=== PATIENT | female | born 1935 | race Caucasian/White ===

== ENCOUNTER 2017-06-25 15:31 | Inpatient (IN) | payer BC, MEDICARE ==
[~2017-06-25] VITALS: Ht 159.8 cm; Wt 72.6 kg
--- NOTE | 2017-06-25 15:43 | Emergency Room Report ---
History of Present Illness Present Illness HPI Patient is an 82-year-old female sent in from assisted living for increased difficulty breathing for the past for days. Patient reportedly had prior history of bronchitis. She recently been hospitalized at [facility]. Patient did have increased shortness of breath as well as chest discomfort. She reported having a productive cough. She denied prior history of cardiac disease. 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 Differential included but was not limited to anemia, pneumonia, pneumothorax, myocardial infarction, pericardial effusion, congestive heart failure, acidosis. Because of complexity of patient' s case laboratory testing and imaging studies were ordered.The patient given breathing treatments as well as steroids. Patient was started on Bipap. ABG showed adequate oxygenation without evidence of acidosis. Patient appears to have a COPD exacerbation Dr. Thierry Moreno was contacted for inpatient managment due to covering physician for custodial. Labs Test 06/25/17 15:39 06/25/17 16:20 Arterial Blood pH 7.450 (7.350-7.450) Arterial Blood Partial Pressure CO2 30.7 mmHg (35.0-45.0) Arterial Blood Partial Pressure O2 520.5 mmHg (75.0-100.0) Arterial Blood HCO3 20.9 mmol/L (22.0-26.0) Arterial Blood Oxygen Saturation 99.4 % (92.0-98.0) Arterial Blood Base Excess -2.1 Polo Test Positive Lactic Acid Level 0.90 mmol/L (0.66-2.22) White Blood Count 6.1 K/UL (4.8-10.8) Red Blood Count 4.09 M/UL (4.20-5.40) Hemoglobin 13.3 G/DL (12.0-16.0) Hematocrit 39.4 % (37.0-47.0) Mean Corpuscular Volume 96 FL (80-99) Mean Corpuscular Hemoglobin 32.5 PG (27.0-31.0) Mean Corpuscular Hemoglobin Concent 33.7 G/DL (32.0-36.0) Red Cell Distribution Width 13.2 % (11.6-14.8) Platelet Count 184 K/UL (150-450) Mean Platelet Volume 8.1 FL (6.5-10.1) Neutrophils (%) (Auto) 63.6 % (45.0-75.0) Lymphocytes (%) (Auto) 18.7 % (20.0-45.0) Monocytes (%) (Auto) 14.7 % (1.0-10.0) Eosinophils (%) (Auto) 1.5 % (0.0-3.0) Basophils (%) (Auto) 1.5 % (0.0-2.0) Sodium Level 138 MMOL/L (136-145) Potassium Level 4.1 MMOL/L (3.5-5.1) Chloride Level 102 MMOL/L (98-107) Carbon Dioxide Level 24 MMOL/L (21-32) Anion Gap 12 mmol/L (5-15) Blood Urea Nitrogen 17 mg/dL (7-18) Creatinine 1.3 MG/DL (0.55-1.30) Estimat Glomerular Filtration Rate mL/min (>60) Glucose Level 122 MG/DL (74-106) Calcium Level 8.8 MG/DL (8.5-10.1) Total Bilirubin 0.3 MG/DL (0.2-1.0) Aspartate Amino Transf (AST/SGOT) 22 U/L (15-37) Alanine Aminotransferase (ALT/SGPT) 14 U/L (12-78) Alkaline Phosphatase 80 U/L (46-116) Total Creatine Kinase 120 U/L (26-308) Creatine Kinase MB 1.1 NG/ML (0.0-3.6) Creatine Kinase MB Relative Index 0.9 Troponin I 0.000 ng/mL (0.000-0.056) Pro-B-Type Natriuretic Peptide 655 pg/mL (0-125) Total Protein 7.6 G/DL (6.4-8.2) Albumin 3.2 G/DL (3.4-5.0) Globulin 4.4 g/dL Albumin/Globulin Ratio 0.7 (1.0-2.7) EKG Diagnostic Results Rate: normal - 74 ST Segments: no acute changes Rhythm Strip Diag. Results EP Interpretation: yes Rhythm: NSR, no PVC's, no ectopy Status: improved Disposition: ADMITTED INPATIENT Condition: Serious Nick Chris Jun 25, 2017 15:43
[2017-06-25] MEDS ORDERED: ALBUTEROL2.5 MG/3 M INH (15:47)
[2017-06-25] MEDS ORDERED: ZOFRAN4 M3 ORAL (15:48)
[2017-06-25] MEDS ORDERED: LISINOPRIL5 MG ORAL (15:50)
[2017-06-25] MEDS ORDERED: DOCUSATE SODIU100 M2 ORAL (15:50)
[2017-06-25] MEDS ORDERED: ZOLPIDEM TARTRAT5 MG ORAL (15:50)
--- NOTE | 2017-06-25 16:32 | Diagnostic Imaging Report ---
Indication: Dyspnea Comparison: None A single view chest radiograph was obtained. Findings: Cardiomediastinal appearance is within normal limits for age. Mild basilar atelectasis demonstrated. Pulmonary vascularity is appropriate. The diaphragmatic contour is smooth and costophrenic angles are sharp. No pleural effusions are identified. The bones are osteopenic. Impression: No acute findings
[2017-06-25 17:08] LABS: BASOPHILS % (AUTO) 1.5 % (0.0-2.0); EOSINOPHILS % (AUTO) 1.5 % (0.0-3.0); HEMATOCRIT 39.4 % (37.0-47.0); HEMOGLOBIN 13.3 G/DL (12.0-16.0); LYMPHOCYTES % (AUTO) 18.7 % (20.0-45.0); MEAN CORPUSCULAR VOLUME 96 FL (80-99); MONOCYTES % (AUTO) 14.7 % (1.0-10.0); NEUTROPHILS % (AUTO) 63.6 % (45.0-75.0); PLATELET COUNT 184 K/UL (150-450); RED BLOOD COUNT 4.09 M/UL (4.20-5.40); RED CELL DISTRIBUTION WIDTH 13.2 % (11.6-14.8); WHITE BLOOD COUNT 6.1 K/UL (4.8-10.8)
[2017-06-25 18:15] LABS: ANION GAP 12 mmol/L (5-15); BLOOD UREA NITROGEN 17 mg/dL (7-18); CALCIUM 8.8 MG/DL (8.5-10.1); CARBON DIOXIDE 24 MMOL/L (21-32); CHLORIDE 102 MMOL/L (98-107); CREATININE 1.3 MG/DL (0.55-1.30); POTASSIUM 4.1 MMOL/L (3.5-5.1); SODIUM 138 MMOL/L (136-145)
[2017-06-25] MEDS ORDERED: Morphine Sulfate 2mg/ml Inj IVP PRN (18:30)
[2017-06-25] MEDS ORDERED: LORazepam Inj 2mg/ml 1ml IV PRN (18:30)
[2017-06-25] MEDS ORDERED: Nitroglycerin Subl 0.4mg tab SL PRN (18:30)
[2017-06-25] MEDS ORDERED: Albuterol/Ipratropium 3ml neb HHN PRN (18:30)
--- NOTE | 2017-06-25 18:33 | Consultation ---
History of Present Illness General Date patient seen: Jun 25, 2017 Chief Complaint: Dyspnea/Respdistress Present Illness HPI 82-year-old female sent in from assisted living for increased difficulty breathing for the past 5 days. She recently been hospitalized at [facility] [place]. Patient did have increased shortness of breath as well as chest discomfort. She reported having a productive cough. Allergies: Coded Allergies: ASPIRIN (Verified Allergy, Intermediate, 06/25/17) Medication History Scheduled Albuterol Sulfate* (Albuterol Sulfate Hhn*), 3 ML INH THREE TIMES A DAY, ( Reported) Docusate Sodium (Docusate Sodium), 100 MG ORAL DAILY, (Reported) Lisinopril (Lisinopril*), 10 MG ORAL DAILY, (Reported) Scheduled PRN Ondansetron* (Zofran*), 4 MG ORAL Q6H PRN for Nausea & Vomiting, (Reported) Zolpidem Tartrate* (Zolpidem Tartrate*), 5 MG ORAL BEDTIME PRN for Insomnia, ( Reported) Patient History Healthcare decision maker Resuscitation status Advanced Directive on File Past Medical/Surgical History Past Medical/Surgical History: (1) COPD (chronic obstructive pulmonary disease) Review of Systems Constitutional: Reports: no symptoms, weakness Eye: Reports: nose congestion ENT: Reports: no symptoms Respiratory: Reports: shortness of breath, wheezing, sputum Physical Exam General Appearance: WD/WN Lines, tubes and drains: peripheral HEENT: normocephalic, atraumatic Neck: non-tender, supple Respiratory/Chest: rhonchi - bilaterally, rhonchi - left, rhonchi - right, expiratory wheezing Cardiovascular/Chest: normal peripheral pulses, normal rate Abdomen: normal bowel sounds, non tender Genitourinary/Rectal: normal genital exam, heme negative stool Extremities: normal range of motion Skin Exam: normal pigmentation 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: 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 Last 24 Hour Vital Signs Date Time Temp Pulse Resp B/P (MAP) Pulse Ox O2 Delivery O2 Flow Rate FiO2 06/25/17 17:04 30 06/25/17 16:47 68 23 100 Facial 100 06/25/17 16:16 67 20 100 Facial 100 06/25/17 16:16 67 20 Bi-pap 100 06/25/17 15:37 97.9 78 22 144/67 96 Non-Rebreather 97.9 Laboratory Tests Test 06/25/17 15:39 06/25/17 16:20 Arterial Blood pH 7.450 (7.350-7.450) Arterial Blood Partial Pressure CO2 30.7 mmHg (35.0-45.0) L Arterial Blood Partial Pressure O2 520.5 mmHg (75.0-100.0) H Arterial Blood HCO3 20.9 mmol/L (22.0-26.0) L Arterial Blood Oxygen Saturation 99.4 % (92.0-98.0) H Arterial Blood Base Excess -2.1 Polo Test Positive White Blood Count 6.1 K/UL (4.8-10.8) Red Blood Count 4.09 M/UL (4.20-5.40) L Hemoglobin 13.3 G/DL (12.0-16.0) Hematocrit 39.4 % (37.0-47.0) Mean Corpuscular Volume 96 FL (80-99) Mean Corpuscular Hemoglobin 32.5 PG (27.0-31.0) H Mean Corpuscular Hemoglobin Concent 33.7 G/DL (32.0-36.0) Red Cell Distribution Width 13.2 % (11.6-14.8) Platelet Count 184 K/UL (150-450) Mean Platelet Volume 8.1 FL (6.5-10.1) Neutrophils (%) (Auto) 63.6 % (45.0-75.0) Lymphocytes (%) (Auto) 18.7 % (20.0-45.0) L Monocytes (%) (Auto) 14.7 % (1.0-10.0) H Eosinophils (%) (Auto) 1.5 % (0.0-3.0) Basophils (%) (Auto) 1.5 % (0.0-2.0) Sodium Level 138 MMOL/L (136-145) Potassium Level 4.1 MMOL/L (3.5-5.1) Chloride Level 102 MMOL/L (98-107) Carbon Dioxide Level 24 MMOL/L (21-32) Anion Gap 12 mmol/L (5-15) Blood Urea Nitrogen 17 mg/dL (7-18) Creatinine 1.3 MG/DL (0.55-1.30) Estimat Glomerular Filtration Rate mL/min (>60) Glucose Level 122 MG/DL (74-106) H Calcium Level 8.8 MG/DL (8.5-10.1) Total Bilirubin Pending Aspartate Amino Transf (AST/SGOT) Pending Alanine Aminotransferase (ALT/SGPT) Pending Alkaline Phosphatase Pending Total Creatine Kinase Pending Creatine Kinase MB Pending Troponin I 0.000 ng/mL (0.000-0.056) Pro-B-Type Natriuretic Peptide Pending Total Protein Pending Albumin Pending Globulin Pending Height (Feet): 5 Height (Inches): 3.00 Weight (Pounds): 160 Medications Current Medications Medications (Trade) Dose Ordered Sig/Beto Route PRN Reason Start Time Stop Time Status Last Admin Dose Admin Albuterol/ Ipratropium (Albuterol/ Ipratropium) 3 ml Q4H PRN HHN dyspnea 06/25/17 18:30 06/30/17 18:29 Dextrose (Dextrose 50%) STAT PRN IV Hypoglycemia 06/25/17 18:30 07/25/17 18:29 UNV Heparin Sodium (Porcine) (Heparin 5000 units/ml) 5,000 units EVERY 12 HOURS SUBQ 06/25/17 21:00 07/25/17 20:59 Lorazepam (Ativan 2mg/ml 1ml) 0.5 mg Q4H PRN IV For Anxiety 06/25/17 18:30 07/02/17 18:29 Methylprednisolone Sodium Succinate (Solu-MEDROL) 60 mg EVERY 6 HOURS IV 06/26/17 00:00 07/26/17 00:00 Morphine Sulfate (Morphine Sulfate) 2 mg Q4H PRN IVP severe pain 7-10 06/25/17 18:30 07/02/17 18:29 Nitroglycerin (Ntg) 0.4 mg Q5M X 3 DOSES PRN SL Prn Chest Pain 06/25/17 18:30 07/25/17 18:29 Ondansetron HCl (Zofran) 4 mg Q6H PRN IVP Nausea & Vomiting 06/25/17 18:30 07/25/17 18:29 Piperacillin Sod/ Tazobactam Sod 2.25 gm/Dextrose 55 ml @ 110 mls/hr EVERY 8 HOURS IV 06/25/17 22:00 06/30/17 21:59 UNV Promethazine HCl/ Codeine (Phenergan with Codeine) 5 ml EVERY 6 HOURS PRN ORAL cough 06/25/17 18:30 07/25/17 18:29 UNV Temazepam (Restoril) 15 mg HSPRN PRN ORAL Insomnia 06/25/17 18:30 07/02/17 18:29 UNV Theophylline (Claude-Dur) 100 mg EVERY 12 HOURS ORAL 06/25/17 21:00 07/25/17 20:59 UNV Assessment/Plan Problem List: (1) Acute respiratory failure ICD Codes: J96.00 - Acute respiratory failure, unspecified whether with hypoxia or hypercapnia SNOMED: 16145011 (2) COPD with exacerbation ICD Codes: J44.1 - Chronic obstructive pulmonary disease with (acute) exacerbation SNOMED: 572791105 (3) Purulent bronchitis ICD Codes: J41.1 - Mucopurulent chronic bronchitis SNOMED: 66933451 (4) COPD (chronic obstructive pulmonary disease) ICD Codes: J44.9 - Chronic obstructive pulmonary disease, unspecified SNOMED: 43258578 Assessment/Plan respiratory treatment IV asteroids Iv abx echo echocardiogram titrate fio2 to sat of 92% chest PT JIM SAHNI Jun 25, 2017 18:33
[2017-06-25 18:37] LABS: ALANINE AMINOTRANSFERASE 14 U/L (12-78); ALBUMIN 3.2 G/DL (3.4-5.0); ALBUMIN/GLOBULIN RATIO 0.7 (1.0-2.7); ALKALINE PHOSPHATASE 80 U/L (46-116); ASPARTATE AMINO TRANSFERASE 22 U/L (15-37); BILIRUBIN,TOTAL 0.3 MG/DL (0.2-1.0); CKMB 1.1 NG/ML (0.0-3.6); CREATINE KINASE 120 U/L (26-308)
[2017-06-25 19:26] VITALS: BP 122/50
[2017-06-25 20:30] VITALS: BP 123/56
[2017-06-25] MEDS ORDERED: Piperacillin/Tazobactam 2.25 GM in D5W 55 ML IV SCH (22:00)
[2017-06-25] MEDS: Theophylline ER 100mg ORAL SCH (22:15)
[2017-06-25] MEDS: Zosyn 3.375gm q8h **Extended infusion IVPB SCH ×2 (22:16)
[2017-06-25] MEDS: Heparin 5000 units/ml inj SUBQ SCH (22:18)
--- NOTE | 2017-06-25 23:39 | History & Physical ---
History and Physical History & Physicial patient seen and examined placed on BIPAP. wheezing on exam. H&P to be dictated Ordered placed Labs/imaging reviewed HERIBERTO MEDINA M.D. Jun 25, 2017 23:39
[2017-06-26] VITALS: BP 154/71
[2017-06-26] MEDS: Solu-MEDROL 125mg Inj IV SCH ×5 (00:13→23:28)
[2017-06-26] MEDS ORDERED: Milk of Magnesia 30ml Ud ORAL PRN (03:00)
[2017-06-26 04:00] VITALS: BP 120/59
[2017-06-26] MEDS: Zosyn 3.375gm q8h **Extended infusion IVPB SCH ×6 (05:39→21:03)
[2017-06-26 08:00] VITALS: BP 128/60
[2017-06-26] MEDS: Theophylline ER 100mg ORAL SCH ×2 (08:20→21:01)
[2017-06-26] MEDS: Heparin 5000 units/ml inj SUBQ SCH ×2 (08:21→21:01)
--- NOTE | 2017-06-26 10:04 | Pulmonology Progress Note ---
Assessment/Plan Problems: (1) Acute respiratory failure (2) COPD with exacerbation (3) Purulent bronchitis (4) COPD (chronic obstructive pulmonary disease) Assessment/Plan slightly better add Tamiflu check sputum titrate fio2 check echo dvt prophylaxis d/w dr Paul Subjective ROS Limited/Unobtainable: No Constitutional: Reports: no symptoms HEENT: Repors: no symptoms Respiratory: Reports: no symptoms Allergies: Coded Allergies: ASPIRIN (Verified Allergy, Intermediate, 06/25/17) Objective Last 24 Hour Vital Signs Date Time Temp Pulse Resp B/P (MAP) Pulse Ox O2 Delivery O2 Flow Rate FiO2 06/26/17 08:00 99.0 94 21 128/60 97 Nasal Cannula 3.0 06/26/17 07:48 32 06/26/17 07:37 102 06/26/17 06:07 82 20 98 Nasal Cannula 3.0 32 06/26/17 06:00 76 22 94 Nasal Cannula 3.0 32 06/26/17 06:00 36 06/26/17 05:07 83 22 99 Facial 30 06/26/17 04:02 67 06/26/17 04:00 30 06/26/17 04:00 99.4 67 20 120/59 94 Bi-pap 30 06/26/17 03:02 73 18 97 Facial 30 06/26/17 01:08 81 28 100 Facial 30 06/26/17 00:00 30 06/26/17 00:00 98.1 80 20 154/71 90 Bi-pap 06/25/17 23:53 69 06/25/17 23:27 69 26 100 Facial 30 06/25/17 21:27 74 28 99 Facial 30 06/25/17 20:30 74 20 Bi-pap 30 06/25/17 20:30 73 16 123/56 97 Bi-pap 06/25/17 19:45 98.6 74 20 122/50 98 Bi-pap 06/25/17 19:26 98.0 74 20 122/50 98 Bi-pap 98.0 06/25/17 19:04 71 24 100 Facial 30 06/25/17 17:04 30 06/25/17 16:47 68 23 100 Facial 100 06/25/17 16:16 67 20 100 Facial 100 06/25/17 16:16 67 20 Bi-pap 100 06/25/17 15:37 97.9 78 22 144/67 96 Non-Rebreather 97.9 Intake and Output 06/25/17 06/26/17 19:00 07:00 Intake Total 387.1 ml Output Total 350 ml Balance 37.1 ml Intake Oral 240 ml IV Total 147.1 ml Output Urine Total 350 ml # Voids 3 Objective General Appearance: WD/WN Lines, tubes and drains: peripheral HEENT: normocephalic, atraumatic Neck: non-tender, supple Respiratory/Chest: rhonchi - bilaterally, rhonchi - left, rhonchi - right, expiratory wheezing Cardiovascular/Chest: normal peripheral pulses, normal rate Abdomen: normal bowel sounds, non tender Genitourinary/Rectal: normal genital exam, heme negative stool Extremities: normal range of motion Skin Exam: normal pigmentation Microbiology Date/Time Source Procedure Growth Status 06/25/17 20:00 Nasal Nares Influenza Types A,B Antigen (DOROTHY) - Final Complete Laboratory Tests 06/25/17 15:39: Arterial Blood pH 7.450, Arterial Blood Partial Pressure CO2 30.7L, Arterial Blood Partial Pressure O2 520.5H, Arterial Blood HCO3 20.9L, Arterial Blood Oxygen Saturation 99.4H, Arterial Blood Base Excess -2.1, Polo Test Positive, Lactic Acid Level 0.90 06/25/17 16:20: White Blood Count 6.1, Red Blood Count 4.09L, Hemoglobin 13.3, Hematocrit 39.4, Mean Corpuscular Volume 96, Mean Corpuscular Hemoglobin 32.5H, Mean Corpuscular Hemoglobin Concent 33.7, Red Cell Distribution Width 13.2, Platelet Count 184, Mean Platelet Volume 8.1, Neutrophils (%) (Auto) 63.6, Lymphocytes (%) (Auto) 18.7L, Monocytes (%) (Auto) 14.7H, Eosinophils (%) (Auto) 1.5, Basophils (%) ( Auto) 1.5, Sodium Level 138, Potassium Level 4.1, Chloride Level 102, Carbon Dioxide Level 24, Anion Gap 12, Blood Urea Nitrogen 17, Creatinine 1.3, Estimat Glomerular Filtration Rate , Glucose Level 122H, Calcium Level 8.8, Total Bilirubin 0.3, Aspartate Amino Transf (AST/SGOT) 22, Alanine Aminotransferase ( ALT/SGPT) 14, Alkaline Phosphatase 80, Total Creatine Kinase 120, Creatine Kinase MB 1.1, Creatine Kinase MB Relative Index 0.9, Troponin I 0.000, Pro-B- Type Natriuretic Peptide 655H, Total Protein 7.6, Albumin 3.2L, Globulin 4.4, Albumin/Globulin Ratio 0.7L Current Medications Medications (Trade) Dose Ordered Sig/Beto Route PRN Reason Start Time Stop Time Status Last Admin Dose Admin Acetaminophen (Tylenol) 650 mg Q4H PRN ORAL For Pain 06/26/17 03:00 07/26/17 02:59 Albuterol/ Ipratropium (Albuterol/ Ipratropium) 3 ml Q4H PRN HHN dyspnea 06/25/17 18:30 06/30/17 18:29 06/26/17 06:06 Dextrose (Dextrose 50%) STAT PRN IV Hypoglycemia 06/25/17 18:30 07/25/17 18:29 Diphenhydramine HCl (Benadryl) 25 mg Q8H PRN ORAL Itching 06/26/17 03:00 07/26/17 02:59 Heparin Sodium (Porcine) (Heparin 5000 units/ml) 5,000 units EVERY 12 HOURS SUBQ 06/25/17 21:00 07/25/17 20:59 06/26/17 08:21 Lorazepam (Ativan 2mg/ml 1ml) 0.5 mg Q4H PRN IV For Anxiety 06/25/17 18:30 07/02/17 18:29 Magnesium Hydroxide (Mom) 30 ml Q24HRS PRN ORAL Constipation 06/26/17 03:00 07/26/17 02:59 Methylprednisolone Sodium Succinate (Solu-MEDROL) 60 mg EVERY 6 HOURS IV 06/26/17 00:00 07/26/17 00:00 06/26/17 05:36 Morphine Sulfate (Morphine Sulfate) 2 mg Q4H PRN IVP severe pain 7-10 06/25/17 18:30 07/02/17 18:29 Nitroglycerin (Ntg) 0.4 mg Q5M X 3 DOSES PRN SL Prn Chest Pain 06/25/17 18:30 07/25/17 18:29 Ondansetron HCl (Zofran) 4 mg Q6H PRN IVP Nausea & Vomiting 06/25/17 18:30 07/25/17 18:29 Oseltamivir Phosphate (Tamiflu) 75 mg Q12HR ORAL 06/26/17 11:00 07/01/17 23:59 Piperacillin Sod/ Tazobactam Sod 3.375 gm/Sodium Chloride 110 ml @ 27.5 mls/hr EVERY 8 HOURS IVPB 06/25/17 20:00 06/30/17 19:59 06/26/17 05:39 Promethazine HCl/ Codeine (Phenergan with Codeine) 5 ml Q6H PRN ORAL cough 06/25/17 18:30 07/25/17 18:29 Temazepam (Restoril) 15 mg HSPRN PRN ORAL Insomnia 06/25/17 21:00 07/02/17 20:59 Theophylline (Claude-Dur) 100 mg EVERY 12 HOURS ORAL 06/25/17 21:00 07/25/17 20:59 06/26/17 08:20 JIM SAHNI Jun 26, 2017 10:04
[2017-06-26] MEDS ORDERED: Oseltamivir 75mg cap ORAL SCH (11:00)
[2017-06-26] MEDS ORDERED: Tubing IV Secondary IV ONE (11:15)
[2017-06-26] MEDS ORDERED: NS 500ML ONE (11:15)
[2017-06-26 12:00] VITALS: BP 120/60
--- NOTE | 2017-06-26 13:12 | Internal Med Progress Note ---
Subjective Physician Name Heriberto Medina Attending Physician Heriberto Medina M.D. Current Medications Medications (Trade) Dose Ordered Sig/Beto Route PRN Reason Start Time Stop Time Status Last Admin Dose Admin Acetaminophen (Tylenol) 650 mg Q4H PRN ORAL For Pain 06/26/17 03:00 07/26/17 02:59 Albuterol/ Ipratropium (Albuterol/ Ipratropium) 3 ml Q4H PRN HHN dyspnea 06/25/17 18:30 06/30/17 18:29 06/26/17 06:06 Dextrose (Dextrose 50%) STAT PRN IV Hypoglycemia 06/25/17 18:30 07/25/17 18:29 Diphenhydramine HCl (Benadryl) 25 mg Q8H PRN ORAL Itching 06/26/17 03:00 07/26/17 02:59 Heparin Sodium (Porcine) (Heparin 5000 units/ml) 5,000 units EVERY 12 HOURS SUBQ 06/25/17 21:00 07/25/17 20:59 06/26/17 08:21 Lorazepam (Ativan 2mg/ml 1ml) 0.5 mg Q4H PRN IV For Anxiety 06/25/17 18:30 07/02/17 18:29 Magnesium Hydroxide (Mom) 30 ml Q24HRS PRN ORAL Constipation 06/26/17 03:00 07/26/17 02:59 Methylprednisolone Sodium Succinate (Solu-MEDROL) 60 mg EVERY 6 HOURS IV 06/26/17 00:00 07/26/17 00:00 06/26/17 12:54 Morphine Sulfate (Morphine Sulfate) 2 mg Q4H PRN IVP severe pain 7-10 06/25/17 18:30 07/02/17 18:29 Nitroglycerin (Ntg) 0.4 mg Q5M X 3 DOSES PRN SL Prn Chest Pain 06/25/17 18:30 07/25/17 18:29 Ondansetron HCl (Zofran) 4 mg Q6H PRN IVP Nausea & Vomiting 06/25/17 18:30 07/25/17 18:29 Oseltamivir Phosphate (Tamiflu) 75 mg Q12HR ORAL 06/26/17 11:00 07/01/17 23:59 06/26/17 12:53 Piperacillin Sod/ Tazobactam Sod 3.375 gm/Sodium Chloride 110 ml @ 27.5 mls/hr EVERY 8 HOURS IVPB 06/25/17 20:00 06/30/17 19:59 06/26/17 05:39 Promethazine HCl/ Codeine (Phenergan with Codeine) 5 ml Q6H PRN ORAL cough 06/25/17 18:30 07/25/17 18:29 Temazepam (Restoril) 15 mg HSPRN PRN ORAL Insomnia 06/25/17 21:00 07/02/17 20:59 Theophylline (Claude-Dur) 100 mg EVERY 12 HOURS ORAL 06/25/17 21:00 07/25/17 20:59 06/26/17 08:20 Allergies: Coded Allergies: ASPIRIN (Verified Allergy, Intermediate, 06/25/17) All Systems: reviewed and negative except above - cough, less SOB Objective Last Vital Signs Date Time Temp Pulse Resp B/P (MAP) Pulse Ox O2 Delivery O2 Flow Rate FiO2 06/26/17 11:28 68 06/26/17 08:00 99.0 21 128/60 97 Nasal Cannula 3.0 06/26/17 07:48 32 General Appearance: no apparent distress, alert EENT: normal ENT inspection, TMs normal Neck: normal alignment, supple Cardiovascular: normal rate, regular rhythm Respiratory/Chest: no respiratory distress, decreased breath sounds Abdomen: soft, no organomegaly, no mass Edema: trace edema Neurologic: alert, responsive Skin: normal pigmentation, warm/dry, cyanotic Laboratory Tests Test 06/25/17 15:39 06/25/17 16:20 Arterial Blood pH 7.450 (7.350-7.450) Arterial Blood Partial Pressure CO2 30.7 mmHg (35.0-45.0) L Arterial Blood Partial Pressure O2 520.5 mmHg (75.0-100.0) H Arterial Blood HCO3 20.9 mmol/L (22.0-26.0) L Arterial Blood Oxygen Saturation 99.4 % (92.0-98.0) H Arterial Blood Base Excess -2.1 Polo Test Positive Lactic Acid Level 0.90 mmol/L (0.66-2.22) White Blood Count 6.1 K/UL (4.8-10.8) Red Blood Count 4.09 M/UL (4.20-5.40) L Hemoglobin 13.3 G/DL (12.0-16.0) Hematocrit 39.4 % (37.0-47.0) Mean Corpuscular Volume 96 FL (80-99) Mean Corpuscular Hemoglobin 32.5 PG (27.0-31.0) H Mean Corpuscular Hemoglobin Concent 33.7 G/DL (32.0-36.0) Red Cell Distribution Width 13.2 % (11.6-14.8) Platelet Count 184 K/UL (150-450) Mean Platelet Volume 8.1 FL (6.5-10.1) Neutrophils (%) (Auto) 63.6 % (45.0-75.0) Lymphocytes (%) (Auto) 18.7 % (20.0-45.0) L Monocytes (%) (Auto) 14.7 % (1.0-10.0) H Eosinophils (%) (Auto) 1.5 % (0.0-3.0) Basophils (%) (Auto) 1.5 % (0.0-2.0) Sodium Level 138 MMOL/L (136-145) Potassium Level 4.1 MMOL/L (3.5-5.1) Chloride Level 102 MMOL/L (98-107) Carbon Dioxide Level 24 MMOL/L (21-32) Anion Gap 12 mmol/L (5-15) Blood Urea Nitrogen 17 mg/dL (7-18) Creatinine 1.3 MG/DL (0.55-1.30) Estimat Glomerular Filtration Rate mL/min (>60) Glucose Level 122 MG/DL (74-106) H Calcium Level 8.8 MG/DL (8.5-10.1) Total Bilirubin 0.3 MG/DL (0.2-1.0) Aspartate Amino Transf (AST/SGOT) 22 U/L (15-37) Alanine Aminotransferase (ALT/SGPT) 14 U/L (12-78) Alkaline Phosphatase 80 U/L (46-116) Total Creatine Kinase 120 U/L (26-308) Creatine Kinase MB 1.1 NG/ML (0.0-3.6) Creatine Kinase MB Relative Index 0.9 Troponin I 0.000 ng/mL (0.000-0.056) Pro-B-Type Natriuretic Peptide 655 pg/mL (0-125) H Total Protein 7.6 G/DL (6.4-8.2) Albumin 3.2 G/DL (3.4-5.0) L Globulin 4.4 g/dL Albumin/Globulin Ratio 0.7 (1.0-2.7) L Microbiology Date/Time Source Procedure Growth Status 06/25/17 20:00 Nasal Nares Influenza Types A,B Antigen (DOROTHY) - Final Complete Intake and Output 06/25/17 06/26/17 19:00 07:00 Intake Total 387.1 ml Output Total 350 ml Balance 37.1 ml Intake Oral 240 ml IV Total 147.1 ml Output Urine Total 350 ml # Voids 3 Assessment/Plan Assessment/Plan Problem List: 1. COPD Exacerbation - improving - TERESA - BIPAP prn - Pulmonary consult - Solumedrol 60mg IV Q 6hrs - Duoneb Q 6 ATC and prn - Tamiflu empirically despite negative flu screen 2. htn -- controlled 3. h/o osteomyelitis HERIBERTO MEDINA M.D. Jun 26, 2017 13:12
[2017-06-26] MEDS: Promethazine/Codeine 5ml UD ORAL PRN (13:20)
[2017-06-26] MEDS: Albuterol/Ipratropium 3ml neb HHN SCH ×2 (14:16→18:53)
[2017-06-26 16:00] VITALS: BP 122/60
--- NOTE | 2017-06-26 16:38 | Cardiology Report ---
APPROVED REPORT EXAM: Two-dimensional and M-mode echocardiogram with Doppler and color Doppler. INDICATION Left ventricular function M-Mode DIMENSIONS IVSd0.7 (0.7-1.1cm)Left Atrium (MM)4.2 (1.6-4.0cm) LVDd4.1 (3.5-5.6cm)Aortic Root2.7 (2.0-3.7cm) PWd0.9 (0.7-1.1cm)Aortic Cusp Exc.1.6 (1.5-2.0cm) LVDs2.1 (2.5-4.0cm) PWs1.0 cm Technically difficult study due to poor acoustical windows. Normal left ventricular chamber size, systolic function and wall motion. Left ventricular ejection fraction estimated to be 60-65%. No evidence of left ventricular hypertrophy. Small posterior pericardial effusion. All other cardiac chamber sizes are within normal limits. Focal aortic valve sclerosis with adequate cusp excursion. Thickened mitral valve leaflets with normal excursion. Mild mitral annulus and aortic root calcification. Pulmonic valve not well visualized. Normal tricuspid valve structure. IVC is normal in size and collapsible with respiration. A color flow and spectral Doppler study was performed and revealed: No aortic regurgitation. No mitral regurgitation. Mitral diastolic velocities suggest reduced left ventricular relaxation c/w diastolic dysfunction grade 1. No tricuspid regurgitation.
--- NOTE | 2017-06-26 17:01 | Cardiology Report ---
APPROVED REPORT EKG Measurement Heart [id number] Normal sinus rhythm Moderate voltage criteria for LVH, may be normal variant delay in r wave progression Borderline ECG
[2017-06-26 20:00] VITALS: BP 120/57
[2017-06-27] VITALS (7 sets, daily range): BP systolic 125–149; BP diastolic 59–98
[2017-06-27] MEDS: Albuterol/Ipratropium 3ml neb HHN SCH ×4 (00:42→20:18)
[2017-06-27] MEDS: Solu-MEDROL 125mg Inj IV SCH ×2 (05:16→21:39)
[2017-06-27] MEDS: Zosyn 3.375gm q8h **Extended infusion IVPB SCH ×4 (05:16→14:35)
[2017-06-27 06:12] LABS: CARBON DIOXIDE 28 MMOL/L (21-32); CHLORIDE 102 MMOL/L (98-107); POTASSIUM 3.1 MMOL/L (3.5-5.1); SODIUM 137 MMOL/L (136-145)
[2017-06-27 06:13] LABS: ANION GAP 9 mmol/L (5-15); BLOOD UREA NITROGEN 18 mg/dL (7-18); CALCIUM 8.4 MG/DL (8.5-10.1); CREATININE 1.4 MG/DL (0.55-1.30)
[2017-06-27 06:14] LABS: ALANINE AMINOTRANSFERASE 13 U/L (12-78); ALBUMIN 2.7 G/DL (3.4-5.0); ALBUMIN/GLOBULIN RATIO 0.7 (1.0-2.7); ALKALINE PHOSPHATASE 62 U/L (46-116); ASPARTATE AMINO TRANSFERASE 12 U/L (15-37); BILIRUBIN,TOTAL 0.3 MG/DL (0.2-1.0)
[2017-06-27 06:24] LABS: WHITE BLOOD COUNT 8.2 K/UL (4.8-10.8)
[2017-06-27 06:25] LABS: HEMATOCRIT 32.1 % (37.0-47.0); LYMPHOCYTES % (AUTO) 15.2 % (20.0-45.0); MEAN CORPUSCULAR VOLUME 94 FL (80-99); MONOCYTES % (AUTO) 7.4 % (1.0-10.0); PLATELET COUNT 190 K/UL (150-450); RED CELL DISTRIBUTION WIDTH 13.2 % (11.6-14.8)
[2017-06-27 06:26] LABS: BASOPHILS % (AUTO) 0.4 % (0.0-2.0)
[2017-06-27] MEDS: Promethazine/Codeine 5ml UD ORAL PRN ×2 (08:16→14:46)
[2017-06-27] MEDS: Heparin 5000 units/ml inj SUBQ SCH ×2 (08:17→21:39)
[2017-06-27] MEDS: Theophylline ER 100mg ORAL SCH ×2 (08:17→21:37)
--- NOTE | 2017-06-27 10:44 | Pulmonology Progress Note ---
Assessment/Plan Problems: (1) Acute respiratory failure (2) COPD with exacerbation (3) Purulent bronchitis (4) COPD (chronic obstructive pulmonary disease) Assessment/Plan slightly better add Tamiflu check sputum titrate fio2 check echo d[facility] and repeat BC Subjective ROS Limited/Unobtainable: No Interval Events: less cough Allergies: Coded Allergies: ASPIRIN (Verified Allergy, Intermediate, 06/25/17) Objective Last 24 Hour Vital Signs Date Time Temp Pulse Resp B/P (MAP) Pulse Ox O2 Delivery O2 Flow Rate FiO2 06/27/17 08:00 96.3 99 21 136/72 98 Nasal Cannula 3.5 06/27/17 07:46 103 06/27/17 07:30 84 18 100 Nasal Cannula 3.0 32 06/27/17 07:24 32 06/27/17 07:24 80 18 96 Nasal Cannula 3.0 32 06/27/17 04:00 96.6 77 20 127/60 95 Nasal Cannula 3.0 06/27/17 04:00 84 06/27/17 00:57 77 20 98 Nasal Cannula 3.0 32 06/27/17 00:41 32 06/27/17 00:41 77 20 98 Nasal Cannula 3.0 32 06/27/17 00:00 97.0 77 20 130/59 98 Nasal Cannula 3.0 06/26/17 23:25 75 06/26/17 20:00 97.6 92 24 120/57 97 Nasal Cannula 3.0 06/26/17 19:12 78 20 97 Nasal Cannula 3.0 32 06/26/17 19:07 87 06/26/17 18:57 78 20 Nasal Cannula 3.0 32 06/26/17 18:53 32 06/26/17 18:51 78 20 97 Nasal Cannula 3.0 32 06/26/17 16:00 98.0 72 20 122/60 96 Nasal Cannula 3.0 06/26/17 14:28 80 20 99 Nasal Cannula 3.0 32 06/26/17 14:17 70 18 96 Nasal Cannula 3.0 32 06/26/17 14:17 32 06/26/17 13:30 79 06/26/17 12:00 98.7 71 22 120/60 97 Nasal Cannula 3.0 06/26/17 11:28 68 Intake and Output 06/26/17 06/27/17 19:00 07:00 Intake Total 487.9 ml 270.0 ml Balance 487.9 ml 270.0 ml Intake Oral 360 ml 50 ml IV Total 127.9 ml 220.0 ml # Voids 3 2 # Bowel Movements 8 2 Objective General Appearance: WD/WN Lines, tubes and drains: peripheral HEENT: normocephalic, atraumatic Neck: non-tender, supple Respiratory/Chest: rhonchi - bilaterally, rhonchi - left, rhonchi - right, expiratory wheezing Cardiovascular/Chest: normal peripheral pulses, normal rate Abdomen: normal bowel sounds, non tender Genitourinary/Rectal: normal genital exam, heme negative stool Extremities: normal range of motion Skin Exam: normal pigmentation Microbiology Date/Time Source Procedure Growth Status 06/25/17 16:20 Blood Blood Culture - Preliminary Resulted 06/25/17 16:20 Blood Blood Culture - Preliminary NO GROWTH AFTER 24 HOURS Resulted 06/26/17 06:00 Sputum Gram Stain Pending Resulted 06/26/17 06:00 Sputum Sputum Culture - Preliminary NORMAL UPPER RESPIRATORY PEACE AT 24 ... Resulted 06/25/17 20:00 Nasal Nares Influenza Types A,B Antigen (DOROTHY) - Final Complete Laboratory Tests 06/27/17 03:50: White Blood Count 8.2, Red Blood Count 3.40L, Hemoglobin 11.0L, Hematocrit 32.1L , Mean Corpuscular Volume 94, Mean Corpuscular Hemoglobin 32.3H, Mean Corpuscular Hemoglobin Concent 34.2, Red Cell Distribution Width 13.2, Platelet Count 190, Mean Platelet Volume 7.9, Neutrophils (%) (Auto) 77.0H, Lymphocytes ( %) (Auto) 15.2L, Monocytes (%) (Auto) 7.4, Eosinophils (%) (Auto) 0.0, Basophils (%) (Auto) 0.4, Sodium Level 137, Potassium Level 3.1L, Chloride Level 102, Carbon Dioxide Level 28, Anion Gap 9, Blood Urea Nitrogen 18, Creatinine 1.4H, Estimat Glomerular Filtration Rate , Glucose Level 262#H, Calcium Level 8.4L, Total Bilirubin 0.3, Aspartate Amino Transf (AST/SGOT) 12L, Alanine Aminotransferase (ALT/SGPT) 13, Alkaline Phosphatase 62, Pro-B-Type Natriuretic Peptide 695H, Total Protein 6.7, Albumin 2.7L, Globulin 4.0, Albumin /Globulin Ratio 0.7L Current Medications Medications (Trade) Dose Ordered Sig/Beto Route PRN Reason Start Time Stop Time Status Last Admin Dose Admin Acetaminophen (Tylenol) 650 mg Q4H PRN ORAL For Pain 06/26/17 03:00 07/26/17 02:59 Albuterol/ Ipratropium (Albuterol/ Ipratropium) 3 ml Q4H PRN HHN dyspnea 06/25/17 18:30 06/30/17 18:29 06/26/17 06:06 Albuterol/ Ipratropium (Albuterol/ Ipratropium) 3 ml Q6HRT HHN 06/26/17 13:30 07/01/17 13:29 06/27/17 07:24 Dextrose (Dextrose 50%) STAT PRN IV Hypoglycemia 06/25/17 18:30 07/25/17 18:29 Diphenhydramine HCl (Benadryl) 25 mg Q8H PRN ORAL Itching 06/26/17 03:00 07/26/17 02:59 Heparin Sodium (Porcine) (Heparin 5000 units/ml) 5,000 units EVERY 12 HOURS SUBQ 06/25/17 21:00 07/25/17 20:59 06/27/17 08:17 Lorazepam (Ativan 2mg/ml 1ml) 0.5 mg Q4H PRN IV For Anxiety 06/25/17 18:30 07/02/17 18:29 Magnesium Hydroxide (Mom) 30 ml Q24HRS PRN ORAL Constipation 06/26/17 03:00 07/26/17 02:59 Methylprednisolone Sodium Succinate (Solu-MEDROL) 60 mg EVERY 6 HOURS IV 06/26/17 00:00 07/26/17 00:00 06/27/17 05:16 Morphine Sulfate (Morphine Sulfate) 2 mg Q4H PRN IVP severe pain 7-10 06/25/17 18:30 07/02/17 18:29 Nitroglycerin (Ntg) 0.4 mg Q5M X 3 DOSES PRN SL Prn Chest Pain 06/25/17 18:30 07/25/17 18:29 Ondansetron HCl (Zofran) 4 mg Q6H PRN IVP Nausea & Vomiting 06/25/17 18:30 07/25/17 18:29 Oseltamivir Phosphate (Tamiflu) 30 mg Q12HR ORAL 06/26/17 21:00 07/01/17 23:59 06/27/17 08:16 Piperacillin Sod/ Tazobactam Sod 3.375 gm/Sodium Chloride 110 ml @ 27.5 mls/hr EVERY 8 HOURS IVPB 06/25/17 20:00 06/30/17 19:59 06/27/17 05:16 Promethazine HCl/ Codeine (Phenergan with Codeine) 5 ml Q6H PRN ORAL cough 06/25/17 18:30 07/25/17 18:29 06/27/17 08:16 Temazepam (Restoril) 15 mg HSPRN PRN ORAL Insomnia 06/25/17 21:00 07/02/17 20:59 Theophylline (Claude-Dur) 100 mg EVERY 12 HOURS ORAL 06/25/17 21:00 07/25/17 20:59 06/27/17 08:17 JIM SAHNI Jun 27, 2017 10:44
--- NOTE | 2017-06-27 11:42 | Diagnostic Imaging Report ---
Indication: Dyspnea Comparison: 06/25/2017 A single view chest radiograph was obtained. Findings: Cardiomediastinal appearance is within normal limits for age. Pulmonary vascularity is appropriate. The diaphragmatic contour is smooth and costophrenic angles are sharp. No pleural effusions are identified. The bones are osteopenic. Impression: No acute findings
[2017-06-27 13:36] LABS: APPEARANCE,URINE CLEAR; BILIRUBIN, URINE NEGATIVE (NEGATIVE); COLOR,URINE PALE YELLOW; GLUCOSE, URINE (UA) 2+ (NEGATIVE); KETONES,URINE NEGATIVE (NEGATIVE); LEUKOCYTE ESTERASE ,URINE 1+ (NEGATIVE); NITRITE,URINE NEGATIVE (NEGATIVE); PH,URINE 5 (4.5-8.0); PROTEIN,URINE NEGATIVE (NEGATIVE); UROBILINOGEN,URINE NORMAL MG/DL (0.0-1.0)
--- NOTE | 2017-06-27 15:48 | Internal Med Progress Note ---
Subjective Physician Name Heriberto Medina Attending Physician Heriberto Medina M.D. Current Medications Medications (Trade) Dose Ordered Sig/Beto Route PRN Reason Start Time Stop Time Status Last Admin Dose Admin Acetaminophen (Tylenol) 650 mg Q4H PRN ORAL For Pain 06/26/17 03:00 07/26/17 02:59 Albuterol/ Ipratropium (Albuterol/ Ipratropium) 3 ml Q4H PRN HHN dyspnea 06/25/17 18:30 06/30/17 18:29 06/26/17 06:06 Albuterol/ Ipratropium (Albuterol/ Ipratropium) 3 ml Q6HRT HHN 06/26/17 13:30 07/01/17 13:29 06/27/17 13:15 Dextrose (Dextrose 50%) STAT PRN IV Hypoglycemia 06/25/17 18:30 07/25/17 18:29 Diphenhydramine HCl (Benadryl) 25 mg Q8H PRN ORAL Itching 06/26/17 03:00 07/26/17 02:59 Heparin Sodium (Porcine) (Heparin 5000 units/ml) 5,000 units EVERY 12 HOURS SUBQ 06/25/17 21:00 07/25/17 20:59 06/27/17 08:17 Lorazepam (Ativan 2mg/ml 1ml) 0.5 mg Q4H PRN IV For Anxiety 06/25/17 18:30 07/02/17 18:29 Magnesium Hydroxide (Mom) 30 ml Q24HRS PRN ORAL Constipation 06/26/17 03:00 07/26/17 02:59 Methylprednisolone Sodium Succinate (Solu-MEDROL) 60 mg EVERY 12 HOURS IV 06/27/17 21:00 07/26/17 00:00 Morphine Sulfate (Morphine Sulfate) 2 mg Q4H PRN IVP severe pain 7-10 06/25/17 18:30 07/02/17 18:29 Nitroglycerin (Ntg) 0.4 mg Q5M X 3 DOSES PRN SL Prn Chest Pain 06/25/17 18:30 07/25/17 18:29 Ondansetron HCl (Zofran) 4 mg Q6H PRN IVP Nausea & Vomiting 06/25/17 18:30 07/25/17 18:29 Oseltamivir Phosphate (Tamiflu) 30 mg Q12HR ORAL 06/26/17 21:00 07/01/17 23:59 06/27/17 08:16 Piperacillin Sod/ Tazobactam Sod 3.375 gm/Sodium Chloride 110 ml @ 27.5 mls/hr EVERY 8 HOURS IVPB 06/25/17 20:00 06/30/17 19:59 06/27/17 14:35 Promethazine HCl/ Codeine (Phenergan with Codeine) 5 ml Q6H PRN ORAL cough 06/25/17 18:30 07/25/17 18:29 06/27/17 14:46 Temazepam (Restoril) 15 mg HSPRN PRN ORAL Insomnia 06/25/17 21:00 07/02/17 20:59 Theophylline (Claude-Dur) 100 mg EVERY 12 HOURS ORAL 06/25/17 21:00 07/25/17 20:59 06/27/17 08:17 Allergies: Coded Allergies: ASPIRIN (Verified Allergy, Intermediate, 06/25/17) All Systems: reviewed and negative except above - on 3L O2; some SOB today ; coughing Objective Last Vital Signs Date Time Temp Pulse Resp B/P (MAP) Pulse Ox O2 Delivery O2 Flow Rate FiO2 06/27/17 13:17 82 18 100 Nasal Cannula 3.0 32 06/27/17 12:00 96.1 133/61 General Appearance: no apparent distress, alert Neck: normal alignment, supple Cardiovascular: normal rate, regular rhythm Respiratory/Chest: chest wall non-tender, expiratory wheezing Abdomen: soft, no organomegaly, no mass Extremities: normal range of motion, non-tender Edema: trace edema Skin: normal pigmentation, warm/dry Laboratory Tests Test 06/27/17 03:50 06/27/17 13:15 White Blood Count 8.2 K/UL (4.8-10.8) Red Blood Count 3.40 M/UL (4.20-5.40) L Hemoglobin 11.0 G/DL (12.0-16.0) L Hematocrit 32.1 % (37.0-47.0) L Mean Corpuscular Volume 94 FL (80-99) Mean Corpuscular Hemoglobin 32.3 PG (27.0-31.0) H Mean Corpuscular Hemoglobin Concent 34.2 G/DL (32.0-36.0) Red Cell Distribution Width 13.2 % (11.6-14.8) Platelet Count 190 K/UL (150-450) Mean Platelet Volume 7.9 FL (6.5-10.1) Neutrophils (%) (Auto) 77.0 % (45.0-75.0) H Lymphocytes (%) (Auto) 15.2 % (20.0-45.0) L Monocytes (%) (Auto) 7.4 % (1.0-10.0) Eosinophils (%) (Auto) 0.0 % (0.0-3.0) Basophils (%) (Auto) 0.4 % (0.0-2.0) Sodium Level 137 MMOL/L (136-145) Potassium Level 3.1 MMOL/L (3.5-5.1) L Chloride Level 102 MMOL/L (98-107) Carbon Dioxide Level 28 MMOL/L (21-32) Anion Gap 9 mmol/L (5-15) Blood Urea Nitrogen 18 mg/dL (7-18) Creatinine 1.4 MG/DL (0.55-1.30) H Estimat Glomerular Filtration Rate mL/min (>60) Glucose Level 262 MG/DL (74-106) #H Calcium Level 8.4 MG/DL (8.5-10.1) L Total Bilirubin 0.3 MG/DL (0.2-1.0) Aspartate Amino Transf (AST/SGOT) 12 U/L (15-37) L Alanine Aminotransferase (ALT/SGPT) 13 U/L (12-78) Alkaline Phosphatase 62 U/L (46-116) Pro-B-Type Natriuretic Peptide 695 pg/mL (0-125) H Total Protein 6.7 G/DL (6.4-8.2) Albumin 2.7 G/DL (3.4-5.0) L Globulin 4.0 g/dL Albumin/Globulin Ratio 0.7 (1.0-2.7) L Urine Color Pale yellow Urine Appearance Clear Urine pH 5 (4.5-8.0) Urine Specific [place] 1.015 (1.005-1.035) Urine Protein Negative (NEGATIVE) Urine Glucose (UA) 2+ (NEGATIVE) H Urine Ketones Negative (NEGATIVE) Urine Occult Blood 2+ (NEGATIVE) H Urine Nitrite Negative (NEGATIVE) Urine Bilirubin Negative (NEGATIVE) Urine Urobilinogen Normal MG/DL (0.0-1.0) Urine Leukocyte Esterase 1+ (NEGATIVE) H Urine RBC 2-4 /HPF (0 - 2) H Urine WBC 2-4 /HPF (0 - 2) Urine Squamous Epithelial Cells Few /LPF (NONE/OCC) Urine Bacteria Occasional /HPF (NONE) Urine Yeast Few /HPF (NONE) H Microbiology Date/Time Source Procedure Growth Status 06/25/17 16:20 Blood Blood Culture - Preliminary Resulted 06/25/17 16:20 Blood Blood Culture - Preliminary NO GROWTH AFTER 24 HOURS Resulted 06/26/17 06:00 Sputum Gram Stain - Final Resulted 06/26/17 06:00 Sputum Sputum Culture - Preliminary NORMAL UPPER RESPIRATORY PEACE AT 24 ... Resulted 06/25/17 20:00 Nasal Nares Influenza Types A,B Antigen (DOROTHY) - Final Complete Intake and Output 06/26/17 06/27/17 19:00 07:00 Intake Total 487.9 ml 270.0 ml Balance 487.9 ml 270.0 ml Intake Oral 360 ml 50 ml IV Total 127.9 ml 220.0 ml # Voids 3 2 # Bowel Movements 8 2 Assessment/Plan Assessment/Plan Problem List: 1. COPD Exacerbation - TERESA - BIPAP prn - Pulmonary consult - Solumedrol 60mg IV BID - Duoneb Q 6 ATC and prn - Tamiflu empirically despite negative flu screen - titrate off O2 ; - d/c planning for sunday; may need O2 2. htn -- controlled 3. h/o osteomyelitis HERIBERTO MEDINA M.D. Jun 27, 2017 15:48
[2017-06-27] MEDS ORDERED: Albuterol/Ipratropium 3ml neb HHN PRN (20:58)
[2017-06-27] MEDS ORDERED: Morphine Sulfate 2mg/ml Inj IVP PRN (20:59)
[2017-06-27] MEDS ORDERED: Milk of Magnesia 30ml Ud ORAL PRN (20:59)
[2017-06-27] MEDS ORDERED: LORazepam Inj 2mg/ml 1ml IV PRN (20:59)
[2017-06-27] MEDS ORDERED: Solu-MEDROL 125mg Inj IV SCH (21:00)
[2017-06-28] VITALS: BP 129/70
[2017-06-28] MEDS: Albuterol/Ipratropium 3ml neb HHN SCH ×5 (01:13→23:32)
[2017-06-28 04:00] VITALS: BP 135/79
[2017-06-28 08:00] VITALS: BP 142/64
--- NOTE | 2017-06-28 08:13 | Pulmonology Progress Note ---
Assessment/Plan Assessment/Plan ASSESSMENT Acute hypoxemic RF requiring BiPAP-resolved acute COPD exacerbation acute purulent bronchitis HTN PLAN OF CARE [facility] floor weaned from BiPAP O2 titrate to keep pulse ox above 93% Pulse ox on RA this am HHN ATN and prn , add CPT tid with HHN IV steroids and taper Continue with trial of theophylline Empiric abx a/tussive prn CXR in am DVT prophylaxis pain management empiric Tamiflu -despite negative influenza screen, (sensitivity of rapid test only about 60%) Sputum+ stewart, influenza screen negative bl cx + Diphtheroids - contaminant, repeat blood cx and UA ECHO with pEF 60-65% BP controlled still congested, wheezing, not ready for discharge yet need to check pulse ox on RA to determine need for home O2 case discussed and evaluated by supervising physician Subjective Allergies: Coded Allergies: ASPIRIN (Verified Allergy, Intermediate, 06/25/17) Subjective afebrile, wheezing, coughing, on O2 via NC, sat stable no chest pain, Objective Last 24 Hour Vital Signs Date Time Temp Pulse Resp B/P (MAP) Pulse Ox O2 Delivery O2 Flow Rate FiO2 06/28/17 08:06 32 06/28/17 08:06 95 20 99 Nasal Cannula 3.0 32 06/28/17 07:58 93 20 99 Nasal Cannula 3.0 32 06/28/17 04:00 Nasal Cannula 3.0 06/28/17 04:00 97.2 100 22 135/79 95 06/28/17 01:24 87 18 99 Nasal Cannula 3.0 32 06/28/17 01:24 32 06/28/17 01:13 84 20 98 Nasal Cannula 3.0 32 06/28/17 00:00 97.3 90 20 129/70 96 06/27/17 20:30 97.2 93 21 149/98 97 06/27/17 20:30 Nasal Cannula 3.0 06/27/17 20:29 99 18 99 Nasal Cannula 3.0 32 06/27/17 20:18 89 22 98 Nasal Cannula 3.0 32 06/27/17 20:18 32 06/27/17 19:45 97.3 94 22 125/88 98 Nasal Cannula 3.5 06/27/17 15:58 97.3 94 22 125/88 98 Nasal Cannula 3.5 06/27/17 15:28 100 06/27/17 13:17 82 18 100 Nasal Cannula 3.0 32 06/27/17 13:06 78 18 95 Nasal Cannula 3.0 32 06/27/17 13:06 32 06/27/17 12:00 96.1 86 22 133/61 96 Nasal Cannula 3.5 06/27/17 11:38 90 Intake and Output 06/27/17 06/28/17 19:00 07:00 Intake Total 442.5 ml Balance 442.5 ml Intake Oral 360 ml IV Total 82.5 ml # Voids 4 1 # Bowel Movements 1 General Appearance: other - A/A/O x 3 female in mild resp distress HEENT: normocephalic, atraumatic, anicteric, mucous membranes moist Respiratory/Chest: chest wall non-tender, no accessory muscle use, expiratory wheezing - bilateraly , diffused Abdomen: normal bowel sounds, soft, non tender, non distended Extremities: no edema Neurologic/Psychiatric: alert, oriented x 3, responsive Musculoskeletal: atrophy - BLE Microbiology Date/Time Source Procedure Growth Status 06/25/17 16:20 Blood Blood Culture - Preliminary Resulted 06/25/17 16:20 Blood Blood Culture - Preliminary NO GROWTH AFTER 48 HOURS Resulted 06/26/17 06:00 Sputum Gram Stain - Final Complete 06/26/17 06:00 Sputum Culture - Final [place] Albicans Usual Upper Respiratory [place] Complete 06/25/17 20:00 Nasal Nares Influenza Types A,B Antigen (DOROTHY) - Final Complete Laboratory Tests 06/27/17 13:15: Urine Color Pale yellow, Urine Appearance Clear, Urine pH 5, Urine Specific [place] 1.015, Urine Protein Negative, Urine Glucose (UA) 2+H, Urine Ketones Negative, Urine Occult Blood 2+H, Urine Nitrite Negative, Urine Bilirubin Negative, Urine Urobilinogen Normal, Urine Leukocyte Esterase 1+H, Urine RBC 2- 4H, Urine WBC 2-4, Urine Squamous Epithelial Cells Few, Urine Bacteria Occasional, Urine Yeast FewH Current Medications Medications (Trade) Dose Ordered Sig/Beto Route PRN Reason Start Time Stop Time Status Last Admin Dose Admin Acetaminophen (Tylenol) 650 mg Q4H PRN ORAL For Pain 06/27/17 20:57 07/26/17 20:56 Albuterol/ Ipratropium (Albuterol/ Ipratropium) 3 ml Q4H PRN HHN dyspnea 06/27/17 20:58 06/30/17 20:57 Albuterol/ Ipratropium (Albuterol/ Ipratropium) 3 ml Q6HRT HHN 06/28/17 01:00 07/01/17 13:29 06/28/17 07:58 Dextrose (Dextrose 50%) STAT PRN IV Hypoglycemia 06/27/17 20:57 07/27/17 20:56 Diphenhydramine HCl (Benadryl) 25 mg Q8H PRN ORAL Itching 06/27/17 20:58 07/27/17 20:57 Heparin Sodium (Porcine) (Heparin 5000 units/ml) 5,000 units EVERY 12 HOURS SUBQ 06/27/17 21:00 07/25/17 20:59 06/27/17 21:39 Lorazepam (Ativan 2mg/ml 1ml) 0.5 mg Q4H PRN IV For Anxiety 06/27/17 20:59 07/02/17 20:58 Magnesium Hydroxide (Mom) 30 ml Q24HRS PRN ORAL Constipation 06/27/17 20:59 07/27/17 20:58 Methylprednisolone Sodium Succinate (Solu-MEDROL) 60 mg EVERY 12 HOURS IV 06/27/17 21:00 07/26/17 00:00 06/27/17 21:39 Morphine Sulfate (Morphine Sulfate) 2 mg Q4H PRN IVP severe pain 7-10 06/27/17 20:59 07/02/17 20:58 Nitroglycerin (Ntg) 0.4 mg Q5M X 3 DOSES PRN SL Prn Chest Pain 06/27/17 20:59 07/25/17 20:58 Ondansetron HCl (Zofran) 4 mg Q6H PRN IVP Nausea & Vomiting 06/27/17 20:59 07/27/17 20:58 Oseltamivir Phosphate (Tamiflu) 30 mg Q12HR ORAL 06/27/17 21:00 07/01/17 23:59 06/27/17 21:38 Promethazine HCl/ Codeine (Phenergan with Codeine) 5 ml Q6H PRN ORAL cough 06/27/17 21:00 07/27/17 20:59 Temazepam (Restoril) 15 mg HSPRN PRN ORAL Insomnia 06/27/17 21:00 07/02/17 20:59 Theophylline (Claude-Dur) 100 mg EVERY 12 HOURS ORAL 06/27/17 21:00 07/25/17 20:59 06/27/17 21:37 Maurice ([facility])Gaby NP Jun 28, 2017 08:12
[2017-06-28] MEDS: Theophylline ER 100mg ORAL SCH ×2 (09:01→21:52)
[2017-06-28] MEDS: Solu-MEDROL 125mg Inj IV SCH ×2 (09:01→21:52)
[2017-06-28] MEDS: Heparin 5000 units/ml inj SUBQ SCH ×2 (09:03→21:56)
[2017-06-28 12:00] VITALS: BP 138/72
[2017-06-28] MEDS ORDERED: Albuterol/Ipratropium 3ml neb HHN PRN (12:05)
[2017-06-28 13:47] LABS: ANION GAP 11 mmol/L (5-15); BLOOD UREA NITROGEN 20 mg/dL (7-18); CALCIUM 8.8 MG/DL (8.5-10.1); CARBON DIOXIDE 23 MMOL/L (21-32); CHLORIDE 104 MMOL/L (98-107); CREATININE 1.3 MG/DL (0.55-1.30); POTASSIUM 3.7 MMOL/L (3.5-5.1); SODIUM 138 MMOL/L (136-145)
[2017-06-28 16:00] VITALS: BP 149/75
[2017-06-28 20:00] VITALS: BP 149/68
--- NOTE | 2017-06-28 23:45 | Internal Med Progress Note ---
Subjective Physician Name Heriberto Medina Attending Physician Heriberto Medina M.D. Current Medications Medications (Trade) Dose Ordered Sig/Beto Route PRN Reason Start Time Stop Time Status Last Admin Dose Admin Acetaminophen (Tylenol) 650 mg Q4H PRN ORAL For Pain 06/27/17 20:57 07/26/17 20:56 06/28/17 10:41 Albuterol/ Ipratropium (Albuterol/ Ipratropium) 3 ml Q4H PRN HHN dyspnea 06/28/17 12:05 07/01/17 12:04 Albuterol/ Ipratropium (Albuterol/ Ipratropium) 3 ml Q6HRT HHN 06/28/17 01:00 07/01/17 13:29 06/28/17 23:32 Dextrose (Dextrose 50%) STAT PRN IV Hypoglycemia 06/27/17 20:57 07/27/17 20:56 Diphenhydramine HCl (Benadryl) 25 mg Q8H PRN ORAL Itching 06/27/17 20:58 07/27/17 20:57 Heparin Sodium (Porcine) (Heparin 5000 units/ml) 5,000 units EVERY 12 HOURS SUBQ 06/27/17 21:00 07/25/17 20:59 06/28/17 21:56 Lorazepam (Ativan 2mg/ml 1ml) 0.5 mg Q4H PRN IV For Anxiety 06/27/17 20:59 07/02/17 20:58 Magnesium Hydroxide (Mom) 30 ml Q24HRS PRN ORAL Constipation 06/27/17 20:59 07/27/17 20:58 Methylprednisolone Sodium Succinate (Solu-MEDROL) 60 mg DAILY IV 06/29/17 09:00 07/26/17 00:00 Methylprednisolone Sodium Succinate (Solu-MEDROL) 60 mg EVERY 12 HOURS IV 06/27/17 21:00 06/29/17 08:59 06/28/17 21:52 Morphine Sulfate (Morphine Sulfate) 2 mg Q4H PRN IVP severe pain 7-10 06/27/17 20:59 07/02/17 20:58 Nitroglycerin (Ntg) 0.4 mg Q5M X 3 DOSES PRN SL Prn Chest Pain 06/27/17 20:59 07/25/17 20:58 Ondansetron HCl (Zofran) 4 mg Q6H PRN IVP Nausea & Vomiting 06/27/17 20:59 07/27/17 20:58 Oseltamivir Phosphate (Tamiflu) 30 mg Q12HR ORAL 06/27/17 21:00 07/01/17 23:59 06/28/17 21:53 Promethazine HCl/ Codeine (Phenergan with Codeine) 5 ml Q6H PRN ORAL cough 06/27/17 21:00 07/27/17 20:59 Temazepam (Restoril) 15 mg HSPRN PRN ORAL Insomnia 06/27/17 21:00 07/02/17 20:59 Theophylline (Claude-Dur) 100 mg EVERY 12 HOURS ORAL 06/27/17 21:00 07/25/17 20:59 06/28/17 21:52 Allergies: Coded Allergies: ASPIRIN (Verified Allergy, Intermediate, 06/25/17) Subjective on 3L O2 wheezing reports severe SOB 12 pt ROS neg except above positives Objective Last Vital Signs Date Time Temp Pulse Resp B/P (MAP) Pulse Ox O2 Delivery O2 Flow Rate FiO2 06/28/17 20:00 98.1 103 20 149/68 95 06/28/17 19:29 Nasal Cannula 2.0 28 Laboratory Tests Test 06/28/17 13:05 Sodium Level 138 MMOL/L (136-145) Potassium Level 3.7 MMOL/L (3.5-5.1) Chloride Level 104 MMOL/L (98-107) Carbon Dioxide Level 23 MMOL/L (21-32) Anion Gap 11 mmol/L (5-15) Blood Urea Nitrogen 20 mg/dL (7-18) H Creatinine 1.3 MG/DL (0.55-1.30) Estimat Glomerular Filtration Rate mL/min (>60) Glucose Level 167 MG/DL (74-106) H Hemoglobin A1c 7.0 % (4.3-6.0) H Calcium Level 8.8 MG/DL (8.5-10.1) Microbiology Date/Time Source Procedure Growth Status 06/26/17 06:00 Sputum Gram Stain - Final Complete 06/26/17 06:00 Sputum Culture - Final [place] Albicans Usual Upper Respiratory [place] Complete Intake and Output 06/27/17 06/28/17 19:00 07:00 Intake Total 442.5 ml Balance 442.5 ml Intake Oral 360 ml IV Total 82.5 ml # Voids 4 1 # Bowel Movements 1 Objective gen - NAD heent - NC/AT CVS - RRR/ Lungs - b/l epiratory wheezing Abd - NT/ ND Ext - No c/c/e Assessment/Plan Assessment/Plan Problem List: 1. COPD Exacerbation - TERESA - BIPAP prn - Pulmonary consult - Solumedrol 60mg IV BID - Duoneb Q 12 ATC and prn - Tamiflu empirically despite negative flu screen - titrate off O2 ; - patient has COPD exacerbation and requires hospitalization for steroids because of hypoxic respiratory distress. not stable for discharge 2. htn -- controlled 3. h/o osteomyelitis HERIBERTO MEDINA M.D. Jun 28, 2017 23:45
[2017-06-29] VITALS: BP 136/59
[2017-06-29 04:00] VITALS: BP 134/65
[2017-06-29 07:08] LABS: BASOPHILS % (AUTO) 0.9 % (0.0-2.0); EOSINOPHILS % (AUTO) 0.1 % (0.0-3.0); HEMATOCRIT 31.3 % (37.0-47.0); HEMOGLOBIN 10.7 G/DL (12.0-16.0); LYMPHOCYTES % (AUTO) 20.4 % (20.0-45.0); MEAN CORPUSCULAR VOLUME 95 FL (80-99); MONOCYTES % (AUTO) 10.2 % (1.0-10.0); NEUTROPHILS % (AUTO) 68.4 % (45.0-75.0); PLATELET COUNT 206 K/UL (150-450); RED BLOOD COUNT 3.29 M/UL (4.20-5.40); RED CELL DISTRIBUTION WIDTH 13.6 % (11.6-14.8); WHITE BLOOD COUNT 9.3 K/UL (4.8-10.8)
[2017-06-29] MEDS: Albuterol/Ipratropium 3ml neb HHN SCH ×3 (07:21→18:56)
[2017-06-29 07:29] LABS: ANION GAP 6 mmol/L (5-15); BLOOD UREA NITROGEN 20 mg/dL (7-18); CALCIUM 8.4 MG/DL (8.5-10.1); CARBON DIOXIDE 28 MMOL/L (21-32); CHLORIDE 106 MMOL/L (98-107); CREATININE 1.1 MG/DL (0.55-1.30); POTASSIUM 3.4 MMOL/L (3.5-5.1); SODIUM 140 MMOL/L (136-145)
[2017-06-29 08:00] VITALS: BP 147/75
--- NOTE | 2017-06-29 08:28 | Pulmonology Progress Note ---
Assessment/Plan Assessment/Plan ASSESSMENT Acute hypoxemic RF requiring BiPAP-resolved acute COPD exacerbation acute purulent bronchitis HTN PLAN OF CARE [place] floor weaned from BiPAP O2 titrate to keep pulse ox above 93% Pulse ox on RA this am HHN ATN and prn , add CPT tid with HHN IV steroids and taper Continue with trial of theophylline Empiric abx a/tussive prn CXR in am DVT prophylaxis pain management empiric Tamiflu -despite negative influenza screen, (sensitivity of rapid test only about 60%) Sputum+ stewart, influenza screen negative bl cx + Diphtheroids - contaminant, repeat blood cx and UA ECHO with pEF 60-65% BP controlled K-3.4, replaced pulse ox stable on RA no need for home O2 dc plan per PMD script provided for oral medrol dose pack and inhalers, case discussed and evaluated by supervising physician Subjective Allergies: Coded Allergies: ASPIRIN (Verified Allergy, Intermediate, 06/25/17) Subjective afebrile, feeling better, still some wheezing, coughing, no chest pain, pulse ox stable on RA Objective Last 24 Hour Vital Signs Date Time Temp Pulse Resp B/P (MAP) Pulse Ox O2 Delivery O2 Flow Rate FiO2 06/29/17 07:31 87 20 97 Nasal Cannula 2.0 28 06/29/17 07:23 84 20 96 Nasal Cannula 2.0 28 06/29/17 04:00 98.1 80 20 134/65 94 Nasal Cannula 06/29/17 00:03 90 20 94 Nasal Cannula 2.0 28 06/29/17 00:03 94 20 97 Nasal Cannula 2.0 28 06/29/17 00:00 97.9 96 20 136/59 95 06/28/17 20:00 98.1 103 20 149/68 95 06/28/17 19:29 95 20 96 Nasal Cannula 2.0 28 06/28/17 19:29 92 20 93 Nasal Cannula 2.0 28 06/28/17 18:00 95 Room Air 06/28/17 16:00 98.1 102 20 149/75 97 06/28/17 16:00 Nasal Cannula 2.0 06/28/17 13:05 32 06/28/17 13:05 96 20 99 Nasal Cannula 2.0 28 06/28/17 12:57 96 20 99 Nasal Cannula 3.0 32 06/28/17 12:00 97.5 84 20 138/72 98 2/15/18 12:00 Nasal Cannula 2.0 Intake and Output 06/28/17 06/29/17 19:00 07:00 Intake Total 480 ml 240 ml Balance 480 ml 240 ml Intake Oral 480 ml 240 ml # Voids 4 4 # Bowel Movements 4 Objective General Appearance: A/A/O x 3 female in mild resp distress HEENT: normocephalic, atraumatic, anicteric, mucous membranes moist Respiratory/Chest: chest wall non-tender, no accessory muscle use, isolated wheezes Abdomen: normal bowel sounds, soft, non tender, non distended Extremities: no edema Neurologic/Psychiatric: alert, oriented x 3, responsive Musculoskeletal: atrophy - BLE Microbiology Date/Time Source Procedure Growth Status 06/27/17 12:35 Blood Blood Culture - Preliminary NO GROWTH AFTER 24 HOURS Resulted 06/27/17 12:25 Blood Blood Culture - Preliminary NO GROWTH AFTER 24 HOURS Resulted 06/27/17 13:15 Urine,Clean Catch Urine Culture - Preliminary NO GROWTH Resulted Laboratory Tests 06/28/17 13:05: Sodium Level 138, Potassium Level 3.7, Chloride Level 104, Carbon Dioxide Level 23, Anion Gap 11, Blood Urea Nitrogen 20H, Creatinine 1.3, Estimat Glomerular Filtration Rate , Glucose Level 167H, Hemoglobin A1c 7.0H, Calcium Level 8.8 06/29/17 05:10: Sodium Level 140, Potassium Level 3.4L, Chloride Level 106, Carbon Dioxide Level 28, Anion Gap 6, Blood Urea Nitrogen 20H, Creatinine 1.1, Estimat Glomerular Filtration Rate , Glucose Level 128H, Calcium Level 8.4L, White Blood Count 9.3, Red Blood Count 3.29L, Hemoglobin 10.7L, Hematocrit 31.3L, Mean Corpuscular Volume 95, Mean Corpuscular Hemoglobin 32.3H, Mean Corpuscular Hemoglobin Concent 34.0, Red Cell Distribution Width 13.6, Platelet Count 206, Mean Platelet Volume 7.9, Neutrophils (%) (Auto) 68.4, Lymphocytes (%) (Auto) 20.4, Monocytes (%) (Auto) 10.2H, Eosinophils (%) (Auto) 0.1, Basophils (%) ( Auto) 0.9, Magnesium Level 2.2 Current Medications Medications (Trade) Dose Ordered Sig/Beto Route PRN Reason Start Time Stop Time Status Last Admin Dose Admin Acetaminophen (Tylenol) 650 mg Q4H PRN ORAL For Pain 06/27/17 20:57 07/26/17 20:56 06/28/17 10:41 Albuterol/ Ipratropium (Albuterol/ Ipratropium) 3 ml Q4H PRN HHN dyspnea 06/28/17 12:05 07/01/17 12:04 Albuterol/ Ipratropium (Albuterol/ Ipratropium) 3 ml Q6HRT HHN 06/28/17 01:00 07/01/17 13:29 06/29/17 07:21 Dextrose (Dextrose 50%) STAT PRN IV Hypoglycemia 06/27/17 20:57 07/27/17 20:56 Diphenhydramine HCl (Benadryl) 25 mg Q8H PRN ORAL Itching 06/27/17 20:58 07/27/17 20:57 Heparin Sodium (Porcine) (Heparin 5000 units/ml) 5,000 units EVERY 12 HOURS SUBQ 06/27/17 21:00 07/25/17 20:59 06/28/17 21:56 Lorazepam (Ativan 2mg/ml 1ml) 0.5 mg Q4H PRN IV For Anxiety 06/27/17 20:59 07/02/17 20:58 Magnesium Hydroxide (Mom) 30 ml Q24HRS PRN ORAL Constipation 06/27/17 20:59 07/27/17 20:58 Methylprednisolone Sodium Succinate (Solu-MEDROL) 60 mg DAILY IV 06/29/17 09:00 07/26/17 00:00 Methylprednisolone Sodium Succinate (Solu-MEDROL) 60 mg EVERY 12 HOURS IV 06/27/17 21:00 06/29/17 08:59 06/28/17 21:52 Morphine Sulfate (Morphine Sulfate) 2 mg Q4H PRN IVP severe pain 7-10 06/27/17 20:59 07/02/17 20:58 Nitroglycerin (Ntg) 0.4 mg Q5M X 3 DOSES PRN SL Prn Chest Pain 06/27/17 20:59 07/25/17 20:58 Ondansetron HCl (Zofran) 4 mg Q6H PRN IVP Nausea & Vomiting 06/27/17 20:59 07/27/17 20:58 Oseltamivir Phosphate (Tamiflu) 30 mg Q12HR ORAL 06/27/17 21:00 07/01/17 23:59 06/28/17 21:53 Promethazine HCl/ Codeine (Phenergan with Codeine) 5 ml Q6H PRN ORAL cough 06/27/17 21:00 07/27/17 20:59 Temazepam (Restoril) 15 mg HSPRN PRN ORAL Insomnia 06/27/17 21:00 07/02/17 20:59 Theophylline (Claude-Dur) 100 mg EVERY 12 HOURS ORAL 06/27/17 21:00 07/25/17 20:59 06/28/17 21:52 Maurice ([facility])Gaby NP Jun 29, 2017 08:28
[2017-06-29] MEDS: Theophylline ER 100mg ORAL SCH ×2 (08:54→20:14)
[2017-06-29] MEDS: Solu-MEDROL 125mg Inj IV SCH (08:55)
[2017-06-29] MEDS: Heparin 5000 units/ml inj SUBQ SCH ×2 (08:56→20:15)
[2017-06-29] MEDS: Promethazine/Codeine 5ml UD ORAL PRN ×3 (09:03→22:25)
--- NOTE | 2017-06-29 09:28 | Diagnostic Imaging Report ---
Indication: Shortness of breath Technique: One view of the chest Comparison: 06/27/2017 Findings: Bilateral basilar atelectatic changes versus scarring persists, stable. Lungs and pleural spaces are otherwise clear. The heart remains borderline enlarged. Impression: Unchanged, over 2 days, as described. No acute process
[2017-06-29] MEDS ORDERED: Morphine Sulfate 4mg/ml Inj IVP PRN (11:15)
[2017-06-29 12:00] VITALS: BP 132/72
[2017-06-29 16:00] VITALS: BP 151/77
[2017-06-29 20:00] VITALS: BP 134/68
[2017-06-30] VITALS: BP 130/72
[2017-06-30] MEDS: Albuterol/Ipratropium 3ml neb HHN SCH ×4 (01:19→19:00)
[2017-06-30 04:00] VITALS: BP 134/78
[2017-06-30 08:15] VITALS: BP 133/69
[2017-06-30] MEDS: Solu-MEDROL 125mg Inj IV SCH ×3 (08:15→20:55)
[2017-06-30] MEDS: Theophylline ER 100mg ORAL SCH ×2 (08:15→20:53)
[2017-06-30] MEDS: Heparin 5000 units/ml inj SUBQ SCH ×2 (08:16→20:53)
[2017-06-30] MEDS: Promethazine/Codeine 5ml UD ORAL PRN (09:34)
[2017-06-30 12:00] VITALS: BP 130/81
--- NOTE | 2017-06-30 12:39 | Pulmonology Progress Note ---
Assessment/Plan Assessment/Plan ASSESSMENT Acute hypoxemic RF requiring BiPAP-resolved acute COPD exacerbation bronchospasm acute purulent bronchitis HTN PLAN OF CARE MS floor weaned from BiPAP O2 titrate to keep pulse ox above 93% Pulse ox on O2 via NC HHN ATN and prn , add CPT tid with HHN IV steroids increase frequency Continue with trial of theophylline Empiric abx a/tussive prn +Tessalon CXR in am DVT prophylaxis pain management empiric Tamiflu -despite negative influenza screen, (sensitivity of rapid test only about 60%) Sputum+ stewart, influenza screen negative bl cx + Diphtheroids - contaminant, repeat blood cx and UA ECHO with pEF 60-65% BP controlled not ready for dc today dc plan per PMD case discussed and evaluated by supervising physician Subjective Allergies: Coded Allergies: ASPIRIN (Verified Allergy, Intermediate, 06/25/17) Subjective afebrile, wheezing, + SOB, congestion, coughing, worse on O2 via NC, with intermittent SOB no chest pain Objective Last 24 Hour Vital Signs Date Time Temp Pulse Resp B/P (MAP) Pulse Ox O2 Delivery O2 Flow Rate FiO2 06/30/17 08:15 97.9 88 21 133/69 95 Nasal Cannula 2.0 06/30/17 07:20 71 20 93 Room Air 06/30/17 07:13 71 18 Room Air 21 06/30/17 07:12 71 18 91 Room Air 21 06/30/17 04:00 97.8 88 18 134/78 98 Nasal Cannula 2.0 06/30/17 01:38 88 18 95 Room Air 21 06/30/17 01:19 21 06/30/17 01:18 88 18 95 Room Air 21 06/30/17 00:00 97.0 90 18 130/72 96 Room Air 06/29/17 20:00 97.9 91 18 134/68 95 Room Air 06/29/17 19:01 95 20 95 Room Air 21 06/29/17 19:00 95 20 Room Air 21 06/29/17 18:55 21 06/29/17 18:54 95 20 95 Room Air 21 06/29/17 16:00 97.9 95 20 151/77 95 Room Air 06/29/17 12:51 77 20 96 Room Air 21 06/29/17 12:47 76 20 93 Room Air 21 Intake and Output 06/29/17 06/30/17 19:00 07:00 Intake Total 1160 ml 200 ml Balance 1160 ml 200 ml Intake Oral 1160 ml 200 ml # Voids 2 1 # Bowel Movements 2 Objective General Appearance: A/A/O x 3 female in mild resp distress HEENT: normocephalic, atraumatic, anicteric, mucous membranes moist Respiratory/Chest: chest wall non-tender, use of intercostal/ accessory muscle for breathing ; diffused wheezes Abdomen: normal bowel sounds, soft, non tender, non distended Extremities: no edema Neurologic/Psychiatric: alert, oriented x 3, responsive Musculoskeletal: atrophy - BLE Microbiology Date/Time Source Procedure Growth Status 06/27/17 13:15 Urine,Clean Catch Urine Culture - Final NO GROWTH AFTER 48 HOURS Complete Current Medications Medications (Trade) Dose Ordered Sig/Beto Route PRN Reason Start Time Stop Time Status Last Admin Dose Admin Acetaminophen (Tylenol) 650 mg Q4H PRN ORAL For Pain 06/27/17 20:57 07/26/17 20:56 06/28/17 10:41 Albuterol/ Ipratropium (Albuterol/ Ipratropium) 3 ml Q4H PRN HHN dyspnea 06/28/17 12:05 07/01/17 12:04 Albuterol/ Ipratropium (Albuterol/ Ipratropium) 3 ml Q6HRT HHN 06/28/17 01:00 07/01/17 13:29 06/30/17 07:12 Dextrose (Dextrose 50%) STAT PRN IV Hypoglycemia 06/27/17 20:57 07/27/17 20:56 Diphenhydramine HCl (Benadryl) 25 mg Q8H PRN ORAL Itching 06/27/17 20:58 07/27/17 20:57 Heparin Sodium (Porcine) (Heparin 5000 units/ml) 5,000 units EVERY 12 HOURS SUBQ 06/27/17 21:00 07/25/17 20:59 06/29/17 20:15 Lorazepam (Ativan 2mg/ml 1ml) 0.5 mg Q4H PRN IV For Anxiety 06/27/17 20:59 07/02/17 20:58 Magnesium Hydroxide (Mom) 30 ml Q24HRS PRN ORAL Constipation 06/27/17 20:59 07/27/17 20:58 Methylprednisolone Sodium Succinate (Solu-MEDROL) 60 mg DAILY IV 06/29/17 09:00 07/26/17 00:00 06/30/17 08:15 Morphine Sulfate (Morphine Sulfate) 2 mg Q4H PRN IVP severe pain 7-10 06/29/17 11:15 07/02/17 20:58 Nitroglycerin (Ntg) 0.4 mg Q5M X 3 DOSES PRN SL Prn Chest Pain 06/27/17 20:59 07/25/17 20:58 Ondansetron HCl (Zofran) 4 mg Q6H PRN IVP Nausea & Vomiting 06/27/17 20:59 07/27/17 20:58 06/30/17 01:48 Oseltamivir Phosphate (Tamiflu) 30 mg Q12HR ORAL 06/27/17 21:00 06/30/17 23:59 06/30/17 08:15 Promethazine HCl/ Codeine (Phenergan with Codeine) 5 ml Q6H PRN ORAL cough 06/27/17 21:00 07/27/17 20:59 06/30/17 09:34 Temazepam (Restoril) 15 mg HSPRN PRN ORAL Insomnia 06/27/17 21:00 07/02/17 20:59 Theophylline (Claude-Dur) 100 mg EVERY 12 HOURS ORAL 06/27/17 21:00 07/25/17 20:59 06/30/17 08:15 [facility] Jun 30, 2017 12:39
[2017-06-30] MEDS ORDERED: LORazepam Inj 2mg/ml 1ml IV PRN (12:59)
--- NOTE | 2017-06-30 14:17 | General Progress Note ---
Assessment/Plan Problem List: (1) Acute respiratory failure ICD Codes: J96.00 - Acute respiratory failure, unspecified whether with hypoxia or hypercapnia SNOMED: 69192386 (2) COPD with exacerbation ICD Codes: J44.1 - Chronic obstructive pulmonary disease with (acute) exacerbation SNOMED: 579603546 Assessment/Plan Bronchodilators IV steroids pulm following Subjective Allergies: Coded Allergies: ASPIRIN (Verified Allergy, Intermediate, 06/25/17) Subjective feels sick Objective Last 24 Hour Vital Signs Date Time Temp Pulse Resp B/P (MAP) Pulse Ox O2 Delivery O2 Flow Rate FiO2 06/30/17 12:58 89 18 93 Room Air 06/30/17 12:46 89 18 92 Room Air 21 06/30/17 12:00 97.9 81 20 130/81 95 Nasal Cannula 2.0 06/30/17 08:15 97.9 88 21 133/69 95 Nasal Cannula 2.0 06/30/17 07:20 71 20 93 Room Air 06/30/17 07:13 71 18 Room Air 21 06/30/17 07:12 71 18 91 Room Air 21 06/30/17 04:00 97.8 88 18 134/78 98 Nasal Cannula 2.0 06/30/17 01:38 88 18 95 Room Air 21 06/30/17 01:19 21 06/30/17 01:18 88 18 95 Room Air 21 06/30/17 00:00 97.0 90 18 130/72 96 Room Air 06/29/17 20:00 97.9 91 18 134/68 95 Room Air 06/29/17 19:01 95 20 95 Room Air 21 06/29/17 19:00 95 20 Room Air 21 06/29/17 18:55 21 06/29/17 18:54 95 20 95 Room Air 21 06/29/17 16:00 97.9 95 20 151/77 95 Room Air Intake and Output 06/29/17 06/30/17 19:00 07:00 Intake Total 1160 ml 200 ml Balance 1160 ml 200 ml Intake Oral 1160 ml 200 ml # Voids 2 1 # Bowel Movements 2 Height (Feet): 5 Height (Inches): 2.90 Weight (Pounds): 160 Cardiovascular: normal rate Respiratory/Chest: expiratory wheezing Edema: no edema noted VIVIAN Chambers Jun 30, 2017 14:17
[2017-06-30] MEDS ORDERED: Morphine Sulfate 4mg/ml Inj IVP PRN (15:15)
[2017-06-30] MEDS ORDERED: Albuterol/Ipratropium 3ml neb HHN PRN (16:05)
[2017-06-30 16:15] VITALS: BP 148/80
[2017-06-30 20:00] VITALS: BP 151/77
[2017-06-30] MEDS: Nitroglycerin Subl 0.4mg tab SL PRN ×2 (20:52→20:58)
[2017-07-01] VITALS: BP 147/75
[2017-07-01] MEDS: Albuterol/Ipratropium 3ml neb HHN SCH ×5 (00:47→23:46)
[2017-07-01 04:00] VITALS: BP 147/71
[2017-07-01 05:52] LABS: BASOPHILS % (AUTO) 0.7 % (0.0-2.0); HEMATOCRIT 32.9 % (37.0-47.0); HEMOGLOBIN 11.2 G/DL (12.0-16.0); LYMPHOCYTES % (AUTO) 12.9 % (20.0-45.0); MEAN CORPUSCULAR VOLUME 95 FL (80-99); MONOCYTES % (AUTO) 4.3 % (1.0-10.0); NEUTROPHILS % (AUTO) 82.2 % (45.0-75.0); PLATELET COUNT 210 K/UL (150-450); RED BLOOD COUNT 3.47 M/UL (4.20-5.40); RED CELL DISTRIBUTION WIDTH 12.9 % (11.6-14.8); WHITE BLOOD COUNT 8.4 K/UL (4.8-10.8)
[2017-07-01] MEDS: Solu-MEDROL 125mg Inj IV SCH ×2 (06:13→21:13)
[2017-07-01 06:18] LABS: ANION GAP 7 mmol/L (5-15); BLOOD UREA NITROGEN 18 mg/dL (7-18); CALCIUM 8.2 MG/DL (8.5-10.1); CARBON DIOXIDE 27 MMOL/L (21-32); CHLORIDE 103 MMOL/L (98-107); POTASSIUM 4.2 MMOL/L (3.5-5.1); SODIUM 137 MMOL/L (136-145)
[2017-07-01 08:00] VITALS: BP 119/74
[2017-07-01] MEDS: Theophylline ER 100mg ORAL SCH ×2 (08:15→21:13)
[2017-07-01] MEDS: Heparin 5000 units/ml inj SUBQ SCH ×2 (08:16→21:15)
--- NOTE | 2017-07-01 11:11 | General Progress Note ---
Assessment/Plan Problem List: (1) Acute respiratory failure ICD Codes: J96.00 - Acute respiratory failure, unspecified whether with hypoxia or hypercapnia SNOMED: 96873423 (2) COPD with exacerbation ICD Codes: J44.1 - Chronic obstructive pulmonary disease with (acute) exacerbation SNOMED: 990780736 Assessment/Plan Bronchodilators IV steroids monitor in telemetry Subjective Allergies: Coded Allergies: ASPIRIN (Verified Allergy, Intermediate, 06/25/17) Subjective pt was transferred to telemetry for CP feels better now Objective Last 24 Hour Vital Signs Date Time Temp Pulse Resp B/P (MAP) Pulse Ox O2 Delivery O2 Flow Rate FiO2 07/01/17 08:00 97.3 86 18 119/74 97 07/01/17 07:59 68 18 98 Nasal Cannula 2.0 28 07/01/17 07:55 97 Nasal Cannula 2.0 28 07/01/17 07:55 65 18 97 Nasal Cannula 2.0 28 07/01/17 07:55 Nasal Cannula 2.0 28 07/01/17 04:00 97.2 75 20 147/71 94 07/01/17 00:59 84 18 97 Room Air 07/01/17 00:51 79 18 95 Room Air 21 07/01/17 00:00 98.5 71 20 147/75 94 06/30/17 20:58 149/76 06/30/17 20:52 151/77 06/30/17 20:00 97.2 89 19 151/77 96 06/30/17 18:45 Room Air 21 06/30/17 18:45 Room Air 21 06/30/17 18:03 85 18 98 Nasal Cannula 2.0 28 06/30/17 17:57 95 Nasal Cannula 2.0 28 06/30/17 17:57 Nasal Cannula 2.0 28 06/30/17 17:52 82 20 95 Nasal Cannula 2.0 28 06/30/17 16:15 98.0 86 23 148/80 95 Room Air 06/30/17 12:58 89 18 93 Room Air 06/30/17 12:46 89 18 92 Room Air 21 06/30/17 12:00 97.9 81 20 130/81 95 Nasal Cannula 2.0 Intake and Output 06/30/17 07/01/17 18:59 06:59 Intake Total 300 ml Balance 300 ml Intake Oral 300 ml # Voids 3 2 # Bowel Movements 3 Laboratory Tests 07/01/17 05:05: White Blood Count 8.4, Red Blood Count 3.47L, Hemoglobin 11.2L, Hematocrit 32.9L , Mean Corpuscular Volume 95, Mean Corpuscular Hemoglobin 32.3H, Mean Corpuscular Hemoglobin Concent 34.1, Red Cell Distribution Width 12.9, Platelet Count 210, Mean Platelet Volume 7.0, Neutrophils (%) (Auto) 82.2H, Lymphocytes ( %) (Auto) 12.9L, Monocytes (%) (Auto) 4.3, Eosinophils (%) (Auto) 0.0, Basophils (%) (Auto) 0.7, Sodium Level 137, Potassium Level 4.2, Chloride Level 103, Carbon Dioxide Level 27, Anion Gap 7, Blood Urea Nitrogen 18, Creatinine 1.0, Estimat Glomerular Filtration Rate , Glucose Level 178H, Calcium Level 8.2L , Troponin I 0.019 Height (Feet): 5 Height (Inches): 2.90 Weight (Pounds): 160 Cardiovascular: normal rate Respiratory/Chest: expiratory wheezing - bilat Edema: no edema noted VIVIAN Chambers Jul 01, 2017 11:11
[2017-07-01 12:00] VITALS: BP 131/63
--- NOTE | 2017-07-01 12:11 | Pulmonology Progress Note ---
Assessment/Plan Assessment/Plan ASSESSMENT Acute hypoxemic RF requiring BiPAP-resolved acute COPD exacerbation bronchospasm acute purulent bronchitis HTN chest pain /epigastric pain PLAN OF CARE transferred to tele weaned from BiPAP O2 titrate to keep pulse ox above 93% Pulse ox on O2 via NC HHN ATN and prn , and CPT tid with HHN IV steroids i, taper down , clincially improved resp status from yesterday Continue with trial of theophylline Empiric abx a/tussive prn +Tessalon fup with CXR cardio eval first troponin negative ECG no acute ischemic changes no cardiac complaints now ? epigastric pain ? due to acute COPD exacerbation vs? anxiety further management as per cardio ECHO done initially with pEF no significant cardiac history DVT prophylaxis pain management empiric Tamiflu -despite negative influenza screen, (sensitivity of rapid test only about 60%) Sputum+ stewart, influenza screen negative bl cx + Diphtheroids - contaminant, repeated blood cx prel negative, and UA negative ECHO with pEF 60-65% BP controlled case discussed and evaluated by supervising physician Subjective Allergies: Coded Allergies: ASPIRIN (Verified Allergy, Intermediate, 06/25/17) Subjective transferred to tele due t c/o chest pain c/o chest pain, while asking to point where the pain is, more like epigastric abd pain afebrile, on O2 via NC, with intermittent SOB resp status with improvement Objective Last 24 Hour Vital Signs Date Time Temp Pulse Resp B/P (MAP) Pulse Ox O2 Delivery O2 Flow Rate FiO2 07/01/17 08:00 97.3 86 18 119/74 97 07/01/17 07:59 68 18 98 Nasal Cannula 2.0 28 07/01/17 07:55 97 Nasal Cannula 2.0 28 07/01/17 07:55 65 18 97 Nasal Cannula 2.0 28 07/01/17 07:55 Nasal Cannula 2.0 28 07/01/17 04:00 97.2 75 20 147/71 94 07/01/17 00:59 84 18 97 Room Air 07/01/17 00:51 79 18 95 Room Air 21 07/01/17 00:00 98.5 71 20 147/75 94 06/30/17 20:58 149/76 06/30/17 20:52 151/77 06/30/17 20:00 97.2 89 19 151/77 96 06/30/17 18:45 Room Air 21 06/30/17 18:45 Room Air 21 06/30/17 18:03 85 18 98 Nasal Cannula 2.0 28 06/30/17 17:57 95 Nasal Cannula 2.0 28 06/30/17 17:57 Nasal Cannula 2.0 28 06/30/17 17:52 82 20 95 Nasal Cannula 2.0 28 06/30/17 16:15 98.0 86 23 148/80 95 Room Air 06/30/17 12:58 89 18 93 Room Air 06/30/17 12:46 89 18 92 Room Air 21 Intake and Output 06/30/17 07/01/17 19:00 07:00 Intake Total 300 ml Balance 300 ml Intake Oral 300 ml # Voids 3 2 # Bowel Movements 3 Objective General Appearance: A/A/O x 3 female in NAD HEENT: normocephalic, atraumatic, anicteric, mucous membranes moist Respiratory/Chest: chest wall non-tender, no use of intercostal/ accessory muscle for breathing ; few isolated exp wheezes posteriorly Heart:SR on tele, Abdomen: normal bowel sounds, soft, non tender, non distended Extremities: no edema Neurologic/Psychiatric: alert, oriented x 3, responsive Musculoskeletal: atrophy - BLE Laboratory Tests 07/01/17 05:05: White Blood Count 8.4, Red Blood Count 3.47L, Hemoglobin 11.2L, Hematocrit 32.9L , Mean Corpuscular Volume 95, Mean Corpuscular Hemoglobin 32.3H, Mean Corpuscular Hemoglobin Concent 34.1, Red Cell Distribution Width 12.9, Platelet Count 210, Mean Platelet Volume 7.0, Neutrophils (%) (Auto) 82.2H, Lymphocytes ( %) (Auto) 12.9L, Monocytes (%) (Auto) 4.3, Eosinophils (%) (Auto) 0.0, Basophils (%) (Auto) 0.7, Sodium Level 137, Potassium Level 4.2, Chloride Level 103, Carbon Dioxide Level 27, Anion Gap 7, Blood Urea Nitrogen 18, Creatinine 1.0, Estimat Glomerular Filtration Rate , Glucose Level 178H, Calcium Level 8.2L , Troponin I 0.019 Current Medications Medications (Trade) Dose Ordered Sig/Beto Route PRN Reason Start Time Stop Time Status Last Admin Dose Admin Acetaminophen (Tylenol) 650 mg Q4H PRN ORAL For Pain 06/27/17 20:57 07/26/17 20:56 06/30/17 15:39 Albuterol/ Ipratropium (Albuterol/ Ipratropium) 3 ml Q4H PRN HHN dyspnea 06/30/17 16:05 07/03/17 23:59 06/30/17 17:51 Albuterol/ Ipratropium (Albuterol/ Ipratropium) 3 ml Q6HRT HHN 06/30/17 13:00 07/03/17 23:59 07/01/17 08:03 Dextrose (Dextrose 50%) STAT PRN IV Hypoglycemia 06/27/17 20:57 07/27/17 20:56 Diphenhydramine HCl (Benadryl) 25 mg Q8H PRN ORAL Itching 06/27/17 20:58 07/27/17 20:57 Heparin Sodium (Porcine) (Heparin 5000 units/ml) 5,000 units EVERY 12 HOURS SUBQ 06/27/17 21:00 07/25/17 20:59 07/01/17 08:16 Lorazepam (Ativan 2mg/ml 1ml) 0.5 mg Q4H PRN IV For Anxiety 06/30/17 12:59 07/05/17 23:59 Magnesium Hydroxide (Mom) 30 ml Q24HRS PRN ORAL Constipation 06/27/17 20:59 07/27/17 20:58 Methylprednisolone Sodium Succinate (Solu-MEDROL) 60 mg Q8HR IV 06/30/17 14:00 07/26/17 00:00 07/01/17 06:13 Morphine Sulfate (Morphine Sulfate) 2 mg Q4H PRN IVP severe pain 7-10 06/30/17 15:15 07/03/17 23:59 Nitroglycerin (Ntg) 0.4 mg Q5M X 3 DOSES PRN SL Prn Chest Pain 06/27/17 20:59 07/25/17 20:58 06/30/17 20:58 Ondansetron HCl (Zofran) 4 mg Q6H PRN IVP Nausea & Vomiting 06/27/17 20:59 07/27/17 20:58 06/30/17 01:48 Promethazine HCl/ Codeine (Phenergan with Codeine) 5 ml Q6H PRN ORAL cough 06/27/17 21:00 07/27/17 20:59 06/30/17 09:34 Temazepam (Restoril) 15 mg HSPRN PRN ORAL Insomnia 06/30/17 12:45 07/05/17 23:59 Theophylline (Claude-Dur) 100 mg EVERY 12 HOURS ORAL 06/27/17 21:00 07/25/17 20:59 07/01/17 08:15 Maurice ([facility])Gaby NP Jul 01, 2017 12:11
[2017-07-01] MEDS ORDERED: Nitroglycerin Subl 0.4mg tab SL PRN (12:30)
[2017-07-01] MEDS ORDERED: LORazepam Inj 2mg/ml 1ml IV PRN (12:32)
[2017-07-01] MEDS ORDERED: Albuterol/Ipratropium 3ml neb HHN PRN (12:32)
[2017-07-01] MEDS ORDERED: Milk of Magnesia 30ml Ud ORAL PRN (12:33)
[2017-07-01] MEDS ORDERED: Morphine Sulfate 4mg/ml Inj IVP PRN (12:33)
--- NOTE | 2017-07-01 13:11 | Cardiology Progress Note ---
Assessment/Plan Assessment/Plan [id number] bronchospasm, repat trop and ekg ecotrin limited dose for nwo ntp Objective Last 24 Hour Vital Signs Date Time Temp Pulse Resp B/P (MAP) Pulse Ox O2 Delivery O2 Flow Rate FiO2 07/01/17 12:16 76 18 99 Nasal Cannula 2.0 28 07/01/17 12:13 75 18 98 Nasal Cannula 2.0 28 07/01/17 12:00 96.4 76 20 131/63 97 07/01/17 08:00 97.3 86 18 119/74 97 07/01/17 07:59 68 18 98 Nasal Cannula 2.0 28 07/01/17 07:55 97 Nasal Cannula 2.0 28 07/01/17 07:55 65 18 97 Nasal Cannula 2.0 28 07/01/17 07:55 Nasal Cannula 2.0 28 07/01/17 04:00 97.2 75 20 147/71 94 07/01/17 00:59 84 18 97 Room Air 07/01/17 00:51 79 18 95 Room Air 21 07/01/17 00:00 98.5 71 20 147/75 94 06/30/17 20:58 149/76 06/30/17 20:52 151/77 06/30/17 20:00 97.2 89 19 151/77 96 06/30/17 18:45 Room Air 21 06/30/17 18:45 Room Air 21 06/30/17 18:03 85 18 98 Nasal Cannula 2.0 28 06/30/17 17:57 95 Nasal Cannula 2.0 28 06/30/17 17:57 Nasal Cannula 2.0 28 06/30/17 17:52 82 20 95 Nasal Cannula 2.0 28 06/30/17 16:15 98.0 86 23 148/80 95 Room Air Intake and Output 06/30/17 07/01/17 19:00 07:00 Intake Total 300 ml Balance 300 ml Intake Oral 300 ml # Voids 3 2 # Bowel Movements 3 Laboratory Tests Test 07/01/17 05:05 White Blood Count 8.4 K/UL (4.8-10.8) Red Blood Count 3.47 M/UL (4.20-5.40) L Hemoglobin 11.2 G/DL (12.0-16.0) L Hematocrit 32.9 % (37.0-47.0) L Mean Corpuscular Volume 95 FL (80-99) Mean Corpuscular Hemoglobin 32.3 PG (27.0-31.0) H Mean Corpuscular Hemoglobin Concent 34.1 G/DL (32.0-36.0) Red Cell Distribution Width 12.9 % (11.6-14.8) Platelet Count 210 K/UL (150-450) Mean Platelet Volume 7.0 FL (6.5-10.1) Neutrophils (%) (Auto) 82.2 % (45.0-75.0) H Lymphocytes (%) (Auto) 12.9 % (20.0-45.0) L Monocytes (%) (Auto) 4.3 % (1.0-10.0) Eosinophils (%) (Auto) 0.0 % (0.0-3.0) Basophils (%) (Auto) 0.7 % (0.0-2.0) Sodium Level 137 MMOL/L (136-145) Potassium Level 4.2 MMOL/L (3.5-5.1) Chloride Level 103 MMOL/L (98-107) Carbon Dioxide Level 27 MMOL/L (21-32) Anion Gap 7 mmol/L (5-15) Blood Urea Nitrogen 18 mg/dL (7-18) Creatinine 1.0 MG/DL (0.55-1.30) Estimat Glomerular Filtration Rate mL/min (>60) Glucose Level 178 MG/DL (74-106) H Calcium Level 8.2 MG/DL (8.5-10.1) L Troponin I 0.019 ng/mL (0.000-0.056) FIDEL CARDENAS Jul 01, 2017 13:11
[2017-07-01] MEDS: Promethazine/Codeine 5ml UD ORAL PRN ×2 (13:51→21:23)
[2017-07-01 16:00] VITALS: BP 141/71
[2017-07-01 20:00] VITALS: BP 155/75
--- NOTE | 2017-07-01 20:32 | Consultation ---
DATE OF CONSULTATION: 07/01/2015 CARDIOLOGY CONSULTATION CONSULTING PHYSICIAN: Derick Espinosa M.D. REFERRING PHYSICIAN: Tj Cortes M.D. REASON FOR EVALUATION: Chest pain. HISTORY OF PRESENT ILLNESS: This is an 82-year-old female who has been admitted to the hospital here at [facility] assisted living situation because of difficulty breathing. In either case, she has been here for the past few days. This morning around 1 o'clock, she started having some pain in the chest. She has indicated that she was vomiting last night. Anyway, she had some pain in the center of her chest and this lasted approximately 30 minutes. This was described as a severe pain and pressure pain as what she described. Eventually, she was given some nitroglycerin and the pain eventually resolved, has not had this pain previously. She has had minor amounts of the pain, but not severe enough to last very long, she says, since this morning. There is no PND. She does have some desire to have the head of bed elevation for some reason. She has occasional dizziness on standing. In fact, she has had problem with balance. No heart pounding or palpitations. She does have shortness of breath. She has coughing and wheezing most recently as well. PAST MEDICAL HISTORY: Negative for diabetes. Negative for high blood pressure. Negative for high cholesterol. No history of heart attack. No cancer. No stroke. No hepatitis. No tuberculosis. No history of asthma. Does have history of peptic ulcer disease with bleeding many years ago. No kidney problems, liver problems, or thyroid problems. She has history of arthritis. No blood clots or HIV anyway. SOCIAL HISTORY: She used to smoke, she quit that approximately 20 years ago. Does not drink. Does not use drugs. She resides in a [facility] and care facility. REVIEW OF SYSTEMS: GASTROINTESTINAL: As mentioned, she has had some vomiting. She has had some constipation. GENITOURINARY: Negative. PULMONARY: Positive cough and wheezing. CONSTITUTIONAL: No fevers or chills. NEUROLOGIC: Negative. She does have problems with balance when she stands up as she has to hold on things. PHYSICAL EXAMINATION: GENERAL: Shows a morbidly obese female, in no respiratory distress. NECK: Supple. No jugular venous distention. No abdominojugular reflux noted. LUNGS: Showing some evidence of wheezes bilaterally, inspiratory and expiratory. CHEST: Chest wall is tender to palpation. The patient seems to think that this is the similar pain that she had experienced last night. CARDIAC: Regular rate and rhythm. ABDOMEN: Soft, obese. Positive bowel sounds. EXTREMITIES: There is no edema. LABORATORY AND DIAGNOSTIC DATA: Duplex study of lower extremities is negative. Echocardiogram that was performed a few days ago was reported as showing ejection fraction of 60% to 65%. No significant valvular leakage and mild diastolic relaxation abnormality was noted. A chest x-ray that was performed on 06/29/2017 last shows bilateral basal atelectasis changes versus scarring, stable lung and pleural spaces. Her blood tests, white count of 8.4 with a hemoglobin of 11.2 and platelet count of 210. Sodium is 137, potassium 4.2, chloride 102, bicarbonate 27, BUN of 18, creatinine 1.0, glucose of 178, and calcium is 8.3. Troponin first set at 5 o'clock in the morning was 0.019. Her urinalysis, 2 to 4 WBCs and RBCs. Her urine during this hospitalization was negative. Blood culture so far negative. The patient's electrocardiogram performed on 06/25/2017 showed basically no significant abnormalities . ASSESSMENT AND PLAN: 1. Atypical chest pain. 2. Respiratory insufficiency. 3. Chronic obstructive pulmonary disease with exacerbation. 4. Bronchospasm. 5. Purulent bronchitis. 6. . The patient is being monitored on the telemetry unit. Repeat EKGs and cardiac enzymes will be ordered. Depending on the results of the findings, we will consider further workup as indicated. However, with the patient's bronchospasms, the workup at this time may be limited. Derick Espinosa M.D. DR: Jewel JOB#: [id number] CC:
[2017-07-01] MEDS ORDERED: Solu-MEDROL 125mg Inj IV SCH (21:00)
[2017-07-02] VITALS (7 sets, daily range): BP systolic 119–147; BP diastolic 60–76
[2017-07-02] MEDS: Albuterol/Ipratropium 3ml neb HHN SCH ×3 (07:58→19:44)
[2017-07-02] MEDS: Theophylline ER 100mg ORAL SCH ×2 (08:43→20:50)
[2017-07-02] MEDS: Heparin 5000 units/ml inj SUBQ SCH ×2 (08:55→20:54)
[2017-07-02] MEDS: Solu-MEDROL 125mg Inj IV SCH (08:55)
--- NOTE | 2017-07-02 10:55 | Pulmonology Progress Note ---
Assessment/Plan Assessment/Plan ASSESSMENT Acute hypoxemic RF requiring BiPAP-resolved acute COPD exacerbation bronchospasm acute purulent bronchitis HTN chest pain , ? atypical PLAN OF CARE tele weaned from BiPAP O2 titrate to keep pulse ox above 93% HHN ATN and prn , and CPT tid with HHN IV steroids , wont taper today down , clincially improved resp status from yesterday Continue with trial of theophylline Empiric abx a/tussive prn +Tessalon fup with CXR cardio eval appreciated serial troponin negative ECG no acute ischemic changes no cardiac complaints now ? epigastric pain ? due to acute COPD exacerbation vs? anxiety further management as per cardio ECHO done initially with pEF no significant cardiac history per cardio likely atypical CP and further workup is limited for now due to bronchospasm DVT prophylaxis pain management empiric Tamiflu -despite negative influenza screen, (sensitivity of rapid test only about 60%) Sputum+ stewart, influenza screen negative bl cx + Diphtheroids - contaminant, repeated blood cx prel negative, and UA negative ECHO with pEF 60-65% BP controlled case discussed and evaluated by supervising physician Subjective Allergies: Coded Allergies: ASPIRIN (Verified Allergy, Intermediate, 06/25/17) Subjective c/o intermittent chest pain, points to epigastric area cardio seen and evaluated afebrile, on O2 via NC, with intermittent SOB still wheezing ( was better yesterday but with tapering down of steroids , worse) Objective Last 24 Hour Vital Signs Date Time Temp Pulse Resp B/P (MAP) Pulse Ox O2 Delivery O2 Flow Rate FiO2 07/02/17 08:14 96.3 80 18 137/65 97 Nasal Cannula 2.0 07/02/17 08:09 84 20 97 Nasal Cannula 2.0 07/02/17 07:59 Nasal Cannula 2.0 07/02/17 07:59 84 20 97 Nasal Cannula 2.0 28 07/02/17 07:57 97 Nasal Cannula 2.0 28 07/02/17 04:00 79 07/02/17 04:00 98.0 81 20 119/60 96 07/02/17 00:00 97.1 78 22 141/75 97 07/02/17 00:00 86 07/01/17 23:53 72 18 98 Nasal Cannula 2.0 28 07/01/17 23:46 78 18 97 Nasal Cannula 2.0 28 07/01/17 20:00 82 07/01/17 20:00 98.1 80 22 155/75 97 07/01/17 19:40 69 18 99 Nasal Cannula 2.0 28 07/01/17 19:36 98 Nasal Cannula 2.0 28 07/01/17 19:36 Nasal Cannula 2.0 28 07/01/17 19:33 65 18 99 Nasal Cannula 2.0 28 07/01/17 17:47 145/80 07/01/17 16:00 97.5 71 20 141/71 96 07/01/17 16:00 88 07/01/17 12:16 76 18 99 Nasal Cannula 2.0 28 07/01/17 12:13 75 18 98 Nasal Cannula 2.0 28 07/01/17 12:00 96.4 76 20 131/63 97 07/01/17 12:00 77 07/01/17 12:00 77 Intake and Output 07/01/17 07/02/17 19:00 07:00 Intake Total 116 ml 236 ml Output Total 500 ml Balance 116 ml -264 ml Intake Oral 116 ml 236 ml Output Urine Total 500 ml # Voids 3 Objective General Appearance: A/A/O x 3 female in NAD HEENT: normocephalic, atraumatic, anicteric, mucous membranes moist Respiratory/Chest: chest wall non-tender, no use of intercostal/ accessory muscle for breathing ; some scttered exp wheezes Heart:SR on tele, Abdomen: normal bowel sounds, soft, non tender, non distended Extremities: no edema Neurologic/Psychiatric: alert, oriented x 3, responsive Musculoskeletal: atrophy - BLE Laboratory Tests 07/01/17 13:15: Troponin I 0.000 07/02/17 06:40: Troponin I 0.002, Pro-B-Type Natriuretic Peptide 743H Current Medications Medications (Trade) Dose Ordered Sig/Beto Route PRN Reason Start Time Stop Time Status Last Admin Dose Admin Acetaminophen (Tylenol) 650 mg Q4H PRN ORAL Mild Pain (Pain Scale 1-3) 07/01/17 12:45 07/26/17 12:31 Albuterol/ Ipratropium (Albuterol/ Ipratropium) 3 ml Q4H PRN HHN dyspnea 07/01/17 12:32 07/03/17 12:31 Albuterol/ Ipratropium (Albuterol/ Ipratropium) 3 ml Q6HRT HHN 07/01/17 13:00 07/03/17 23:59 07/02/17 07:58 Dextrose (Dextrose 50%) STAT PRN IV Hypoglycemia 07/01/17 12:32 07/27/17 12:31 Diphenhydramine HCl (Benadryl) 25 mg Q8H PRN ORAL Itching 07/01/17 12:32 07/27/17 12:31 Heparin Sodium (Porcine) (Heparin 5000 units/ml) 5,000 units EVERY 12 HOURS SUBQ 07/01/17 21:00 07/25/17 20:59 07/02/17 08:55 Lorazepam (Ativan 2mg/ml 1ml) 0.5 mg Q4H PRN IV For Anxiety 07/01/17 12:32 07/05/17 12:31 Magnesium Hydroxide (Mom) 30 ml Q24HRS PRN ORAL Constipation 07/01/17 12:33 07/27/17 12:32 Methylprednisolone Sodium Succinate (Solu-MEDROL) 60 mg EVERY 12 HOURS IV 07/01/17 21:00 07/26/17 00:00 07/02/17 08:55 Morphine Sulfate (Morphine Sulfate) 2 mg Q4H PRN IVP severe pain 7-10 07/01/17 12:33 07/03/17 12:32 Nitroglycerin (Ntg) 0.4 mg Q5M X 3 DOSES PRN SL Prn Chest Pain 07/01/17 12:30 07/25/17 20:58 07/01/17 17:47 Ondansetron HCl (Zofran) 4 mg Q6H PRN IVP Nausea & Vomiting 07/01/17 12:33 07/27/17 12:32 Promethazine HCl/ Codeine (Phenergan with Codeine) 5 ml Q6H PRN ORAL cough 07/01/17 12:33 07/27/17 12:32 07/01/17 21:23 Temazepam (Restoril) 15 mg HSPRN PRN ORAL Insomnia 07/01/17 12:45 07/05/17 23:59 Theophylline (Claude-Dur) 100 mg EVERY 12 HOURS ORAL 07/01/17 21:00 07/25/17 20:59 07/02/17 08:43 Gaby Richards (Vanchtein) [employer]ATOR Jul 02, 2017 10:55
[2017-07-02] MEDS ORDERED: Levofloxacin 500mg tab ORAL SCH (11:00)
--- NOTE | 2017-07-02 13:04 | Diagnostic Imaging Report ---
Indication: Cough Technique: One view of the chest Comparison: 06/29/2017 Findings: Suboptimal inspiration. There are some atelectasis in the left midlung periphery, not evident previously. No significant change otherwise. The lungs and pleural spaces are otherwise clear. The heart is borderline enlarged. Impression: Left lateral atelectasis. No acute process otherwise
[2017-07-02] MEDS ORDERED: Solu-MEDROL 125mg Inj IV SCH ×2 (14:00→22:00)
[2017-07-02] MEDS ORDERED: LORazepam Inj 2mg/ml 1ml IV PRN (14:30)
[2017-07-02] MEDS ORDERED: Albuterol/Ipratropium 3ml neb HHN PRN (14:30)
[2017-07-02] MEDS ORDERED: Nitroglycerin Subl 0.4mg tab SL PRN (14:30)
[2017-07-02] MEDS ORDERED: Morphine Sulfate 4mg/ml Inj IVP PRN (14:30)
--- NOTE | 2017-07-02 21:27 | Internal Med Progress Note ---
Subjective Physician Name Thierry Medina Attending Physician Thierry Medina M.D. Current Medications Medications (Trade) Dose Ordered Sig/Beto Route PRN Reason Start Time Stop Time Status Last Admin Dose Admin Acetaminophen (Tylenol) 650 mg Q4H PRN ORAL Mild Pain (Pain Scale 1-3) 07/02/17 15:30 07/26/17 15:29 Albuterol/ Ipratropium (Albuterol/ Ipratropium) 3 ml Q4H PRN HHN dyspnea 07/02/17 14:30 07/03/17 14:29 Albuterol/ Ipratropium (Albuterol/ Ipratropium) 3 ml Q6HRT HHN 07/02/17 19:00 07/03/17 23:59 07/02/17 19:44 Dextrose (Dextrose 50%) STAT PRN IV Hypoglycemia 07/02/17 14:30 08/01/17 14:29 Diphenhydramine HCl (Benadryl) 25 mg Q8H PRN ORAL Itching 07/02/17 14:30 07/27/17 14:29 Heparin Sodium (Porcine) (Heparin 5000 units/ml) 5,000 units EVERY 12 HOURS SUBQ 07/02/17 21:00 07/25/17 20:59 07/02/17 20:54 Levofloxacin (Levaquin) 500 mg DAILY ORAL 07/03/17 09:00 07/09/17 10:59 Lorazepam (Ativan 2mg/ml 1ml) 0.5 mg Q4H PRN IV For Anxiety 07/02/17 14:30 07/05/17 14:29 Magnesium Hydroxide (Mom) 30 ml Q24HRS PRN ORAL Constipation 07/03/17 14:30 07/27/17 14:29 Methylprednisolone Sodium Succinate (Solu-MEDROL) 60 mg Q8HR IV 07/02/17 22:00 07/26/17 00:00 07/02/17 20:50 Morphine Sulfate (Morphine Sulfate) 2 mg Q4H PRN IVP severe pain 7-10 07/02/17 14:30 07/03/17 14:29 Nitroglycerin (Ntg) 0.4 mg Q5M X 3 DOSES PRN SL Prn Chest Pain 07/02/17 14:30 07/25/17 20:58 Ondansetron HCl (Zofran) 4 mg Q6H PRN IVP Nausea & Vomiting 07/02/17 14:30 07/27/17 14:29 Promethazine HCl/ Codeine (Phenergan with Codeine) 5 ml Q6H PRN ORAL cough 07/02/17 14:30 07/27/17 14:29 Temazepam (Restoril) 15 mg HSPRN PRN ORAL Insomnia 07/02/17 21:00 07/09/17 20:59 Theophylline (Claude-Dur) 100 mg EVERY 12 HOURS ORAL 07/02/17 21:00 07/25/17 20:59 07/02/17 20:50 Allergies: Coded Allergies: ASPIRIN (Verified Allergy, Intermediate, 06/25/17) Subjective on 2L O2 less wheezing c/o dysphagia reports severe SOB 12 pt ROS neg except above positives Objective Last Vital Signs Date Time Temp Pulse Resp B/P (MAP) Pulse Ox O2 Delivery O2 Flow Rate FiO2 07/02/17 20:00 95 Nasal Cannula 2.0 07/02/17 19:54 81 20 28 07/02/17 19:18 97.5 147/76 Laboratory Tests Test 07/02/17 06:40 Troponin I 0.002 ng/mL (0.000-0.056) Pro-B-Type Natriuretic Peptide 743 pg/mL (0-125) H Intake and Output 07/01/17 07/02/17 19:00 07:00 Intake Total 116 ml 236 ml Output Total 500 ml Balance 116 ml -264 ml Intake Oral 116 ml 236 ml Output Urine Total 500 ml # Voids 3 Objective gen - NAD heent - NC/AT CVS - RRR/ Lungs - b/l epiratory wheezing Abd - NT/ ND Ext - No c/c/e Assessment/Plan Assessment/Plan Problem List: 1. COPD Exacerbation - medsurg - BIPAP prn - Pulmonary consult - Solumedrol 60mg IV BID - Duoneb Q 12 ATC and prn - Tamiflu empirically despite negative flu screen - titrate off O2 ; 2. htn -- controlled 3. h/o osteomyelitis 4. dysphagia - GI consulted THIERRY MEDINA M.D. Jul 02, 2017 21:27
[2017-07-03] MEDS: Albuterol/Ipratropium 3ml neb HHN SCH ×3 (02:13→20:57)
[2017-07-03] MEDS: Promethazine/Codeine 5ml UD ORAL PRN (03:24)
[2017-07-03 03:56] VITALS: BP 138/65
[2017-07-03 08:00] VITALS: BP 154/67
[2017-07-03] MEDS: Theophylline ER 100mg ORAL SCH ×2 (08:33→20:07)
--- NOTE | 2017-07-03 08:33 | Cardiology Report ---
APPROVED REPORT EKG Measurement Heart [id number] Normal sinus rhythm with sinus arrhythmia Left ventricular hypertrophy with QRS widening Abnormal ECG
[2017-07-03] MEDS: Heparin 5000 units/ml inj SUBQ SCH ×2 (08:36→20:13)
[2017-07-03 08:58] LABS: BASOPHILS % (AUTO) 0.8 % (0.0-2.0); LYMPHOCYTES % (AUTO) 13.1 % (20.0-45.0); MEAN CORPUSCULAR VOLUME 97 FL (80-99); MONOCYTES % (AUTO) 7.2 % (1.0-10.0); NEUTROPHILS % (AUTO) 78.9 % (45.0-75.0); PLATELET COUNT 264 K/UL (150-450); RED BLOOD COUNT 3.94 M/UL (4.20-5.40); RED CELL DISTRIBUTION WIDTH 13.6 % (11.6-14.8); WHITE BLOOD COUNT 13.8 K/UL (4.8-10.8)
[2017-07-03] MEDS ORDERED: Solu-MEDROL 125mg Inj IV SCH (09:00)
[2017-07-03] MEDS ORDERED: Levofloxacin 500mg tab ORAL SCH (09:00)
[2017-07-03 09:28] LABS: ANION GAP 9 mmol/L (5-15); BLOOD UREA NITROGEN 22 mg/dL (7-18); CALCIUM 8.6 MG/DL (8.5-10.1); CARBON DIOXIDE 27 MMOL/L (21-32); CHLORIDE 101 MMOL/L (98-107); CREATININE 1.5 MG/DL (0.55-1.30); POTASSIUM 4.3 MMOL/L (3.5-5.1); SODIUM 137 MMOL/L (136-145)
[2017-07-03 12:00] VITALS: BP 145/84
--- NOTE | 2017-07-03 13:36 | Pulmonology Progress Note ---
Assessment/Plan Assessment/Plan ASSESSMENT Acute hypoxemic RF requiring BiPAP-resolved acute COPD exacerbation bronchospasm acute purulent bronchitis ATN HTN chest pain , atypical dysphagia chest pain with swallowing PLAN OF CARE MS floor weaned from BiPAP O2 titrate to keep pulse ox above 93% HHN ATN and prn , and CPT tid with HHN IV steroids ,taper Continue with trial of theophylline Empiric abx a/tussive prn +Tessalon pulse ox stable on RA after 30 min -97 but developed SOB cardio eval appreciated serial troponin negative ECG no acute ischemic changes no cardiac complaints now ? epigastric pain ? due to acute COPD exacerbation vs? anxiety further management as per cardio ECHO done initially with pEF no significant cardiac history per cardio likely atypical CP and further workup is limited for now due to bronchospasm swallow eval stat and per conversation with ST stat VSSE GI eval now DVT prophylaxis pain management empiric Tamiflu -despite negative influenza screen, (sensitivity of rapid test only about 60%) Sputum+ stewart, influenza screen negative bl cx + Diphtheroids - contaminant, repeated blood cx prel negative, and UA negative ECHO with pEF 60-65% BP controlled ATN likely due to steroids, will taper down and dc in am case discussed and evaluated by supervising physician Subjective Allergies: Coded Allergies: ASPIRIN (Verified Allergy, Intermediate, 06/25/17) Subjective c/o intermittent chest pain, points to epigastric area with swallowing , only able to eat soups w/out pain cardio cleared patient for transfer to [facility] up to .5 Objective Last 24 Hour Vital Signs Date Time Temp Pulse Resp B/P (MAP) Pulse Ox O2 Delivery O2 Flow Rate FiO2 07/03/17 13:17 24 97 Room Air 07/03/17 12:00 97.9 88 20 145/84 95 07/03/17 08:00 97.0 71 21 154/67 98 07/03/17 07:54 Nasal Cannula 2.0 28 07/03/17 07:50 95 20 100 Nasal Cannula 2.0 28 07/03/17 07:40 98 Room Air 2.0 28 07/03/17 07:40 28 07/03/17 07:40 89 20 98 Nasal Cannula 2.0 28 07/03/17 03:56 96.4 74 20 138/65 97 Nasal Cannula 07/03/17 02:19 72 20 94 Nasal Cannula 2.0 28 07/03/17 02:12 72 20 94 Nasal Cannula 2.0 28 07/03/17 02:12 28 07/02/17 23:28 97.5 72 20 137/65 94 Room Air 07/02/17 20:00 95 Nasal Cannula 2.0 07/02/17 19:54 81 20 95 Nasal Cannula 2.0 28 07/02/17 19:42 28 07/02/17 19:42 81 20 95 Room Air 2.0 28 07/02/17 19:41 Room Air 2.0 28 07/02/17 19:41 95 Room Air 2.0 28 07/02/17 19:18 97.5 81 20 147/76 95 Room Air 07/02/17 15:45 97.0 82 18 141/72 96 Nasal Cannula 2.0 07/02/17 14:16 76 16 98 Nasal Cannula 2.0 07/02/17 14:05 79 18 96 Nasal Cannula 2.0 28 Intake and Output 07/02/17 07/03/17 19:00 07:00 Intake Total 800 ml Output Total 350 ml Balance 450 ml Intake Oral 800 ml Output Urine Total 350 ml # Voids 2 2 # Bowel Movements 2 Objective General Appearance: A/A/O x 3 female in NAD HEENT: normocephalic, atraumatic, anicteric, mucous membranes moist Respiratory/Chest: chest wall non-tender, no use of intercostal/ accessory muscle for breathing ; some scattered exp wheezes Heart:SR on tele, Abdomen: normal bowel sounds, soft, non tender, non distended Extremities: no edema Neurologic/Psychiatric: alert, oriented x 3, responsive Musculoskeletal: atrophy - BLE Laboratory Tests 07/03/17 08:40: White Blood Count 13.8H, Red Blood Count 3.94L, Hemoglobin 13.0, Hematocrit 38.0 , Mean Corpuscular Volume 97, Mean Corpuscular Hemoglobin 33.0H, Mean Corpuscular Hemoglobin Concent 34.2, Red Cell Distribution Width 13.6, Platelet Count 264, Mean Platelet Volume 7.5, Neutrophils (%) (Auto) 78.9H, Lymphocytes ( %) (Auto) 13.1L, Monocytes (%) (Auto) 7.2, Eosinophils (%) (Auto) 0.0, Basophils (%) (Auto) 0.8, Sodium Level 137, Potassium Level 4.3, Chloride Level 101, Carbon Dioxide Level 27, Anion Gap 9, Blood Urea Nitrogen 22H, Creatinine 1.5H, Estimat Glomerular Filtration Rate , Glucose Level 195H, Calcium Level 8.6 Current Medications Medications (Trade) Dose Ordered Sig/Beto Route PRN Reason Start Time Stop Time Status Last Admin Dose Admin Acetaminophen (Tylenol) 650 mg Q4H PRN ORAL Mild Pain (Pain Scale 1-3) 07/02/17 15:30 07/26/17 15:29 Albuterol/ Ipratropium (Albuterol/ Ipratropium) 3 ml Q4H PRN HHN dyspnea 07/02/17 14:30 07/03/17 14:29 Albuterol/ Ipratropium (Albuterol/ Ipratropium) 3 ml Q6HRT HHN 07/02/17 19:00 07/03/17 23:59 07/03/17 07:46 Dextrose (Dextrose 50%) STAT PRN IV Hypoglycemia 07/02/17 14:30 08/01/17 14:29 Diphenhydramine HCl (Benadryl) 25 mg Q8H PRN ORAL Itching 07/02/17 14:30 07/27/17 14:29 Heparin Sodium (Porcine) (Heparin 5000 units/ml) 5,000 units EVERY 12 HOURS SUBQ 07/02/17 21:00 07/25/17 20:59 07/03/17 08:36 Levofloxacin (Levaquin) 250 mg Q48H ORAL 07/05/17 09:00 07/12/17 08:59 Lorazepam (Ativan 2mg/ml 1ml) 0.5 mg Q4H PRN IV For Anxiety 07/02/17 14:30 07/05/17 14:29 Magnesium Hydroxide (Mom) 30 ml Q24HRS PRN ORAL Constipation 07/03/17 14:30 07/27/17 14:29 Methylprednisolone Sodium Succinate (Solu-MEDROL) 60 mg Q12HR IV 07/03/17 09:00 08/02/17 08:59 07/03/17 08:33 Morphine Sulfate (Morphine Sulfate) 2 mg Q4H PRN IVP severe pain 7-10 07/02/17 14:30 07/03/17 14:29 Nitroglycerin (Ntg) 0.4 mg Q5M X 3 DOSES PRN SL Prn Chest Pain 07/02/17 14:30 07/25/17 20:58 Ondansetron HCl (Zofran) 4 mg Q6H PRN IVP Nausea & Vomiting 07/02/17 14:30 07/27/17 14:29 Promethazine HCl/ Codeine (Phenergan with Codeine) 5 ml Q6H PRN ORAL cough 07/02/17 14:30 07/27/17 14:29 07/03/17 03:24 Temazepam (Restoril) 15 mg HSPRN PRN ORAL Insomnia 07/02/17 21:00 07/09/17 20:59 Theophylline (Claude-Dur) 100 mg EVERY 12 HOURS ORAL 07/02/17 21:00 07/25/17 20:59 07/03/17 08:33 Maurice ([facility])Gaby NP Jul 03, 2017 13:36
[2017-07-03] MEDS ORDERED: Albuterol/Ipratropium 3ml neb HHN PRN (14:30)
[2017-07-03] MEDS ORDERED: Milk of Magnesia 30ml Ud ORAL PRN (14:30)
--- NOTE | 2017-07-03 14:42 | GI Initial Consult Note ---
OlivoOpal Rolando N.P. 07/03/17 1442: History of Present Illness General Date patient seen: Jul 03, 2017 Time patient seen: 14:30 Reason for Hospitalization: Dyspnea/Respdistress Referring physician: HERIBERTO MEDINA Reason for Consultation: ODYNOPHAGIA Present Illness HPI Patient is an 82-year-old female sent in from assisted living for increased difficulty breathing for the past for days. Patient reportedly had prior history of bronchitis. She recently been hospitalized at [facility]. Patient did have increased shortness of breath as well as chest discomfort. She reported having a productive cough. She denied prior history of cardiac disease. She states that she had prior history of bronchitis GI consulted for odynophagia. Patient seen on med surg, awake A&Ox4 NAD with no active s/sx of N/V/D. Per patient, she has severe sharp epigastric pain 8/10 , more exacerbated when she has PO intake. ST video swallow done and reviewed showed really no aspiration nor penetration, some dysmotility, and no mid esophageal residue, see full report. She presents today with mild leukocytosis and renal insufficiency. Unknown history of endoscopies or colonoscopies, patient cannot accurately recall. Home Meds Active Scripts Albuterol Sulfate* (ALBUTEROL SULFATE MDI*) 8.5 Gm Hfa.aer.ad, 2 PUFF INH Q3H for 30 Days, #1 INH 0 Refills Prov:JIM SAHNI 07/04/17 Reported Medications Lisinopril (LISINOPRIL*) 5 Mg Tablet, 10 MG ORAL DAILY, TAB 06/25/17 Docusate Sodium (DOCUSATE SODIUM) 100 Mg Tablet, 100 MG ORAL DAILY, #30 TAB 0 Refills 06/25/17 Zolpidem Tartrate* (ZOLPIDEM TARTRATE*) 5 Mg Tablet, 5 MG ORAL BEDTIME Y for Insomnia, TAB 0 Refills 06/25/17 Ondansetron* (ZOFRAN*) 4 Mg Tablet, 4 MG ORAL Q6H Y for Nausea & Vomiting, TAB 06/25/17 Albuterol Sulfate* (ALBUTEROL SULFATE HHN*) 2.5 Mg/3 Ml Vial.neb, 3 ML INH THREE TIMES A DAY, #30 EA 0 Refills 06/25/17 Med list reviewed/reconciled: Yes Allergies: Coded Allergies: ASPIRIN (Verified Allergy, Intermediate, 06/25/17) Patient History Limited by: medical condition History Provided By: Patient, Medical Record PMH Narrative Past Medical History: see triage record, COPD Reviewed Nursing Documentation: PMH: Agreed, PSxH: Agreed Social History: Denies: smoking, alcohol use, drug use, other Review of Systems All Other Systems: negative except mentioned in HPI Physical Exam Vital Signs Date Time Temp Pulse Resp B/P (MAP) Pulse Ox O2 Delivery O2 Flow Rate FiO2 06/29/17 07:23 84 20 96 Nasal Cannula 2.0 28 06/29/17 08:00 97.2 147/75 Sp02 EP Interpretation: reviewed, normal Labs Laboratory Tests Test 07/03/17 08:40 White Blood Count 13.8 K/UL (4.8-10.8) H Red Blood Count 3.94 M/UL (4.20-5.40) L Hemoglobin 13.0 G/DL (12.0-16.0) Hematocrit 38.0 % (37.0-47.0) Mean Corpuscular Volume 97 FL (80-99) Mean Corpuscular Hemoglobin 33.0 PG (27.0-31.0) H Mean Corpuscular Hemoglobin Concent 34.2 G/DL (32.0-36.0) Red Cell Distribution Width 13.6 % (11.6-14.8) Platelet Count 264 K/UL (150-450) Mean Platelet Volume 7.5 FL (6.5-10.1) Neutrophils (%) (Auto) 78.9 % (45.0-75.0) H Lymphocytes (%) (Auto) 13.1 % (20.0-45.0) L Monocytes (%) (Auto) 7.2 % (1.0-10.0) Eosinophils (%) (Auto) 0.0 % (0.0-3.0) Basophils (%) (Auto) 0.8 % (0.0-2.0) Sodium Level 137 MMOL/L (136-145) Potassium Level 4.3 MMOL/L (3.5-5.1) Chloride Level 101 MMOL/L (98-107) Carbon Dioxide Level 27 MMOL/L (21-32) Anion Gap 9 mmol/L (5-15) Blood Urea Nitrogen 22 mg/dL (7-18) H Creatinine 1.5 MG/DL (0.55-1.30) H Estimat Glomerular Filtration Rate mL/min (>60) Glucose Level 195 MG/DL (74-106) H Calcium Level 8.6 MG/DL (8.5-10.1) General Appearance: well appearing, no apparent distress, alert, obese Head: normocephalic EENT: PERRL/EOMI, normal ENT inspection Neck: supple Respiratory: normal breath sounds, no respiratory distress Cardiovascular: normal rate Gastrointestinal: non tender, soft, normal bowel sounds, tenderness - epigastric region Rectal: deferred Genitourinary: no CVA tenderness Musculoskeletal: normal inspection, back normal Neurologic: normal inspection, alert, oriented x3, responsive Psychiatric: normal inspection, judgement/insight normal, memory normal Skin: normal inspection, normal color, no rash, warm/dry, palpation normal, well hydrated Lymphatic: normal inspection, no adenopathy Current Medications Current Medications Medications (Trade) Dose Ordered Sig/Beto Route PRN Reason Start Time Stop Time Status Last Admin Dose Admin Acetaminophen (Tylenol) 650 mg Q4H PRN ORAL Mild Pain (Pain Scale 1-3) 07/02/17 15:30 07/26/17 15:29 Albuterol/ Ipratropium (Albuterol/ Ipratropium) 3 ml Q4H PRN HHN dyspnea 07/03/17 14:30 07/04/17 23:59 07/03/17 14:08 Albuterol/ Ipratropium (Albuterol/ Ipratropium) 3 ml Q6HRT HHN 07/03/17 19:00 07/04/17 23:59 Dextrose (Dextrose 50%) STAT PRN IV Hypoglycemia 07/02/17 14:30 08/01/17 14:29 Diphenhydramine HCl (Benadryl) 25 mg Q8H PRN ORAL Itching 07/02/17 14:30 07/27/17 14:29 Heparin Sodium (Porcine) (Heparin 5000 units/ml) 5,000 units EVERY 12 HOURS SUBQ 07/02/17 21:00 07/25/17 20:59 07/03/17 08:36 Levofloxacin (Levaquin) 250 mg Q48H ORAL 07/05/17 09:00 07/12/17 08:59 Lorazepam (Ativan 2mg/ml 1ml) 0.5 mg Q4H PRN IV For Anxiety 07/02/17 14:30 07/05/17 14:29 Magnesium Hydroxide (Mom) 30 ml Q24HRS PRN ORAL Constipation 07/03/17 14:30 07/27/17 14:29 Methylprednisolone Sodium Succinate (Solu-MEDROL) 60 mg ONCE IVP 07/04/17 09:00 07/04/17 09:01 Nitroglycerin (Ntg) 0.4 mg Q5M X 3 DOSES PRN SL Prn Chest Pain 07/02/17 14:30 07/25/17 20:58 Ondansetron HCl (Zofran) 4 mg Q6H PRN IVP Nausea & Vomiting 07/02/17 14:30 07/27/17 14:29 Promethazine HCl/ Codeine (Phenergan with Codeine) 5 ml Q6H PRN ORAL cough 07/02/17 14:30 07/27/17 14:29 07/03/17 03:24 Temazepam (Restoril) 15 mg HSPRN PRN ORAL Insomnia 07/02/17 21:00 07/09/17 20:59 Theophylline (Claude-Dur) 100 mg EVERY 12 HOURS ORAL 07/02/17 21:00 07/25/17 20:59 07/03/17 08:33 GI: Plan Problems: (1) Odynophagia (2) GERD (gastroesophageal reflux disease) Plan ST evaluation noted >> no significant findings patient will benefit from an upper endoscopy to further evaluate odynophagia, to be scheduled as an outpatient procedure. advance diet per ST ppi + H2B pain mgmt electrolyte correction fu labs okay for DC per GI standpoint Discussed with Dr. Jackson. Thank you for this patient referral, we will follow. VITALIY JACKSON 07/05/17 1552: History of Present Illness General Reason for Hospitalization: Dyspnea/Respdistress Present Illness Home Meds Active Scripts Albuterol Sulfate* (ALBUTEROL SULFATE MDI*) 8.5 Gm Hfa.aer.ad, 2 PUFF INH Q3H for 30 Days, #1 INH 0 Refills Prov:ZARRABI,MIRALI 07/04/17 Reported Medications Lisinopril (LISINOPRIL*) 5 Mg Tablet, 10 MG ORAL DAILY, TAB 2/12/18 Docusate Sodium (DOCUSATE SODIUM) 100 Mg Tablet, 100 MG ORAL DAILY, #30 TAB 0 Refills 06/25/17 Zolpidem Tartrate* (ZOLPIDEM TARTRATE*) 5 Mg Tablet, 5 MG ORAL BEDTIME Y for Insomnia, TAB 0 Refills 06/25/17 Ondansetron* (ZOFRAN*) 4 Mg Tablet, 4 MG ORAL Q6H Y for Nausea & Vomiting, TAB 06/25/17 Albuterol Sulfate* (ALBUTEROL SULFATE HHN*) 2.5 Mg/3 Ml Vial.neb, 3 ML INH THREE TIMES A DAY, #30 EA 0 Refills 06/25/17 Allergies: Coded Allergies: ASPIRIN (Verified Allergy, Intermediate, 06/25/17) GI: Plan Plan The patient was seen and examined at bedside and all new and available data was reviewed in the patients chart. I agree with the above findings, impression and plan. (Patient seen earlier today. Signature stamp does not reflect patient encounter time.). - [facility] Rolando Stevenson Jul 03, 2017 14:42 VITALIY JACKSON Jul 05, 2017 15:52
--- NOTE | 2017-07-03 15:24 | Cardiology Report ---
APPROVED REPORT EKG Measurement Heart [id number] Normal sinus rhythm Incomplete left bundle branch block Moderate voltage criteria for LVH, may be normal variant Borderline ECG
[2017-07-03 16:00] VITALS: BP 137/80
[2017-07-03 20:00] VITALS: BP 140/67
--- NOTE | 2017-07-03 21:37 | Internal Med Progress Note ---
Subjective Physician Name Heriberto Medina Attending Physician Heriberto Medina M.D. Current Medications Medications (Trade) Dose Ordered Sig/Beto Route PRN Reason Start Time Stop Time Status Last Admin Dose Admin Acetaminophen (Tylenol) 650 mg Q4H PRN ORAL Mild Pain (Pain Scale 1-3) 07/02/17 15:30 07/26/17 15:29 07/03/17 20:59 Albuterol/ Ipratropium (Albuterol/ Ipratropium) 3 ml Q4H PRN HHN dyspnea 07/03/17 14:30 07/04/17 23:59 07/03/17 14:08 Albuterol/ Ipratropium (Albuterol/ Ipratropium) 3 ml Q6HRT HHN 07/03/17 19:00 07/04/17 23:59 07/03/17 20:57 Dextrose (Dextrose 50%) STAT PRN IV Hypoglycemia 07/02/17 14:30 08/01/17 14:29 Diphenhydramine HCl (Benadryl) 25 mg Q8H PRN ORAL Itching 07/02/17 14:30 07/27/17 14:29 Famotidine (Pepcid) 20 mg QHS ORAL 07/03/17 21:00 08/02/17 20:59 07/03/17 20:07 Heparin Sodium (Porcine) (Heparin 5000 units/ml) 5,000 units EVERY 12 HOURS SUBQ 07/02/17 21:00 07/25/17 20:59 07/03/17 20:13 Levofloxacin (Levaquin) 250 mg Q48H ORAL 07/05/17 09:00 07/12/17 08:59 Lorazepam (Ativan 2mg/ml 1ml) 0.5 mg Q4H PRN IV For Anxiety 07/02/17 14:30 07/05/17 14:29 Magnesium Hydroxide (Mom) 30 ml Q24HRS PRN ORAL Constipation 07/03/17 14:30 07/27/17 14:29 Methylprednisolone Sodium Succinate (Solu-MEDROL) 60 mg ONCE IVP 07/04/17 09:00 07/04/17 09:01 Nitroglycerin (Ntg) 0.4 mg Q5M X 3 DOSES PRN SL Prn Chest Pain 07/02/17 14:30 07/25/17 20:58 Ondansetron HCl (Zofran) 4 mg Q6H PRN IVP Nausea & Vomiting 07/02/17 14:30 07/27/17 14:29 Pantoprazole (Protonix) 40 mg DAILY ORAL 07/04/17 09:00 08/03/17 08:59 Promethazine HCl/ Codeine (Phenergan with Codeine) 5 ml Q6H PRN ORAL cough 07/02/17 14:30 07/27/17 14:29 07/03/17 03:24 Temazepam (Restoril) 15 mg HSPRN PRN ORAL Insomnia 07/02/17 21:00 07/09/17 20:59 Theophylline (Claude-Dur) 100 mg EVERY 12 HOURS ORAL 07/02/17 21:00 07/25/17 20:59 07/03/17 20:07 Allergies: Coded Allergies: ASPIRIN (Verified Allergy, Intermediate, 06/25/17) Subjective on 3L O2 video swallow tomorrow less SOB no wheezing 12 pt ROS neg except above positives Objective Last Vital Signs Date Time Temp Pulse Resp B/P (MAP) Pulse Ox O2 Delivery O2 Flow Rate FiO2 07/03/17 20:59 96.9 07/03/17 20:00 65 17 140/67 96 Nasal Cannula 2.0 07/03/17 19:14 28 Laboratory Tests Test 07/03/17 08:40 White Blood Count 13.8 K/UL (4.8-10.8) H Red Blood Count 3.94 M/UL (4.20-5.40) L Hemoglobin 13.0 G/DL (12.0-16.0) Hematocrit 38.0 % (37.0-47.0) Mean Corpuscular Volume 97 FL (80-99) Mean Corpuscular Hemoglobin 33.0 PG (27.0-31.0) H Mean Corpuscular Hemoglobin Concent 34.2 G/DL (32.0-36.0) Red Cell Distribution Width 13.6 % (11.6-14.8) Platelet Count 264 K/UL (150-450) Mean Platelet Volume 7.5 FL (6.5-10.1) Neutrophils (%) (Auto) 78.9 % (45.0-75.0) H Lymphocytes (%) (Auto) 13.1 % (20.0-45.0) L Monocytes (%) (Auto) 7.2 % (1.0-10.0) Eosinophils (%) (Auto) 0.0 % (0.0-3.0) Basophils (%) (Auto) 0.8 % (0.0-2.0) Sodium Level 137 MMOL/L (136-145) Potassium Level 4.3 MMOL/L (3.5-5.1) Chloride Level 101 MMOL/L (98-107) Carbon Dioxide Level 27 MMOL/L (21-32) Anion Gap 9 mmol/L (5-15) Blood Urea Nitrogen 22 mg/dL (7-18) H Creatinine 1.5 MG/DL (0.55-1.30) H Estimat Glomerular Filtration Rate mL/min (>60) Glucose Level 195 MG/DL (74-106) H Calcium Level 8.6 MG/DL (8.5-10.1) Intake and Output 07/02/17 07/03/17 19:00 07:00 Intake Total 800 ml Output Total 350 ml Balance 450 ml Intake Oral 800 ml Output Urine Total 350 ml # Voids 2 2 # Bowel Movements 2 Objective gen - NAD heent - NC/AT CVS - RRR/ Lungs - CTA b/l Abd - NT/ ND Ext - No c/c/e Assessment/Plan Assessment/Plan Problem List: 1. COPD Exacerbation - medsurg - BIPAP prn - Pulmonary consult - s/p solumedrol - Duoneb Q 12 ATC and prn - Tamiflu empirically despite negative flu screen - titrate off O2 ; 2. htn -- controlled 3. h/o osteomyelitis 4. dysphagia - GI consulted - Video swallow tomorrow 5. RIVER - start IVF d/c planning 1-2 days HERIBERTO MEDINA M.D. Jul 03, 2017 21:37
[2017-07-04] VITALS: BP 130/60
[2017-07-04] MEDS: Albuterol/Ipratropium 3ml neb HHN SCH ×3 (02:02→13:14)
[2017-07-04] MEDS: Promethazine/Codeine 5ml UD ORAL PRN (02:31)
[2017-07-04 04:00] VITALS: BP 135/69
[2017-07-04 08:00] VITALS: BP 134/79
[2017-07-04] MEDS: Theophylline ER 100mg ORAL SCH (08:18)
[2017-07-04] MEDS: Heparin 5000 units/ml inj SUBQ SCH (08:20)
[2017-07-04] MEDS ORDERED: Solu-MEDROL 125mg Inj IVP SCH (09:00)
[2017-07-04 09:34] LABS: BASOPHILS % (AUTO) 1.4 % (0.0-2.0); EOSINOPHILS % (AUTO) 0.3 % (0.0-3.0); HEMATOCRIT 39.8 % (37.0-47.0); HEMOGLOBIN 13.5 G/DL (12.0-16.0); LYMPHOCYTES % (AUTO) 27.9 % (20.0-45.0); MEAN CORPUSCULAR VOLUME 96 FL (80-99); MONOCYTES % (AUTO) 8.3 % (1.0-10.0); NEUTROPHILS % (AUTO) 62.2 % (45.0-75.0); PLATELET COUNT 232 K/UL (150-450); RED BLOOD COUNT 4.14 M/UL (4.20-5.40); RED CELL DISTRIBUTION WIDTH 13.8 % (11.6-14.8); WHITE BLOOD COUNT 13.6 K/UL (4.8-10.8)
[2017-07-04 09:59] LABS: ANION GAP 8 mmol/L (5-15); BLOOD UREA NITROGEN 20 mg/dL (7-18); CALCIUM 8.4 MG/DL (8.5-10.1); CARBON DIOXIDE 28 MMOL/L (21-32); CHLORIDE 103 MMOL/L (98-107); CREATININE 1.2 MG/DL (0.55-1.30); POTASSIUM 3.6 MMOL/L (3.5-5.1); SODIUM 139 MMOL/L (136-145)
--- NOTE | 2017-07-04 10:36 | GI Progress Note ---
Assessment/Plan Problems: (1) GERD (gastroesophageal reflux disease) ICD Codes: K21.9 - Gastro-esophageal reflux disease without esophagitis SNOMED: 485471961 (2) Odynophagia ICD Codes: R13.10 - Dysphagia, unspecified SNOMED: 74694792 Status: stable Status Narrative Discussed with Dr. Bauer. Assessment/Plan ST evaluation noted >> no significant findings, video swallow today patient will benefit from an upper endoscopy to further evaluate odynophagia, to be scheduled as an outpatient procedure. advance diet per ST ppi pain mgmt electrolyte correction fu labs okay for DC per GI standpoint The patient was seen and examined at bedside and all new and available data was reviewed in the patients chart. I agree with the above findings, impression and plan. (Patient seen earlier today. Signature stamp does not reflect patient encounter time.). - Germán Bauer MD Subjective Subjective painful swallowing awaiting video swallow Objective Last 24 Hour Vital Signs Date Time Temp Pulse Resp B/P (MAP) Pulse Ox O2 Delivery O2 Flow Rate FiO2 07/04/17 08:00 96 Room Air 07/04/17 08:00 97.7 62 19 134/79 96 97.7 07/04/17 08:00 84 20 99 Room Air 07/04/17 08:00 Room Air 07/04/17 07:55 94 20 94 Room Air 07/04/17 04:00 96.3 65 17 135/69 99 Nasal Cannula 2.0 96.3 07/04/17 01:29 79 20 99 Nasal Cannula 2.0 28 07/04/17 01:21 98 21 93 Room Air 21 07/04/17 01:21 36 07/04/17 00:00 97.0 63 18 130/60 95 Room Air 97.0 07/03/17 21:58 96.9 07/03/17 20:59 96.9 07/03/17 20:00 97.7 65 17 140/67 96 Nasal Cannula 2.0 97.7 07/03/17 19:14 83 18 99 Nasal Cannula 2.0 28 07/03/17 19:04 36 07/03/17 19:04 92 22 97 Room Air 21 07/03/17 19:00 97 Room Air 21 07/03/17 19:00 Room Air 21 07/03/17 16:00 96.9 88 18 137/80 95 96.9 07/03/17 16:00 Room Air 07/03/17 13:59 91 20 100 Nasal Cannula 2.0 28 07/03/17 13:50 28 07/03/17 13:50 84 20 98 Nasal Cannula 2.0 28 07/03/17 13:17 24 97 Room Air 07/03/17 12:00 97.9 88 20 145/84 95 Intake and Output 07/03/17 07/04/17 19:00 07:00 Intake Total 480 ml 840 ml Balance 480 ml 840 ml Intake Oral 480 ml 240 ml IV Total 600 ml # Voids 3 # Bowel Movements 2 3 Laboratory Tests Test 07/04/17 07:40 White Blood Count 13.6 K/UL (4.8-10.8) H Red Blood Count 4.14 M/UL (4.20-5.40) L Hemoglobin 13.5 G/DL (12.0-16.0) Hematocrit 39.8 % (37.0-47.0) Mean Corpuscular Volume 96 FL (80-99) Mean Corpuscular Hemoglobin 32.7 PG (27.0-31.0) H Mean Corpuscular Hemoglobin Concent 34.0 G/DL (32.0-36.0) Red Cell Distribution Width 13.8 % (11.6-14.8) Platelet Count 232 K/UL (150-450) Mean Platelet Volume 8.0 FL (6.5-10.1) Neutrophils (%) (Auto) 62.2 % (45.0-75.0) Lymphocytes (%) (Auto) 27.9 % (20.0-45.0) Monocytes (%) (Auto) 8.3 % (1.0-10.0) Eosinophils (%) (Auto) 0.3 % (0.0-3.0) Basophils (%) (Auto) 1.4 % (0.0-2.0) Sodium Level 139 MMOL/L (136-145) Potassium Level 3.6 MMOL/L (3.5-5.1) Chloride Level 103 MMOL/L (98-107) Carbon Dioxide Level 28 MMOL/L (21-32) Anion Gap 8 mmol/L (5-15) Blood Urea Nitrogen 20 mg/dL (7-18) H Creatinine 1.2 MG/DL (0.55-1.30) Estimat Glomerular Filtration Rate mL/min (>60) Glucose Level 82 MG/DL (74-106) # Calcium Level 8.4 MG/DL (8.5-10.1) L Height (Feet): 5 Height (Inches): 2.90 Weight (Pounds): 160 General Appearance: WD/WN, no apparent distress, alert Cardiovascular: normal rate Respiratory/Chest: normal breath sounds, no respiratory distress Abdominal Exam: normal bowel sounds, non tender, soft Extremities: normal range of motion, non-tender Opal Olivo N.P. Jul 04, 2017 10:36 VITALIY BAUER Jul 05, 2017 15:53
[2017-07-04 12:00] VITALS: BP 150/73
--- NOTE | 2017-07-04 13:27 | Wound Care Consultation ---
Wound Assessment Wound Assessment #1: Wound Number: 1 Wound Present on Admission: No New Wound: Yes Status Change of Wound: No Wound Location Body Site Modif: left Wound Location Body Site: toe - 2nd anterior Wound Type: scab Darleen Test: Does not Darleen Wound Thickness: Partial Thickness Wound Length: 0.5 Wound Width: 0.5 Percent of Wound Black/Brown: 100 - dry scab Wound Drainage Amount: None Wound Drainage Odor: None/Absent Tissue Surrounding Wound: Intact Wound General Appearance: Open to air, Clean/Dry Wound Assessment #2: Wound Number: 2 Wound Present on Admission: Yes New Wound: No Status Change of Wound: No Wound Location Body Site Modif: mid Wound Location Body Site: sacral Wound Type: scar - scar tissue-intact Darleen Test: Does not Darleen Percent of Wound Murdo/Red: 100 Wound Drainage Amount: None Wound Drainage Odor: None/Absent Tissue Surrounding Wound: Intact Wound General Appearance: Clean/Dry Wound Comment #1 left 2nd toe dry scab. #2 Mid Sacral intact scar tissue. per patient has history of tenderness to sacral area, patient is able to self reposition, repositioning encouraged to avoid skin breakdown, pt understands. Recommendation. -Local wound care as recommended -Turn and reposition, offload. -Avoid shear and friction. -Keep clean and dry, -keep scab dry. -Assess and notify MD for any change of condition to skin. MERARI SALDIVAR Jul 04, 2017 13:27
--- NOTE | 2017-07-04 15:58 | Pulmonology Progress Note ---
Assessment/Plan Problems: (1) Acute respiratory failure (2) COPD with exacerbation (3) Purulent bronchitis (4) COPD (chronic obstructive pulmonary disease) Assessment/Plan getting better titrate fio2 check echo dvt prophylaxis dc planning with out patient GI f/u Subjective ROS Limited/Unobtainable: No Constitutional: Reports: no symptoms HEENT: Repors: no symptoms Respiratory: Reports: no symptoms Allergies: Coded Allergies: ASPIRIN (Verified Allergy, Intermediate, 06/25/17) Objective Last 24 Hour Vital Signs Date Time Temp Pulse Resp B/P (MAP) Pulse Ox O2 Delivery O2 Flow Rate FiO2 07/04/17 14:01 97.7 07/04/17 13:15 88 20 99 Room Air 07/04/17 13:10 89 20 97 Room Air 21 07/04/17 12:00 97.7 78 20 150/73 95 97.7 07/04/17 08:00 96 Room Air 07/04/17 08:00 97.7 62 19 134/79 96 97.7 07/04/17 08:00 84 20 99 Room Air 07/04/17 08:00 Room Air 07/04/17 07:55 94 20 94 Room Air 21 07/04/17 04:00 96.3 65 17 135/69 99 Nasal Cannula 2.0 96.3 07/04/17 01:29 79 20 99 Nasal Cannula 2.0 28 07/04/17 01:21 98 21 93 Room Air 21 07/04/17 01:21 36 07/04/17 00:00 97.0 63 18 130/60 95 Room Air 97.0 07/03/17 20:59 96.9 07/03/17 20:00 97.7 65 17 140/67 96 Nasal Cannula 2.0 97.7 07/03/17 19:14 83 18 99 Nasal Cannula 2.0 28 07/03/17 19:04 36 07/03/17 19:04 92 22 97 Room Air 21 07/03/17 19:00 97 Room Air 21 07/03/17 19:00 Room Air 21 07/03/17 16:00 96.9 88 18 137/80 95 96.9 07/03/17 16:00 Room Air Intake and Output 07/03/17 07/04/17 19:00 07:00 Intake Total 480 ml 840 ml Balance 480 ml 840 ml Intake Oral 480 ml 240 ml IV Total 600 ml # Voids 3 # Bowel Movements 2 3 Objective General Appearance: WD/WN Lines, tubes and drains: peripheral HEENT: normocephalic, atraumatic Neck: non-tender, supple Respiratory/Chest: rhonchi - bilaterally, rhonchi - left, rhonchi - right, expiratory wheezing Cardiovascular/Chest: normal peripheral pulses, normal rate Abdomen: normal bowel sounds, non tender Genitourinary/Rectal: normal genital exam, heme negative stool Extremities: normal range of motion Skin Exam: normal pigmentation Laboratory Tests 07/04/17 07:40: White Blood Count 13.6H, Red Blood Count 4.14L, Hemoglobin 13.5, Hematocrit 39.8 , Mean Corpuscular Volume 96, Mean Corpuscular Hemoglobin 32.7H, Mean Corpuscular Hemoglobin Concent 34.0, Red Cell Distribution Width 13.8, Platelet Count 232, Mean Platelet Volume 8.0, Neutrophils (%) (Auto) 62.2, Lymphocytes (% ) (Auto) 27.9, Monocytes (%) (Auto) 8.3, Eosinophils (%) (Auto) 0.3, Basophils ( %) (Auto) 1.4, Sodium Level 139, Potassium Level 3.6, Chloride Level 103, Carbon Dioxide Level 28, Anion Gap 8, Blood Urea Nitrogen 20H, Creatinine 1.2, Estimat Glomerular Filtration Rate , Glucose Level 82#, Calcium Level 8.4L Current Medications Medications (Trade) Dose Ordered Sig/Beto Route PRN Reason Start Time Stop Time Status Last Admin Dose Admin Acetaminophen (Tylenol) 650 mg Q4H PRN ORAL Mild Pain (Pain Scale 1-3) 07/02/17 15:30 07/26/17 15:29 07/04/17 13:02 Albuterol/ Ipratropium (Albuterol/ Ipratropium) 3 ml Q4H PRN HHN dyspnea 07/03/17 14:30 07/04/17 23:59 07/03/17 14:08 Albuterol/ Ipratropium (Albuterol/ Ipratropium) 3 ml Q6HRT HHN 07/03/17 19:00 07/04/17 23:59 07/04/17 13:14 Dextrose (Dextrose 50%) STAT PRN IV Hypoglycemia 07/02/17 14:30 08/01/17 14:29 Diphenhydramine HCl (Benadryl) 25 mg Q8H PRN ORAL Itching 07/02/17 14:30 07/27/17 14:29 Heparin Sodium (Porcine) (Heparin 5000 units/ml) 5,000 units EVERY 12 HOURS SUBQ 07/02/17 21:00 07/25/17 20:59 07/04/17 08:20 Levofloxacin (Levaquin) 250 mg Q24H ORAL 07/04/17 16:00 07/11/17 15:59 Lorazepam (Ativan 2mg/ml 1ml) 0.5 mg Q4H PRN IV For Anxiety 07/02/17 14:30 07/05/17 14:29 Magnesium Hydroxide (Mom) 30 ml Q24HRS PRN ORAL Constipation 07/03/17 14:30 07/27/17 14:29 Nitroglycerin (Ntg) 0.4 mg Q5M X 3 DOSES PRN SL Prn Chest Pain 07/02/17 14:30 07/25/17 20:58 Ondansetron HCl (Zofran) 4 mg Q6H PRN IVP Nausea & Vomiting 07/02/17 14:30 07/27/17 14:29 Pantoprazole (Protonix) 40 mg DAILY ORAL 07/04/17 09:00 08/03/17 08:59 07/04/17 08:18 Promethazine HCl/ Codeine (Phenergan with Codeine) 5 ml Q6H PRN ORAL cough 07/02/17 14:30 07/27/17 14:29 07/04/17 02:31 Sodium Chloride 1,000 ml @ 75 mls/hr [id number] IV 07/03/17 22:00 08/02/17 21:59 07/04/17 12:23 Temazepam (Restoril) 15 mg HSPRN PRN ORAL Insomnia 07/02/17 21:00 07/09/17 20:59 Theophylline (Claude-Dur) 100 mg EVERY 12 HOURS ORAL 07/02/17 21:00 07/25/17 20:59 07/04/17 08:18 JIM SAHNI Jul 04, 2017 15:58
[2017-07-04] MEDS ORDERED: ALBUTEROL SULF8.5 GM INH (15:59)
[2017-07-04 16:00] VITALS: BP 135/65
[2017-07-04] MEDS ORDERED: 1/2 NS 1000ml IV ONE (18:58)
--- NOTE | 2017-07-04 22:06 | Diagnostic Imaging Report ---
APPROVED REPORT CPT Code: 62840 Present Symptoms Shortness of breath BILATERAL: Imaging reveals a patent deep venous system bilaterally. There is no evidence of thrombus within the femoral, popliteal or tibial segments. The greater saphenous veins are also within normal limits. Doppler indicates normal spontaneous flow within these segments.
--- NOTE | 2017-07-05 12:10 | Discharge Summary ---
Discharge Summary Hospital Course Date of Admission Jun 25, 2017 at 16:41 Date of Discharge Jul 04, 2017 at 18:59 Admitting Diagnosis COPD exacerabation HPI Mary Chapa is a 82 year old female who was admitted on Jun 25, 2017 at 16: 41 for Chronic Obstructive Pulmonary Disease Exacerbation She was started on Steroids, Nebs and improved significantly. Flu negative seen by Pulmonary - Dr. Hammonds discharge dx COPD exacerbation Dysphagia Discharge Condition Upon Discharge: stable Discharge Disposition Patient was discharged to Home (01) Discharge Diagnoses: HERIBERTO MEDINA M.D. Jul 05, 2017 12:10
--- NOTE | 2017-07-06 10:53 | Discharge Summary ---
Discharge Summary Hospital Course Date of Admission Jun 25, 2017 at 16:41 Date of Discharge Jul 04, 2017 at 18:59 Admitting Diagnosis COPD exacerabation HPI Mary Chapa is a 82 year old female who was admitted on Jun 25, 2017 at 16: 41 for Chronic Obstructive Pulmonary Disease Exacerbation Hospital Course ADDENDUM: #[id number] Discharge Discharge Disposition Patient was discharged to Home with Discharge Diagnoses: Blanca Coffey NP Jul 06, 2017 10:53
--- NOTE | 2017-07-07 03:00 | Discharge Summary 2 SIG ---
DATE OF ADMISSION: 06/25/2017 DATE OF DISCHARGE: 07/04/2017 CONSULTANTS: 1. Tj Cortes M.D. 2. Derick Espinosa M.D. 3. Codey Roth M.D. BRIEF HOSPITAL COURSE: The patient is an 82-year-old female with history of hypertension, cellulitis, osteomyelitis, presented to emergency room for complaints of shortness of breath for 5 days. She was recently hospitalized at [facility] for shortness of breath and was discharged with albuterol inhaler. She is a former smoker who smoked over 20 years and with heavy smoking history. She reported cough that is productive. On evaluation at emergency room, she was found to be in respiratory distress with use of accessory muscles of respiration. She was placed on BiPAP. Her CO2 on ABG was 32. Chest x-ray revealed no infiltrate. She was admitted for acute respiratory failure due to acute COPD exacerbation. She was screened for influenza. Influenza A and B screens were negative. She was given pulmonary support and was placed on DuoNeb every six hours and Solu-Medrol 60 mg IV q.6 h. She was given heparin subcutaneous for DVT prophylaxis. She was continued on Tamiflu despite negative influenza screen. She was eventually weaned off BiPAP the following day. However, continued to be congested and wheezing. Blood culture showed growth of diphtheroids, most likely contaminant growth 1/4. Repeat blood culture did not isolate any growth. Sputum culture with growth of normal respiratory torrie and Comfort. She was given trial of theophylline. IV steroids were tapered. She complained of chest pain and was transferred to telemetry. Serial troponin and EKG was done. EKG did not show any acute ischemic changes and troponins were negative. Echocardiogram showed EF of 60% to 65% with no aortic regurgitation. No mitral regurgitation. No tricuspid regurgitation. Venous duplex of lower extremity was negative. She complained of odynophagia and had pain in the epigastric area. Speech therapy, video swallow done revealed no aspiration or penetration. She was given proton-pump inhibitors and H2 blockers. Diet was advanced. She was recommended upper endoscopy, which can be done as an outpatient. She was saturating well on room air. She was eventually discharged home with home health. FINAL DIAGNOSES: 1. Acute respiratory failure requiring BiPAP resolved. 2. Acute chronic obstructive pulmonary disease exacerbation. 3. Acute purulent bronchitis. 4. Bronchospasms. 5. Hypertension. 6. Dysphagia. 7. Chest pain with swallowing. DISPOSITION: The patient was discharged home with home health. DISCHARGE MEDICATIONS: Refer to medication list. DISCHARGE INSTRUCTIONS: Follow up with PMD and GI for further workup of dysphagia and possible endoscopy. Thierry Paul MD I have been assigned to dictate discharge summary on this account and I was not involved in the patient's management. Blanca Coffey N.P. DR: BEN JOB#: [id number] CC: JOSE
--- NOTE | 2017-07-09 14:26 | Diagnostic Imaging Report ---
Indication: Dysphasia Procedure and findings: Real-time fluoroscopic imaging performed in a lateral projection in conjunction with the speech pathologist evaluation. Variable consistencies of barium given per mouth. Findings: Significant abnormalities of both oral and pharyngeal phases of swallowing are demonstrated. Total fluoroscopic time 172 seconds. No definite aspiration identified. No penetration seen. Abnormal video swallow. Please refer to speech pathology evaluation for more information.
== END 2017-07-04 18:59 | disposition home health service (06) | DRG 189 ==
LOC: EDBD 15:31 → EMR 15:40 → 2W 16:41 → EDBEDREQ 16:57 → 4E 06-27 20:43 → 2E 07-01 08:41 → 4W 07-02 14:20
PROC: 5A09357 Assistance with Respiratory Ventilation, Less than 24 Consecutive Hours, Continuous Positive Airway Pressure (ICD-10-PCS; principal; 2017-06-25)
DX: J96.01 Acute respiratory failure with hypoxia (principal); N17.0 Acute kidney failure with tubular necrosis; J44.0 Chronic obstructive pulmonary disease with (acute) lower respiratory infection; J44.1 Chronic obstructive pulmonary disease with (acute) exacerbation; R13.10 Dysphagia, unspecified; J20.9 Acute bronchitis, unspecified; I10 Essential (primary) hypertension; K21.9 Gastro-esophageal reflux disease without esophagitis; R07.89 Other chest pain
CPT/HCPCS: 36415; 36600; 71045; 74230; 80048; 80053; 81003; 82550; 82553; 82803; 83036; 83605; 83735; 83880; 84484; 85025; 86710; 87040; 87070; 87081; 87086; 87205; 93005; 93306; 93970; 94640; 94660; 94664; 94760; 99285; J2405; J7620; J8499

== ENCOUNTER 2018-12-31 12:16 | Inpatient (IN) | payer BC, MEDICARE ==
[~2018-12-31] VITALS: Ht 162.6 cm; Wt 77.1 kg
[2018-12-31 12:16] VITALS: BP 145/75
[~2018-12-31 12:16] MED LIST: ALBUTEROL SULF8.5 GM INH; ALBUTEROL2.5 MG/3 M INH; DOCUSATE SODIU100 M2 ORAL; LISINOPRIL5 MG ORAL; ZOFRAN4 M3 ORAL; ZOLPIDEM TARTRAT5 MG ORAL
--- NOTE | 2018-12-31 12:32 | Emergency Room Report ---
History of Present Illness General Chief Complaint: Abdominal Pain Source: Patient, Medical Record (Nick Chris MD) Present Illness HPI Patient is an 83-year-old female who presented after increased lower abdominal pain. Patient reports having some chest pain last night. She states this lasted about 4 hours. Resolved spontaneously. She reports having some irregular heartbeats. She denies taking any medications regularly. She states that in assisted living facility. Patient reports having persistent pain to her lower abdomen. She reports having increased difficulty with having stool.She reports having no prior cardiac history. She does not take any medications for blood pressure. (Nick Chris MD) Allergies: Coded Allergies: ASPIRIN (Verified Allergy, Intermediate, 06/25/17) Patient History Past Medical History: see triage record Now: No Reviewed Nursing Documentation: PMH: Agreed; PSxH: Agreed (Nick Chris MD) Nursing Documentation-PMH Past Medical History: No History, Except For Hx COPD: Yes Hx Diabetes: No Hx Cancer: No Hx Gastrointestinal Problems: No Hx Dialysis: No Hx Neurological Problems: No Hx Cerebrovascular Accident: No Hx Transient Ischemic Attacks: No Hx Dementia: No Hx Alzheimer's Disease: No Hx Parkinson's Disease: No Hx Meningitis: No Hx Encephalitis: No Hx Seizures: No Hx Epilepsy: No Hx Multiple Sclerosis: No Hx Cerebral Palsy: No Hx Amyotrophic Lat Sclerosis: No Hx Guillian-[place] Syndrome: No Hx Paralysis: No Hx Peripheral Neuropathy: No Hx Spinal Cord Injury: No Hx Head Trauma: No Hx Traumatic Brain Injury: No Hx Memory Loss: No Hx Concentration Difficulty: No Hx Speech Problem: No Hx Tremors: No Hx Vertigo: No Hx Dizziness: No Hx Syncope: No Hx Headaches: No Hx Aphasia: No Hx Dysphasia: No Hx Numbness: No Hx Weakness: Yes Hx Fatigue: No Hx Neurologic Surgery: No Hx Brain Shunt: No (Nick Chris MD) Review of Systems All Other Systems: negative except mentioned in HPI (Nick Chris MD) Physical Exam Vital Signs Date Time Temp Pulse Resp B/P (MAP) Pulse Ox O2 Delivery O2 Flow Rate FiO2 12/31/18 12:12 98.1 71 20 129/67 (87) 95 Room Air Sp02 EP Interpretation: reviewed, normal General Appearance: normal inspection, well appearing, alert, GCS 15 Head: atraumatic ENT: normal ENT inspection, hearing grossly normal, normal voice Neck: normal inspection, full range of motion, supple, no bony tend Respiratory: normal inspection, lungs clear, normal breath sounds, no respiratory distress, no retraction, no wheezing Cardiovascular #1: normal inspection, normal peripheral pulses, regular rate, rhythm, no edema Gastrointestinal: normal inspection, normal bowel sounds, non tender, soft, no guarding, no hernia Genitourinary: no CVA tenderness Musculoskeletal: normal inspection, back normal, normal range of motion Neurologic: normal inspection, alert, oriented x3, responsive, engineer operations and maintenance III-XII nml as tested, speech normal Psychiatric: normal inspection, judgement/insight normal, mood/affect normal (Nick Chris MD) Medical Decision Making Diagnostic Impression: Primary Impression: Pancreatitis, acute Qualified Codes: K85.90 - Acute pancreatitis without necrosis or infection, unspecified Additional Impressions: Chest pain Qualified Codes: R07.9 - Chest pain, unspecified Rectal cancer ER Course Patient presented for abdominal pain. Differential diagnosis include was not limited to pancreatitis, urinary tract infection, colitis among others. Because of complexity of patient's case laboratory testing and imaging studies were ordered. Patient's laboratory testing was notable for elevated lipase consistent with pancreatitis. Patient was noted to have some pain yesterday consistent with possible pancreatitis however this seems to have improved. Patient also was noted to have some suprapubic pain. CT imaging was ordered due to patient's significant pain advanced age. EKG interpreted by me showed normal sinus rhythm with a rate of [address] or T wave changes. Labs Test 12/31/18 12:45 White Blood Count 10.5 K/UL (4.8-10.8) Red Blood Count 4.49 M/UL (4.20-5.40) Hemoglobin 13.7 G/DL (12.0-16.0) Hematocrit 41.5 % (37.0-47.0) Mean Corpuscular Volume 92 FL (80-99) Mean Corpuscular Hemoglobin 30.4 PG (27.0-31.0) Mean Corpuscular Hemoglobin Concent 32.9 G/DL (32.0-36.0) Red Cell Distribution Width 12.7 % (11.6-14.8) Platelet Count 252 K/UL (150-450) Mean Platelet Volume 6.7 FL (6.5-10.1) Neutrophils (%) (Auto) 70.6 % (45.0-75.0) Lymphocytes (%) (Auto) 16.1 % (20.0-45.0) Monocytes (%) (Auto) 8.0 % (1.0-10.0) Eosinophils (%) (Auto) 4.0 % (0.0-3.0) Basophils (%) (Auto) 1.3 % (0.0-2.0) Prothrombin Time 9.8 SEC (9.30-11.50) Prothromb Time International Ratio 0.9 (0.9-1.1) Activated Partial Thromboplast Time 27 SEC (23-33) Sodium Level 137 MMOL/L (136-145) Potassium Level 4.0 MMOL/L (3.5-5.1) Chloride Level 104 MMOL/L (98-107) Carbon Dioxide Level 24 MMOL/L (21-32) Anion Gap 9 mmol/L (5-15) Blood Urea Nitrogen 15 mg/dL (7-18) Creatinine 1.0 MG/DL (0.55-1.30) Estimat Glomerular Filtration Rate mL/min (>60) Glucose Level 105 MG/DL (74-106) Calcium Level 9.0 MG/DL (8.5-10.1) Total Bilirubin 0.3 MG/DL (0.2-1.0) Aspartate Amino Transf (AST/SGOT) 17 U/L (15-37) Alanine Aminotransferase (ALT/SGPT) 16 U/L (12-78) Alkaline Phosphatase 75 U/L (46-116) Troponin I 0.000 ng/mL (0.000-0.056) Total Protein 7.1 G/DL (6.4-8.2) Albumin 3.2 G/DL (3.4-5.0) Globulin 3.9 g/dL Albumin/Globulin Ratio 0.8 (1.0-2.7) Lipase 895 U/L (73-393) (Nick Chris MD) ER Course Spoke with Vitor Olsen at 3:38 PM who will accept patient at [facility] Reevaluation 5:36 PM, no beds available at [facility] Will be admitted to Dr. Paul 5:36pm Patient also will require gastroenterology evaluation given her possible rectal cancer with incidental finding on CT, patient with lymph nodes. (William Vázquez MD) EKG Diagnostic Results Rate: normal Rhythm: NSR ST Segments: no acute changes (Nick Chris MD) CT/MRI/US Diagnostic Results CT/MRI/US Diagnostic Results : Impression Procedure: CT Abdomen Pelvis w/Contrast Clinical Indication: Abdominal pain Technique: No oral contrast utilized, per emergency room physician request IV administration nonionic contrast. Venous phase spiral acquisition obtained through the abdomen and pelvis. Multiplanar reconstructions were generated. Total dose length product 1310.78 mGycm. CTDIvol(s) 26.25 mGy. Dose reduction achieved using automated exposure control Comparison: none Findings: Lack of enteric contrast limits assessment of the GI tract. There is marked wall thickening of the distal rectum, with stranding of the perirectal fat and prominent regional lymph nodes. Enlarged nodes are also seen in the mesenteric root, measuring up to 2 cm long axis dimension. There is colonic diverticulosis. No definite evidence of diverticulitis. A metallic density in the proximal transverse colon could represent an endoluminal clip, versus ingested foreign body. The appendix is not definitely identified, but there are no findings to suggest acute appendicitis. No small bowel distention. No free or loculated intraperitoneal gas or fluid. There is a fat-containing ventral hernia just above the umbilicus. There is a small sliding-type hiatal hernia. There is questionable wall thickening of the distal esophagus, and there are prominent paraesophageal lymph nodes. The liver, gallbladder, bile ducts, pancreas, spleen adrenals are all unremarkable. The kidneys demonstrate mild bilateral hydronephrosis. There is a subcentimeter low-attenuation lesion within the right kidney, too small to characterize, most likely benign simple cortical cyst. No further follow-up necessary. There is slight ectasia of the right ureter. The left ureter is nondilated. No definite downstream obstructive lesion demonstrated. The bladder is mildly distended. The uterus is mildly enlarged, contains numerous calcifications consistent with old degenerated fibroids. No adnexal mass. There are bilateral basilar atelectatic changes. The bones demonstrate mild compression fracture deformities of the L2, L3, and L5 vertebral bodies. These are age-indeterminate. Impression: Wall thickening of the rectum with surrounding fat stranding and regional and mesenteric root lymphadenopathy. While possibly on the basis of proctitis, findings are concerning for rectal malignancy. Consider endoscopy for further evaluation Hiatal hernia. Equivocal distal esophageal wall thickening and somewhat prominent surrounding lymph nodes raises concern for esophagitis or, less likely, esophageal neoplasm. Upper endoscopy should likewise be considered. Colonic diverticulosis. No evidence of diverticulitis Age-indeterminate compression fracture deformities of the L2, L3, and L5 vertebral bodies. Consider MRI for better characterization if clinically relevant Mild bilateral hydronephrosis without evidence of downstream obstructive lesion, significance/etiology uncertain. Enlarged uterus with old degenerated calcified fibroids Bilateral basilar pulmonary atelectatic changes Subcentimeter right renal lesion, probably a small cortical cyst. No further follow-up necessary Findings discussed by phone with Dr. Vázquez at the time of interpretation The CT scanner at [facility] is accredited by the [employer] and the scans are performed using protocols designed to limit radiation exposure to as low as reasonably achievable to attain images of sufficient resolution adequate for diagnostic evaluation. Dictated By: Wilbert Taveras MD Electronically Signed By: Wilbert Taveras MD Signed Date/Time 12/31/18 [id number] CC: Nick Chris MD (William Vázquez MD) Last Vital Signs Date Time Temp Pulse Resp B/P (MAP) Pulse Ox O2 Delivery O2 Flow Rate FiO2 12/31/18 12:12 98.1 71 20 129/67 (87) 95 Room Air Status: unchanged (Nick Chris MD) Disposition: ADMITTED INPATIENT Condition: Stable Nick Chris MD Dec 31, 2018 12:32 William Vázquez MD Dec 31, 2018 15:48
[2018-12-31] MEDS ORDERED: Isovue-300 100ml vial INJ PRN (12:45)
[2018-12-31 13:01] LABS: BASOPHILS % (AUTO) 1.3 % (0.0-2.0); HEMATOCRIT 41.5 % (37.0-47.0); HEMOGLOBIN 13.7 G/DL (12.0-16.0); LYMPHOCYTES % (AUTO) 16.1 % (20.0-45.0); MEAN CORPUSCULAR VOLUME 92 FL (80-99); NEUTROPHILS % (AUTO) 70.6 % (45.0-75.0); PLATELET COUNT 252 K/UL (150-450); RED BLOOD COUNT 4.49 M/UL (4.20-5.40); RED CELL DISTRIBUTION WIDTH 12.7 % (11.6-14.8); WHITE BLOOD COUNT 10.5 K/UL (4.8-10.8)
[2018-12-31 13:12] LABS: ANION GAP 9 mmol/L (5-15); BLOOD UREA NITROGEN 15 mg/dL (7-18); CARBON DIOXIDE 24 MMOL/L (21-32); CHLORIDE 104 MMOL/L (98-107); INR 0.9 (0.9-1.1); SODIUM 137 MMOL/L (136-145)
[2018-12-31 13:16] LABS: ALANINE AMINOTRANSFERASE 16 U/L (12-78); ALBUMIN 3.2 G/DL (3.4-5.0); ALBUMIN/GLOBULIN RATIO 0.8 (1.0-2.7); ALKALINE PHOSPHATASE 75 U/L (46-116); ASPARTATE AMINO TRANSFERASE 17 U/L (15-37); BILIRUBIN,TOTAL 0.3 MG/DL (0.2-1.0)
[2018-12-31 14:41] LABS: APPEARANCE,URINE CLEAR; BILIRUBIN, URINE NEGATIVE (NEGATIVE); COLOR,URINE YELLOW; GLUCOSE, URINE (UA) NEGATIVE (NEGATIVE); KETONES,URINE NEGATIVE (NEGATIVE); LEUKOCYTE ESTERASE ,URINE 2+ (NEGATIVE); NITRITE,URINE NEGATIVE (NEGATIVE); PH,URINE 7 (4.5-8.0); PROTEIN,URINE 1+ (NEGATIVE); UROBILINOGEN,URINE NORMAL MG/DL (0.0-1.0)
--- NOTE | 2018-12-31 15:24 | Diagnostic Imaging Report ---
Clinical Indication: Abdominal pain Technique: No oral contrast utilized, per emergency room physician request IV administration nonionic contrast. Venous phase spiral acquisition obtained through the abdomen and pelvis. Multiplanar reconstructions were generated. Total dose length product 1310.78 mGycm. CTDIvol(s) 26.25 mGy. Dose reduction achieved using automated exposure control Comparison: none Findings: Lack of enteric contrast limits assessment of the GI tract. There is marked wall thickening of the distal rectum, with stranding of the perirectal fat and prominent regional lymph nodes. Enlarged nodes are also seen in the mesenteric root, measuring up to 2 cm long axis dimension. There is colonic diverticulosis. No definite evidence of diverticulitis. A metallic density in the proximal transverse colon could represent an endoluminal clip, versus ingested foreign body. The appendix is not definitely identified, but there are no findings to suggest acute appendicitis. No small bowel distention. No free or loculated intraperitoneal gas or fluid. There is a fat-containing ventral hernia just above the umbilicus. There is a small sliding-type hiatal hernia. There is questionable wall thickening of the distal esophagus, and there are prominent paraesophageal lymph nodes. The liver, gallbladder, bile ducts, pancreas, spleen adrenals are all unremarkable. The kidneys demonstrate mild bilateral hydronephrosis. There is a subcentimeter low-attenuation lesion within the right kidney, too small to characterize, most likely benign simple cortical cyst. No further follow-up necessary. There is slight ectasia of the right ureter. The left ureter is nondilated. No definite downstream obstructive lesion demonstrated. The bladder is mildly distended. The uterus is mildly enlarged, contains numerous calcifications consistent with old degenerated fibroids. No adnexal mass. There are bilateral basilar atelectatic changes. The bones demonstrate mild compression fracture deformities of the L2, L3, and L5 vertebral bodies. These are age-indeterminate. Impression: Wall thickening of the rectum with surrounding fat stranding and regional and mesenteric root lymphadenopathy. While possibly on the basis of proctitis, findings are concerning for rectal malignancy. Consider endoscopy for further evaluation Hiatal hernia. Equivocal distal esophageal wall thickening and somewhat prominent surrounding lymph nodes raises concern for esophagitis or, less likely, esophageal neoplasm. Upper endoscopy should likewise be considered. Colonic diverticulosis. No evidence of diverticulitis Age-indeterminate compression fracture deformities of the L2, L3, and L5 vertebral bodies. Consider MRI for better characterization if clinically relevant Mild bilateral hydronephrosis without evidence of downstream obstructive lesion, significance/etiology uncertain. Enlarged uterus with old degenerated calcified fibroids Bilateral basilar pulmonary atelectatic changes Subcentimeter right renal lesion, probably a small cortical cyst. No further follow-up necessary Findings discussed by phone with Dr. Vázquez at the time of interpretation The CT scanner at [facility] is accredited by the [employer] and the scans are performed using protocols designed to limit radiation exposure to as low as reasonably achievable to attain images of sufficient resolution adequate for diagnostic evaluation.
[2018-12-31 16:39] VITALS: BP 137/61
--- NOTE | 2018-12-31 18:14 | History & Physical ---
History and Physical History & Physicial #[id number] Thierry Paul MD Dec 31, 2018 18:14
[2018-12-31] MEDS ORDERED: Morphine Sulfate 4mg/ml Inj (IV USE ONLY) IVP PRN (18:15)
[2018-12-31] MEDS ORDERED: Morphine Sulfate 2mg/ml Inj(IV/IM USE ONLY) IVP PRN (18:15)
[2018-12-31 19:03] VITALS: BP 136/70
[2018-12-31] MEDS ORDERED: D5 1/2NS 1,000 ML IV SCH (19:14)
--- NOTE | 2018-12-31 19:30 | History and Physical Report ---
DATE OF ADMISSION: 12/31/2018 REASON FOR ADMISSION: Abdominal pain. HISTORY OF PRESENT ILLNESS: This is a 83-year-old female with history of appendectomy who was brought in by ambulance from [facility] for abdominal pain that started today. She reports left lower quadrant abdominal pain that started earlier today. She also report having nausea; however, denies any vomiting. She has some substernal chest pain that feels like a burning in someone like heartburn. She took some antacids that did not help much. She had history of hemorrhoids and has had blood in her stools on and off. She also denies having any weight loss. She has never had a colonoscopy. PAST MEDICAL HISTORY: None. PAST SURGICAL HISTORY: Appendectomy. SOCIAL HISTORY: The patient is a former smoker, does not drink alcohol, does not use any drugs. FAMILY HISTORY: Noncontributory. MEDICATIONS: Reviewed in [facility]. REVIEW OF SYSTEMS: A 12-point review of systems negative except for pertinent positives as mentioned above. PHYSICAL EXAMINATION: VITAL SIGNS: Temperature 98.1, pulse 71, respiratory rate 20, blood pressure 129/67, O2 saturation 95% on room air. GENERAL: The patient is in no acute distress. The patient is awake, alert, and oriented x3. HEENT: Normocephalic/atraumatic. NECK: Supple. No JVD. LUNGS: Clear to auscultation bilaterally. No crackles, rhonchi, or rales. CARDIOVASCULAR: Regular rate and rhythm. Normal S1, S2. ABDOMEN: Soft. Left lower quadrant tenderness to palpation. EXTREMITIES: No clubbing, cyanosis, or edema. PSYCHIATRIC: Appropriate mood and affect. NEUROLOGIC: The patient is following commands and is awake. LABORATORY AND DIAGNOSTIC DATA: CBC, white count of 10.5, hemoglobin 13.7, and platelet count 252,000. BMP, sodium 137, potassium 4, chloride 104, CO2 is 24, BUN is 15, creatinine is 1, glucose level 105. Calcium level 9. Alkaline phosphatase 75, ALT 16, AST is 17. CT abdomen and pelvis shows wall thickening of the rectum with surrounding fat stranding and regional mesenteric root lymphadenopathy, findings are concerning for rectal malignancy, hiatal hernia, distal esophageal wall thickening with somewhat prominent surrounding lymph nodes concerning for esophagitis versus esophageal neoplasm. Upper endoscopy per radiologist should be indicated. The patient has colonic diverticulosis. Age-indeterminate compression fractures L2, L3, L5 bilateral hydronephrosis without evidence of obstructive lesion. ASSESSMENT: 1. Left lower quadrant abdominal pain. 2. Rectal wall thickening concerning for rectal cancer. 3. Chest pain likely secondary to acid reflux versus esophagitis as seen on CT. 4. L2, L3 and L5 compression fractures. 5. Mild bilateral hydronephrosis. PLAN: 1. Admit the patient to Med/Surg. 2. Gastrointestinal consult. 3. The patient will need endoscopy and colonoscopy. 4. PPI to be started. 5. The patient had elevated lipase however no epigastric pain on exam. We will keep patient NPO for time being and order ultrasound of the abdomen. 6. IV fluids. 7. DVT prophylaxis. 8. Full code. Thierry Paul MD DR: Angel Luis JOB#: [id number] CC:
[2018-12-31] MEDS ORDERED: Enoxaparin 40mg Inj SUBQ SCH (20:00)
[2018-12-31 20:10] VITALS: BP 148/65
[2018-12-31] MEDS ORDERED: Pantoprazole Inj IVP SCH (21:00)
[2018-12-31] MEDS ORDERED: ACETAMINOPHEN325 M1 ORAL (21:35)
[2018-12-31] MEDS ORDERED: LOVENOX10 M4 SUBQ (21:37)
[2018-12-31] MEDS ORDERED: MORPHINE 22 MG/1 ML IV (21:38)
[2018-12-31] MEDS ORDERED: ZOFRAN 4 MG4 MG/2 ML IV (21:38)
--- NOTE | 2019-01-01 08:58 | Diagnostic Imaging Report ---
Indication: Abdominal pain Technique: Coombs-scale and duplex images of the upper abdomen were obtained Comparison: No comparison sonograms. Reference made to abdomen pelvis CT scan of earlier the same day Findings: Gallbladder demonstrates gallstones. No gallbladder wall thickening or pericholecystic fluid. Sonographic Whitehead's sign is negative. Common bile duct measures 4 mm in diameter. No intrahepatic biliary ductal dilatation. Liver demonstrates somewhat increased echogenicity. Portal vein and hepatic veins are patent. Pancreas is incompletely visualized due to overlying bowel gas, visualized portions are unremarkable. Spleen is unremarkable. Left kidney measures 11 cm in length. Right kidney measures 10.9 cm length. Both kidneys demonstrate normal echogenicity. Both kidneys demonstrate mild hydronephrosis. There is an echogenic focus in the left kidney. Is is probably artifactual, as recent CT does not demonstrate any calculi. Non-aneurysmal abdominal aorta . Impression: Cholelithiasis. Note that this is occult on recent CT scan. Negative for evidence of biliary ductal dilatation Bilateral mild hydronephrosis, also reported on recent CT Increased hepatic echogenicity. Probably does not indicate fatty change, as liver demonstrates normal attenuation on recent CT scan. May indicate other hepatocellular disease or could be artifactual Note incomplete visualization of the pancreas
--- NOTE | 2019-01-01 12:42 | Discharge Summary ---
Discharge Summary Discharge Summary _ DATE OF ADMISSION: 12/31/2018 DATE OF DISCHARGE: 12/31/2018 DISCHARGED BY: Dr. Paul REASON FOR ADMISSION: 83 years old female past medical history of hypertension, COPD, DM , presented to emergency department from the assisted living with complaint of left lower quadrant abdominal pain and chest pain. Chest pain was reported for 1 day , lasted for 4 hours and resolved spontaneously. Patient reported irregular heartbeats. Patient denied taking her medication on a regular basis. Patient reported increased difficulty with passing stool. Upon evaluation vital signs were stable. Laboratory work-up revealed no leukocytosis. Stable hemoglobin and hematocrit, stable electrolytes and renal parameters. Stable LFT. Lipase 895. EKG revealed normal sinus rhythm, no acute ischemic changes. CT of the abdomen and pelvis demonstrated wall thickening of the rectum with surrounding fat stranding and regional and mesenteric root lymphadenopathy. While possibly on the basis of proctitis, findings were concerning for rectal malignancy. Hiatal hernia. Equivocal distal esophageal wall thickening and somewhat prominent surrounding lymph nodes raised concern for esophagitis or, less likely, esophageal neoplasm. Colonic diverticulosis. No evidence of diverticulitis Age-indeterminate compression fracture deformities of the L2, L3, and L5 vertebral bodies. Mild bilateral hydronephrosis without evidence of downstream obstructive lesion, significance/etiology uncertain. Enlarged uterus with old degenerated calcified fibroids Bilateral basilar pulmonary atelectatic changes Subcentimeter right renal lesion, probably a small cortical cyst. Patient admitted to telemetry floor for further management HOSPITAL COURSE: Patient admitted. GI consult was requested. Patient will require endoscopy and colonoscopy. Patient started on PPI. Pain management was addressed. Patient was kept n.p.o. with IV fluid hydration. DVT prophylaxis provided. Later in the day , the bed became available in the contracted hospital.. Patient was transferred to [facility] due to insurance reason. FINAL DIAGNOSES: Left lower quadrant abdominal pain Rectal wall thickening, concerning for rectal cancer Chest pain, likely secondary to acid reflux versus esophagitis, as seen on CT scan L2-L3 and L5 compression fracture Mild bilateral hydronephrosis DISCHARGE MEDICATIONS: See Medication Reconciliation list. DISCHARGE INSTRUCTIONS: Patient was transferred to [facility] due to insurance. I have been assigned to dictate discharge summary for this account. I was not involved in the patient's management. Gaby Richards NP Jan 01, 2019 12:42
== END 2018-12-31 21:45 | disposition short-term general hospital (02) | DRG 392 ==
LOC: EDBD 12:16 → EMR 13:00 → 2E 17:09 → EDBEDREQ 19:11
DX: R10.32 Left lower quadrant pain (principal); S32.028A Other fracture of second lumbar vertebra, initial encounter for closed fracture; S32.038A Other fracture of third lumbar vertebra, initial encounter for closed fracture; S32.058A Other fracture of fifth lumbar vertebra, initial encounter for closed fracture; N13.30 Unspecified hydronephrosis; R93.3 Abnormal findings on diagnostic imaging of other parts of digestive tract; K21.9 Gastro-esophageal reflux disease without esophagitis; K20.9 Esophagitis, unspecified; X58.XXXA Exposure to other specified factors, initial encounter
CPT/HCPCS: 36415; 74177; 76700; 80053; 81003; 83690; 84484; 85025; 85610; 85730; 86850; 86900; 86901; 87081; 93005; 96374; 99285; J2405

== ENCOUNTER 2019-10-17 11:57 | Inpatient (IN) | payer BC, MEDICARE ==
[~2019-10-17] VITALS: Ht 157.5 cm; Wt 65.3 kg
[~2019-10-17 11:57] MED LIST changes: +ACETAMINOPHEN325 M1 ORAL; +LOVENOX10 M4 SUBQ; +MORPHINE 22 MG/1 ML IV; +ZOFRAN 4 MG4 MG/2 ML IV
--- NOTE | 2019-10-17 12:04 | NUR ---
ED Nurse Note: Pt brought in by ambulance from [facility] for possible overdose on morphine. narcan 2mg, zofra 4mg iV was given en route by medic. pt is awake but non verbal at this time.
[2019-10-17 12:07] VITALS: BP 105/65
--- NOTE | 2019-10-17 12:39 | NUR ---
CALLED [facility] REGARDING THE PATIENT . DONT HAVE MOUCH INFORMATION DUE TO SHE JUST GOT THERE YESTERDAY
[2019-10-17] MEDS ORDERED: Naloxone 1mg/ml 2ml IVP ONE (12:45)
--- NOTE | 2019-10-17 13:04 | NUR ---
ED Nurse Note: urine and blood sample collected and sent to lab .
[2019-10-17 13:08] LABS: APPEARANCE,URINE SLIGHTLY CLOUDY; BILIRUBIN, URINE NEGATIVE (NEGATIVE); COLOR,URINE AMBER; GLUCOSE, URINE (UA) NEGATIVE (NEGATIVE); KETONES,URINE NEGATIVE (NEGATIVE); LEUKOCYTE ESTERASE ,URINE 3+ (NEGATIVE); NITRITE,URINE NEGATIVE (NEGATIVE); PH,URINE 5 (4.5-8.0); PROTEIN,URINE 1+ (NEGATIVE); UROBILINOGEN,URINE NORMAL MG/DL (0.0-1.0)
[2019-10-17 13:12] LABS: BASOPHILS % (AUTO) 1.1 % (0.0-2.0); EOSINOPHILS % (AUTO) 0.6 % (0.0-3.0); HEMATOCRIT 38.4 % (37.0-47.0); HEMOGLOBIN 13.7 G/DL (12.0-16.0); LYMPHOCYTES % (AUTO) 6.6 % (20.0-45.0); MEAN CORPUSCULAR VOLUME 89 FL (80-99); MONOCYTES % (AUTO) 8.4 % (1.0-10.0); NEUTROPHILS % (AUTO) 83.4 % (45.0-75.0); PLATELET COUNT 325 K/UL (150-450); RED BLOOD COUNT 4.31 M/UL (4.20-5.40); RED CELL DISTRIBUTION WIDTH 12.2 % (11.6-14.8); WHITE BLOOD COUNT 14.4 K/UL (4.8-10.8)
[2019-10-17 13:20] LABS: INR 1.1 (0.9-1.1)
[2019-10-17 13:22] LABS: ANION GAP 14 mmol/L (5-15); BLOOD UREA NITROGEN 77 mg/dL (7-18); CALCIUM 8.8 MG/DL (8.5-10.1); CARBON DIOXIDE 23 MMOL/L (21-32); CHLORIDE 94 MMOL/L (98-107); CREATININE 1.6 MG/DL (0.55-1.30); POTASSIUM 3.9 MMOL/L (3.5-5.1); SODIUM 131 MMOL/L (136-145)
[2019-10-17 13:26] LABS: ALANINE AMINOTRANSFERASE 74 U/L (12-78); ALBUMIN 2.8 G/DL (3.4-5.0); ALBUMIN/GLOBULIN RATIO 0.6 (1.0-2.7); ALKALINE PHOSPHATASE 174 U/L (46-116); ASPARTATE AMINO TRANSFERASE 38 U/L (15-37); BILIRUBIN,TOTAL 0.7 MG/DL (0.2-1.0)
--- NOTE | 2019-10-17 13:58 | Emergency Room Report ---
History of Present Illness General Chief Complaint: Overdose Source: EMS Present Illness HPI Patient was sent to the emergency room with possible over ingestion of morphine report was made for altered mental status Upon arrival the patient herself is not able to provide any input History of present illness is significantly limited patient's boarding care facility [facility] contacted They also have very limited information and not able to give any family or any other contacts Patient was reported to have transferred there from [facility] This facility was contacted at [phone] They also report that they have no further information and since the patient has been discharged we need to proceed through medical records And would not provide any further contact information After several hours in the hospital the case management has not contacted us give significant information including the patient having recent ileostomy Recent surgery Patient was also documented to have been given morphine However the timing and the dose is still unclear Patient is also under palliative care Allergies: Coded Allergies: ASPIRIN (Verified Allergy, Intermediate, 06/25/17) COVID-19 Screening Contact w/high risk pt: No Recent Travel to affected area: No Experienced COVID-19 symptoms?: No COVID-19 Testing performed PRODUCTION ENGINEER TRACK: No Patient History Limited by: medical condition Now: No Reviewed Nursing Documentation: PMH: Agreed; PSxH: Agreed Nursing Documentation-PMH Past Medical History: No History, Except For Hx Hypertension: No Hx COPD: Yes Hx Diabetes: No Hx Cancer: No Hx Gastrointestinal Problems: No Hx Dialysis: No Hx Neurological Problems: No Hx Cerebrovascular Accident: No Hx Transient Ischemic Attacks: No Hx Dementia: No Hx Alzheimer's Disease: No Hx Parkinson's Disease: No Hx Meningitis: No Hx Encephalitis: No Hx Seizures: No Hx Epilepsy: No Hx Multiple Sclerosis: No Hx Cerebral Palsy: No Hx Amyotrophic Lat Sclerosis: No Hx [place] Syndrome: No Hx Paralysis: No Hx Peripheral Neuropathy: No Hx Spinal Cord Injury: No Hx Head Trauma: No Hx Traumatic Brain Injury: No Hx Memory Loss: No Hx Concentration Difficulty: No Hx Speech Problem: No Hx Tremors: No Hx Vertigo: No Hx Dizziness: No Hx Syncope: No Hx Headaches: No Hx Aphasia: No Hx Dysphasia: No Hx Numbness: No Hx Weakness: Yes Hx Fatigue: No Hx Neurologic Surgery: No Hx Brain Shunt: No Review of Systems All Other Systems: limited - Other than the ones mentioned in the history of present illness all others are reviewed however they do stay limited due to the patient's mental status Physical Exam Vital Signs Date Time Temp Pulse Resp B/P (MAP) Pulse Ox O2 Delivery O2 Flow Rate FiO2 10/17/19 11:52 98.1 72 16 114/68 (83) 97 Room Air Sp02 EP Interpretation: reviewed, normal General Appearance: Stupor - Patient has decreased GCS is somewhat responsive to physical stimuli, however not verbal, Head: normocephalic, atraumatic Eyes: bilateral eye other - Is a small approximately 2 mm minimal reaction ENT: normal pharynx Neck: supple Respiratory: lungs clear, no respiratory distress, no retraction, no accessory muscle use Cardiovascular #1: regular rate, rhythm Gastrointestinal: non tender, soft Musculoskeletal: other - Patient is withdrawing to physical stimuli however does not follow commands appropriately Neurologic: other - Significant decrease in GCS, patient withdraws to physical stimuli remains nonverbal, Skin: no rash Lymphatic: no adenopathy Procedures Critical Care Time Critical Care Time 50 minutes for multiple re-evaluations concern and presentation for neurological disease cardiopulmonary arrest possible respiratory failure not including any procedural time Medical Decision Making Diagnostic Impression: Primary Impression: Drug overdose Additional Impressions: Encephalopathy UTI (urinary tract infection) ER Course Patient is a fairly complex patient with multiple differential to consideration including but not limited to cardiac cardiopulmonary and vascular emergencies Other differential such as neurological, infectious process also entertained CT head shows questionable area of subacute infarct however this is very questionable Patient's urine sample does show UTI and white blood cell count is elevated Patient initiated on antibiotics and IV hydration She is allergic to aspirin therefore this is held Patient's last known well is unknown And patient does not meet criteria for any thrombo- lytic therapy Patient was given Narcan and there is response noted, with the patient opening her eyes and more arousable And admitted for further inpatient care Labs Test 10/17/19 12:49 White Blood Count 14.4 K/UL (4.8-10.8) Red Blood Count 4.31 M/UL (4.20-5.40) Hemoglobin 13.7 G/DL (12.0-16.0) Hematocrit 38.4 % (37.0-47.0) Mean Corpuscular Volume 89 FL (80-99) Mean Corpuscular Hemoglobin 31.8 PG (27.0-31.0) Mean Corpuscular Hemoglobin Concent 35.6 G/DL (32.0-36.0) Red Cell Distribution Width 12.2 % (11.6-14.8) Platelet Count 325 K/UL (150-450) Mean Platelet Volume 6.2 FL (6.5-10.1) Neutrophils (%) (Auto) 83.4 % (45.0-75.0) Lymphocytes (%) (Auto) 6.6 % (20.0-45.0) Monocytes (%) (Auto) 8.4 % (1.0-10.0) Eosinophils (%) (Auto) 0.6 % (0.0-3.0) Basophils (%) (Auto) 1.1 % (0.0-2.0) Prothrombin Time 11.6 SEC (9.30-11.50) Prothromb Time International Ratio 1.1 (0.9-1.1) Activated Partial Thromboplast Time 27 SEC (23-33) Urine Color Dawna Urine Appearance Slightly cloudy Urine pH 5 (4.5-8.0) Urine Specific [place] 1.020 (1.005-1.035) Urine Protein 1+ (NEGATIVE) Urine Glucose (UA) Negative (NEGATIVE) Urine Ketones Negative (NEGATIVE) Urine Blood 1+ (NEGATIVE) Urine Nitrite Negative (NEGATIVE) Urine Bilirubin Negative (NEGATIVE) Urine Ictotest Negative (NEGATIVE) Urine Urobilinogen Normal MG/DL (0.0-1.0) Urine Leukocyte Esterase 3+ (NEGATIVE) Urine RBC 0-2 /HPF (0 - 2) Urine WBC 10-15 /HPF (0 - 2) Urine Squamous Epithelial Cells Moderate /LPF (NONE/OCC) Urine Bacteria Few /HPF (NONE) Urine Mucus Few /LPF (NONE/OCC) Sodium Level 131 MMOL/L (136-145) Potassium Level 3.9 MMOL/L (3.5-5.1) Chloride Level 94 MMOL/L (98-107) Carbon Dioxide Level 23 MMOL/L (21-32) Anion Gap 14 mmol/L (5-15) Blood Urea Nitrogen 77 mg/dL (7-18) Creatinine 1.6 MG/DL (0.55-1.30) Estimat Glomerular Filtration Rate 30.8 mL/min (>60) Glucose Level 143 MG/DL (74-106) Calcium Level 8.8 MG/DL (8.5-10.1) Total Bilirubin 0.7 MG/DL (0.2-1.0) Aspartate Amino Transf (AST/SGOT) 38 U/L (15-37) Alanine Aminotransferase (ALT/SGPT) 74 U/L (12-78) Alkaline Phosphatase 174 U/L (46-116) Troponin I 0.015 ng/mL (0.000-0.056) Total Protein 7.5 G/DL (6.4-8.2) Albumin 2.8 G/DL (3.4-5.0) Globulin 4.7 g/dL Albumin/Globulin Ratio 0.6 (1.0-2.7) Urine Opiates Screen Positive (NEGATIVE) Urine Barbiturates Screen Negative (NEGATIVE) Phencyclidine (PCP) Screen Negative (NEGATIVE) Urine Amphetamines Screen Negative (NEGATIVE) Urine Benzodiazepines Screen Positive (NEGATIVE) Urine Cocaine Screen Negative (NEGATIVE) Urine Marijuana (THC) Screen Negative (NEGATIVE) Rhythm Strip Diag. Results EP Interpretation: yes Rate: 77 Rhythm: NSR, no PVC's, no ectopy Chest X-Ray Diagnostic Results Chest X-Ray Diagnostic Results : Chest X-Ray Ordered: Yes # of Views/Limited/Complete: 1 View Indication: Chest Pain EP Interpretation: Yes Interpretation: no consolidation, no effusion, no pneumothorax Impression: No acute disease Electronically Signed by: Iwona Giron DO CT/MRI/US Diagnostic Results CT/MRI/US Diagnostic Results : Impression CT headImpression: Focal low attenuation in the left middleton radiata and lentiform nucleus, could represent a subacute lacunar infarct. Consider MRI to clarify if clinically indicated. Negative for acute intracranial bleed or mass effect Chronic and age-related changes, as described Last Vital Signs Date Time Temp Pulse Resp B/P (MAP) Pulse Ox O2 Delivery O2 Flow Rate FiO2 10/17/19 12:07 98.1 75 16 105/65 99 Room Air Status: improved Disposition: ADMITTED INPATIENT Condition: Critical Referrals: NON PHYSICIAN (PCP) Iwona Giron DO Oct 17, 2019 13:58
[2019-10-17] MEDS ORDERED: MS CONTIN15 MG ORAL (14:06)
[2019-10-17 14:15] VITALS: BP 110/63
[2019-10-17] MEDS ORDERED: cefTRIAXone 1 GM in NS 55 ML IVPB ONE (14:15)
--- NOTE | 2019-10-17 14:56 | Diagnostic Imaging Report ---
Indications: Altered mental status Technique: Spiral acquisitions obtained through the brain. Angled axial and coronal 5 x 5 mm slices were reconstructed. Total dose length product 992 mGycm. CTDI vol(s) 53 mGy. Dose reduction achieved using automated exposure control Comparison: None. Findings: Small area of faint low-attenuation in the left middleton radiata extending into the lentiform nucleus on the left is noted. No acute intracranial hemorrhage or edema. No mass effect or midline shift. There is age-related enlargement of the ventricles and extra axial CSF spaces. There is periventricular deep white matter low-attenuation, consistent with chronic microvascular ischemic changes. The calvarium is intact. The mastoids are clear. The sinuses are clear. The visualized orbits are unremarkable. Impression: Focal low attenuation in the left middleton radiata and lentiform nucleus, could represent a subacute lacunar infarct. Consider MRI to clarify if clinically indicated. Negative for acute intracranial bleed or mass effect Chronic and age-related changes, as described Critical value findings phoned to Dr. Giron in the emergency room at the time of interpretation The CT scanner at [facility] is accredited by the [employer] and the scans are performed using protocols designed to limit radiation exposure to as low as reasonably achievable to attain images of sufficient resolution adequate for diagnostic evaluation.
--- NOTE | 2019-10-17 15:17 | NUR ---
CASE MANAGEMENT: INITIAL REVIEW 10/17/2019 84 YO F LUIS A FROM NURSING HOME CC: OVERDOSE OF MORPHINE PMHx: COPD SI:ENCEPHALOPATHY T 98.1 HR 72 RR 16 B/P 114/68 SATS 97% ON RA LABS: WBC 14.4 NA 131 CL 94 BUN 77 CR 1.6 GLU 143 AST 38 ALP 174 IS: NS BOLUS X2 NALOXONE IV X1 CEFTRIAXONE IV X1 CT HEAD Impression: Focal low attenuation in the left middleton radiata and lentiform nucleus, could represent a subacute lacunar infarct. Consider MRI to clarify if clinically indicated. Negative for acute intracranial bleed or mass effect PATIENT ADMITTED TO TELE 10/17/2019 @ 8892 DCP: B&C Addendum: 10/17/19 at 1530 by Radha Nuñez CM INTERQUAL MET
--- NOTE | 2019-10-17 15:43 | Diagnostic Imaging Report ---
Indication: Chest pain Technique: One view of the chest Comparison: 07/02/2017 Findings: Linear band at the left lung base is unchanged, probably an area of scarring. There appears to be some peripheral scarring in the right midlung. The lungs and pleural spaces are otherwise clear. The heart size is normal Impression: No acute process
--- NOTE | 2019-10-17 15:53 | NUR ---
ED Nurse Note: Report given to IZA priest. pt taken up to room 212 accompanied byt ALKA samuels and RN in stable condition via guradniella with cardiac monitoring. Pt has no belongings.
--- NOTE | 2019-10-17 15:55 | NUR ---
NURSE NOTES: pt admitted from ED in stable condition. pt responds to painful stimuli, but not open her eyes or answer any question. pt on alarm security or surveillance monitor no signs of cardiac or respiratory distress at this time. pt has no belongings. Per ED RN, unable to reconcile meds, Monalisa Cerrato does not know which meds pt is taking; pt admitted to their facility one day ago. Bed alarm on, call light within reach, bed in lowest position and locked. Will continue to monitor. called Doctor Chon for orders.
[2019-10-17 16:00] VITALS: BP 114/93
--- NOTE | 2019-10-17 17:01 | NUR ---
AIRCRAFT INSPECTION RECORD CLERK NOTE SW received a consult to assess suicide/overdose/psych needs. Pt does not answer any questions at this time. The consult will be reassigned to TORIE Moore to evaluate pt when pt becomes stable to assess.
--- NOTE | 2019-10-17 17:10 | NUR ---
CASE MANAGEMENT: NOTE CM ORDER FOR PLACEMENT NOTED. WEEKEND CM TO F/U
[2019-10-17] MEDS ORDERED: NS w/KCl 20mEq 1000ml 1,000 ML IV SCH (18:00)
[2019-10-17] MEDS: NS w/KCl 20mEq 1000ml 1,000 ML IV SCH (18:03)
--- NOTE | 2019-10-17 19:40 | NUR ---
NURSE NOTES: Received report from Leonarda Means RN. Pt is in bed, resting comfortably, appears to be asleep. No signs or symptoms of pain or distress noted at this time. Bed in lowest position, bed alarm armed, call light within reach. Will continue plan of care and close monitoring.
[2019-10-17 20:00] VITALS: BP 132/78
--- NOTE | 2019-10-17 20:15 | NUR ---
HAND-OFF: Report given to Mendez/rn pt in stable condition.
[2019-10-17] MEDS: Heparin 5000 units/ml inj SUBQ SCH (21:00)
[2019-10-18] VITALS: BP 123/81
--- NOTE | 2019-10-18 00:30 | History and Physical Report ---
DATE OF ADMISSION: 10/17/2019 This is an 84-year-old female transferred from a [facility] in [place], where she had been admitted in the last day or so. Apparently, she overdosed on morphine tablets. No further information is known. Family contact was attempted, but not made. Facility was contacted, but no information has been received so far. The patient was brought by paramedics for altered mental status. She received Narcan with improvement of status. Currently, she is breathing on her own and is comfortable. The patient is very somnolent and we will provide further history. PAST HISTORY: Notable for COPD. It is unclear why she is taking morphine. SURGERIES: None reported. REVIEW OF SYSTEMS: Not obtainable. PHYSICAL EXAMINATION: GENERAL: An 84-year-old female. HEENT: Unremarkable. CHEST: Decreased breath sounds bilaterally. Normal heart sounds. ABDOMEN: Soft. EXTREMITIES: There is no edema. NEUROLOGIC: The patient is awake but somnolent. The exam is nonfocal. VITAL SIGNS: Blood pressure 112/50, heart rate 74, respirations 18, pulse 98% on room air. She is afebrile. LABORATORY DATA: Lab testing shows white count of 14,000, otherwise normal CBC and BMP. Sodium is 131, creatinine 1.6, troponin is negative. IMAGING STUDIES: X-ray of chest is negative for any acute process. CT of head was obtained, which is also negative for any acute pathology except for the possibility of a subacute lacunar infarct in the left side. IMPRESSION: 1. Possible CVA. 2. . 3. Morphine overdose. 4. Rule out UTI. 5. Hypertension. DISCUSSION: Admit to the hospital. We will try to obtain the patient's list of home medications. We will continue home medication except narcotics and empiric antibiotics. We will consult ID, Neurology, and Cardiology. We will follow. Lencho Givens M.D. DR: LIZETH JOB#: [id number] CC:
[2019-10-18 04:00] VITALS: BP 139/92
[2019-10-18] MEDS: NS w/KCl 20mEq 1000ml 1,000 ML IV SCH ×2 (04:00→14:26)
--- NOTE | 2019-10-18 04:45 | Consultation ---
DATE OF CONSULTATION: 10/17/2019 CONSULTING PHYSICIAN: Thierry Lagos M.D. REQUESTING PHYSICIAN: Lencho Givens M.D. REASON FOR CONSULTATION: Possible morphine overdose. HISTORY OF PRESENT ILLNESS: This is a 84-year-old female who resides in an assisted living facility. She was sent to the emergency room for altered mentation and possible over ingestion of morphine. There is very limited data from the assisted living facility regarding any additional information or medical history. The patient has been withdrawn and confused. In the emergency room, there was no sign of hemodynamic or respiratory compromise. PAST MEDICAL HISTORY: Includes history of pancreatitis, prior appendectomy, diverticulosis, history of compression fracture, osteoporosis, degenerative disk disease, history of rectal wall thickening, and uterine fibroid. ALLERGIES: Aspirin. MEDICATIONS: Reviewed. SOCIAL HISTORY: Prior smoker. No alcohol or substance abuse. REVIEW OF SYSTEMS: Presently not obtainable. It should be noted in 2019, she was noted to have an abnormal CAT scan with rectal wall thickening and was transferred to a higher level of care for completion of GI workup. We do not have any data at this time as to the results of that workup. PHYSICAL EXAMINATION: VITAL SIGNS: Blood pressure 110/63, pulse 80, respirations 18, and afebrile. HEENT: Conjunctivae pink. Oropharynx clear. Mucous membranes dry. NECK: Supple. LUNGS: Clear. BREASTS: No breast masses. CARDIAC: Regular. Normal S1 and S2 with 1/6 systolic murmur at base. ABDOMEN: Soft. No focal tenderness, guarding, or rebound. EXTREMITIES: Without edema. LABORATORY DATA: White count 14.4 and hemoglobin 13.7. Urinalysis with 10 to 15 white cells and few bacteria. Sodium 131, potassium 3.9, chloride 94, bicarb 22, BUN 77, creatinine 1.6, glucose 143, and albumin 2.8. CT brain revealed possible subacute infarction. IMPRESSION: 1. Metabolic encephalopathy, toxic encephalopathy. 2. Hyponatremia. 3. Possible subacute CVA. 4. Acute on chronic renal failure. 5. Moderate protein calorie malnutrition. 6. Leukocytosis. 7. Urinary tract infection. 8. Possible sepsis. 9. Possible history of rectal cancer. 10. Prior compression fractures. 11. Diverticular disease. 12. Morphine overdose unintentionally. PLAN: 1. Antimicrobials. 2. Saline hydration. 3. DVT prophylaxis. 4. Hold all sedation and pain medication. 5. Monitor volume status and cardiorenal function. 6. Protein supplement. 7. Attempt to obtain outpatient records. 8. 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 Thierry Lagos M.D. DR: SUSANNA JOB#: [id number] CC: JOSE
--- NOTE | 2019-10-18 07:38 | NUR ---
HAND-OFF: Report given to Lynne Booth RN. Pt in stable condition. Plan of care endorsed.
--- NOTE | 2019-10-18 07:39 | NUR ---
NURSE NOTES: Received patient in bed asleep. IV out, for reinsertion as per night RN. No SOB or acute distress. HOB elevated. Bed locked in lowest position. Call light within reach. Bed alarm on. Will continue frequent rounding and plan of care.
[2019-10-18 08:00] VITALS: BP 132/66
--- NOTE | 2019-10-18 08:34 | Pulmonology Progress Note ---
Subjective Interval Events: More awake Constitutional: Reports: no symptoms HEENT: Repors: no symptoms Respiratory: Reports: no symptoms Cardiovascular: Reports: no symptoms Gastrointestinal/Abdominal: Reports: no symptoms Genitourinary: Reports: no symptoms Allergies: Coded Allergies: ASPIRIN (Verified Allergy, Intermediate, 06/25/17) Objective Last 24 Hour Vital Signs Date Time Temp Pulse Resp B/P (MAP) Pulse Ox O2 Delivery O2 Flow Rate FiO2 10/18/19 08:00 96.4 96 18 132/66 (88) 96 10/18/19 04:00 97.9 81 20 139/92 (108) 96 10/18/19 04:00 71 10/18/19 00:00 98.2 77 19 123/81 (95) 98 10/18/19 00:00 68 10/17/19 21:00 Nasal Cannula 3.0 10/17/19 20:00 97.1 74 18 132/78 (96) 98 10/17/19 16:00 98.5 80 19 114/93 (100) 100 10/17/19 15:53 98.0 76 16 112/58 98 Room Air 10/17/19 14:15 98.0 80 18 110/63 98 Room Air 10/17/19 12:07 98.1 75 16 105/65 99 Room Air 10/17/19 12:07 75 16 Room Air 10/17/19 11:52 98.1 72 16 114/68 (83) 97 Room Air Intake and Output 10/17/19 10/18/19 19:00 07:00 Intake Total 3055 ml Balance 3055 ml Intake Oral 0 ml IV Total 3055 ml # Voids 1 3 # Bowel Movements 2 1 General Appearance: no acute distress HEENT: normocephalic Respiratory: chest wall non-tender, lungs clear Cardiovascular: normal peripheral pulses, normal rate Abdomen: normal bowel sounds Extremities: no cyanosis Microbiology Date/Time Source Procedure Growth Status 10/17/19 12:49 Urine,Clean Catch Urine Culture - Preliminary NO GROWTH Resulted 10/17/19 14:10 Rectum Received Laboratory Tests 10/17/19 12:49: White Blood Count 14.4H, Red Blood Count 4.31, Hemoglobin 13.7, Hematocrit 38.4 , Mean Corpuscular Volume 89, Mean Corpuscular Hemoglobin 31.8H, Mean Corpuscular Hemoglobin Concent 35.6, Red Cell Distribution Width 12.2, Platelet Count 325, Mean Platelet Volume 6.2L, Neutrophils (%) (Auto) 83.4H, Lymphocytes (%) (Auto) 6.6L, Monocytes (%) (Auto) 8.4, Eosinophils (%) (Auto) 0.6, Basophils (%) (Auto) 1.1, Prothrombin Time 11.6H, Prothromb Time International Ratio 1.1, Activated Partial Thromboplast Time 27, Urine Color Dawna, Urine Appearance Slightly cloudy, Urine pH 5, Urine Specific [place] 1.020, Urine Protein 1+H, Urine Glucose (UA) Negative, Urine Ketones Negative, Urine Blood 1+ H, Urine Nitrite Negative, Urine Bilirubin Negative, Urine Ictotest Negative, Urine Urobilinogen Normal, Urine Leukocyte Esterase 3+H, Urine RBC 0-2, Urine WBC 10-15H, Urine Squamous Epithelial Cells ModerateH, Urine Bacteria Few, Urine Mucus FewH, Sodium Level 131L, Potassium Level 3.9, Chloride Level 94L, Carbon Dioxide Level 23, Anion Gap 14, Blood Urea Nitrogen 77H, Creatinine 1.6H , Estimat Glomerular Filtration Rate 30.8, Glucose Level 143H, Calcium Level 8.8 , Total Bilirubin 0.7, Aspartate Amino Transf (AST/SGOT) 38H, Alanine Aminotransferase (ALT/SGPT) 74, Alkaline Phosphatase 174H, Troponin I 0.015, Total Protein 7.5, Albumin 2.8L, Globulin 4.7, Albumin/Globulin Ratio 0.6L, Urine Opiates Screen PositiveH, Urine Barbiturates Screen Negative, Phencyclidine (PCP) Screen Negative, Urine Amphetamines Screen Negative, Urine Benzodiazepines Screen PositiveH, Urine Cocaine Screen Negative, Urine Marijuana (THC) Screen Negative 10/18/19 08:00: White Blood Count [Pending], Red Blood Count [Pending], Hemoglobin [Pending], Hematocrit [Pending], Mean Corpuscular Volume [Pending], Mean Corpuscular Hemoglobin [Pending], Mean Corpuscular Hemoglobin Concent [Pending], Red Cell Distribution Width [Pending], Platelet Count [Pending], Mean Platelet Volume [ Pending], Neutrophils (%) (Auto) [Pending], Lymphocytes (%) (Auto) [Pending], Monocytes (%) (Auto) [Pending], Eosinophils (%) (Auto) [Pending], Basophils (%) (Auto) [Pending], Sodium Level [Pending], Potassium Level [Pending], Chloride Level [Pending], Carbon Dioxide Level [Pending], Blood Urea Nitrogen [Pending], Creatinine [Pending], Estimat Glomerular Filtration Rate [Pending], Glucose Level [Pending], Calcium Level [Pending] Current Medications Medications (Trade) Dose Ordered Sig/Beto Route PRN Reason Start Time Stop Time Status Last Admin Dose Admin Acetaminophen (Tylenol) 650 mg Q4H PRN ORAL Mild Pain (Pain Scale 1-3) 10/17/19 17:00 11/16/19 16:59 Ceftriaxone Sodium 1 gm/ Dextrose 55 ml @ 110 mls/hr Q24H IVPB 10/18/19 09:00 10/25/19 08:59 Dextrose (Dextrose 50%) 25 ml Q30M PRN IV Hypoglycemia 10/17/19 17:00 01/15/20 16:59 Dextrose (Dextrose 50%) 50 ml Q30M PRN IV Hypoglycemia 10/17/19 17:00 01/15/20 16:59 Famotidine (Pepcid) 20 mg BID ORAL 10/17/19 18:00 01/15/20 17:59 10/17/19 17:57 Heparin Sodium (Porcine) (Heparin 5000 units/ml) 5,000 units EVERY 12 HOURS SUBQ 10/17/19 21:00 12/01/19 20:59 10/17/19 21:00 Potassium Chloride/Sodium Chloride 1,000 ml @ 100 mls/hr Q10H IV 10/17/19 18:00 11/16/19 17:59 10/17/19 18:03 Assessment/Plan Assessment/Plan IMPRESSION: 1. Possible CVA. 2. History of rectal wall thickening 3. Morphine overdose. Suspect unintentional 4. Rule out UTI. 5. Hypertension. DISCUSSION: I will try to obtain the patient's list of home medications. Continue home medication except narcotics Add empiric antibiotics. I will follow. Psych eval requested. Lencho Givens MD Oct 18, 2019 08:34
[2019-10-18] MEDS ORDERED: Aspirin Baby 81mg ORAL SCH (09:00)
[2019-10-18 09:18] LABS: BASOPHILS % (AUTO) 0.9 % (0.0-2.0); EOSINOPHILS % (AUTO) 0.3 % (0.0-3.0); HEMATOCRIT 40.8 % (37.0-47.0); HEMOGLOBIN 14.3 G/DL (12.0-16.0); MEAN CORPUSCULAR VOLUME 90 FL (80-99); MONOCYTES % (AUTO) 11.2 % (1.0-10.0); NEUTROPHILS % (AUTO) 78.6 % (45.0-75.0); PLATELET COUNT 301 K/UL (150-450); RED BLOOD COUNT 4.56 M/UL (4.20-5.40); RED CELL DISTRIBUTION WIDTH 12.5 % (11.6-14.8); WHITE BLOOD COUNT 6.8 K/UL (4.8-10.8)
--- NOTE | 2019-10-18 10:00 | NUR ---
NURSE NOTES: IV line reinserted to left wrist using g20.
[2019-10-18] MEDS: Heparin 5000 units/ml inj SUBQ SCH ×2 (10:06→20:46)
[2019-10-18] MEDS: cefTRIAXone 1 GM in D5W 55 ML IVPB SCH (10:07)
--- NOTE | 2019-10-18 10:47 | NUR ---
CASE MANAGEMENT:REVIEW SI;MORPHINE OVERDOSE. ENCEPHALOPATHY. AC/CHR RENAL FAILURE. UTI. 96.4 96 20 139/92 96% 3L NC IS;ROCEPHIN IV QD HEPARIN SUBQ Q12 HRS PEPCID PO BID KCL/NS @ 100 ML/HR TELE STATUS DCP;FROM [facility] PLAN;PSYCH EVAL
[2019-10-18 11:24] LABS: ANION GAP 12 mmol/L (5-15); BLOOD UREA NITROGEN 75 mg/dL (7-18); CALCIUM 9.3 MG/DL (8.5-10.1); CARBON DIOXIDE 25 MMOL/L (21-32); CHLORIDE 100 MMOL/L (98-107); CREATININE 1.2 MG/DL (0.55-1.30); POTASSIUM 4.3 MMOL/L (3.5-5.1); SODIUM 137 MMOL/L (136-145)
[2019-10-18 12:00] VITALS: BP 123/70
[2019-10-18 16:00] VITALS: BP 134/68
--- NOTE | 2019-10-18 16:18 | NUR ---
PT Note PT yasmin completed, treatment initiated. Patient has muscle weakness and decreased postural stability, requiring assist in mobility. Patient needs PT to increase her muscle strength and balance to improve her functional mobility and gait to enable her to return to [facility]. Addendum: 10/18/19 at 1619 by RAUL DURBIN PT Amended: Links added.
--- NOTE | 2019-10-18 19:55 | NUR ---
NURSE NOTES: Received hand-off report from IZA Batista. Received patient lying in bed, semi-fowlers position. Left IV 20g intact, patent, and flushing well, no complaints of pain or tenderness. Prescribed fluids running at prescribed rate. Patient is in stable condition, alert and oriented x1, cardiac leads in place and ekg monitor tech working, no signs of acute distress noted. Bed in low and locked position, call light within reach. Repositioned for comfort.
--- NOTE | 2019-10-18 19:55 | NUR ---
HAND-OFF: Report given to Xiomara COUCH and Iris COUCH.
[2019-10-18 20:00] VITALS: BP 122/52
[2019-10-19] VITALS (8 sets, daily range): BP systolic 106–139; BP diastolic 58–71
[2019-10-19] MEDS: NS w/KCl 20mEq 1000ml 1,000 ML IV SCH ×2 (00:07→17:17)
[2019-10-19] MEDS ORDERED: NS w/KCl 20mEq 1000ml 1,000 ML IV SCH (01:00)
--- NOTE | 2019-10-19 03:30 | NUR ---
NURSE NOTES: On venturi mask 14L oxygen, SpO2: 95%, RR: 25, BP: 146 / 85, HR: 103; no apparent signs of acute distress. Addendum: 10/19/19 at 0737 by Norberto Guzman RN Charted on wrong patient.
--- NOTE | 2019-10-19 04:30 | Progress Note ---
DATE: 10/18/2019 CARDIOLOGY PROGRESS NOTE SUBJECTIVE: The patient has no distress. She is an unreliable historian due to baseline confusion. PHYSICAL EXAMINATION: VITAL SIGNS: Blood pressure 132/66, heart rate 71 to 96, respiratory rate 18 to 20. She is afebrile. Monitored rhythm sinus with no significant ectopy. LUNGS: Bilateral breath sounds with no wheezing or rales. Chest wall is nontender. CARDIAC: Regular. Normal S1, S2 with a 1/6 systolic murmur at apex. ABDOMEN: Soft. EXTREMITIES: No edema. LABORATORY DATA: White count 6.8, hemoglobin 14.3. Sodium 137, potassium 4.3, bicarb 25, BUN 75, creatinine 1.2. Glucose 137. IMPRESSION: 1. Possible morphine overdose, now resolved. 2. Subacute cerebrovascular accident. 3. Acute kidney injury with prerenal azotemia, improving with hydration. 4. Moderate protein-calorie malnutrition, still needs additional protein intake. 5. Hypertensive heart disease with controlled blood pressure. 6. Urinary tract infection. 7. Metabolic and toxic encephalopathies. 8. Resoved dehydration and hyponatremia. PLAN: 1. Adjust IV fluids. 2. Await final cultures. 3. Empiric antimicrobials. 4. 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 5. DVT prophylaxis. 6. Consider MRI brain. Thierry Lagos M.D. DR: NEWTON JOB#: [id number] CC: JOSE
--- NOTE | 2019-10-19 04:45 | Consultation ---
DATE OF CONSULTATION: 10/18/2019 CONSULTING PHYSICIAN: Bobby Mcarthur MD. HISTORY OF PRESENT ILLNESS: Patient is an 84-year-old female with a history of multiple medical issues including COPD, GERD, acute respiratory failure who was admitted to the hospital due to an overdose. Patient overdosed on Motrin tablets. During the evaluation, patient was irritable and was uncooperative with the evaluation. She keeps her eyes closed. However, the nurse in the room was stating that the patient was verbal a minute before the evaluation. Patient has been confused, disoriented, waxing and waning consciousness. PAST PSYCHIATRIC HISTORY: Significant for depression. No other history was obtainable. PAST MEDICAL HISTORY: COPD. ALLERGIES: Aspirin. SUBSTANCE ABUSE HISTORY: Unknown. However, patient is taking Motrin at home. MENTAL STATUS EXAMINATION: Patient is awake, disoriented. Mood is irritable. Affect is flat. Thought process, there is a paucity of thought content. Thought content, no suicidal or homicidal ideation. Cognition is impaired. Insight and judgment is impaired. ASSESSMENT: [place] I Acute encephalopathy. [place] II Deferred. [place] III As above. [place] IV Low. [place] V 20. PLAN: 1. We are starting the patient on Zyprexa p.r.n. only at nighttime. 2. She may benefit from other antidepressant. 3. We will reassess. Bobby Mcarthur M.D. DR: LOUIS JOB#: [id number] CC: JOSE
--- NOTE | 2019-10-19 07:37 | NUR ---
HAND-OFF: Report given to IZA Owusu. Plan of care endorsed.
[2019-10-19 07:44] LABS: EOSINOPHILS % (AUTO) 0.5 % (0.0-3.0); HEMATOCRIT 36.1 % (37.0-47.0); HEMOGLOBIN 12.7 G/DL (12.0-16.0); LYMPHOCYTES % (AUTO) 10.4 % (20.0-45.0); MEAN CORPUSCULAR VOLUME 90 FL (80-99); MONOCYTES % (AUTO) 8.9 % (1.0-10.0); NEUTROPHILS % (AUTO) 79.1 % (45.0-75.0); PLATELET COUNT 307 K/UL (150-450); RED BLOOD COUNT 4.02 M/UL (4.20-5.40); RED CELL DISTRIBUTION WIDTH 12.8 % (11.6-14.8); WHITE BLOOD COUNT 6.6 K/UL (4.8-10.8)
--- NOTE | 2019-10-19 07:55 | NUR ---
NURSE NOTES: Recieved report from IZA Solano. Resident is in bed awake and alert oriented x1 to 2 periods of forgetfulness. Denies pain and is able to verbalize some needs. No SOB or acute distress and on room air. Bed is at lowest position with siderails up x3. MRSA positive of nares. Will follow contact precautions. IV site on left wrist 20 gauge intact. Will continue to monitor her and follow up with plan of care.
[2019-10-19 08:09] LABS: ANION GAP 13 mmol/L (5-15); BLOOD UREA NITROGEN 45 mg/dL (7-18); CALCIUM 9.3 MG/DL (8.5-10.1); CARBON DIOXIDE 24 MMOL/L (21-32); CHLORIDE 107 MMOL/L (98-107); POTASSIUM 4.4 MMOL/L (3.5-5.1); SODIUM 144 MMOL/L (136-145)
[2019-10-19] MEDS: cefTRIAXone 1 GM in D5W 55 ML IVPB SCH (08:36)
[2019-10-19] MEDS: Heparin 5000 units/ml inj SUBQ SCH ×2 (08:37→20:14)
--- NOTE | 2019-10-19 08:51 | Pulmonology Progress Note ---
Subjective Interval Events: More awake Constitutional: Reports: no symptoms HEENT: Repors: no symptoms Respiratory: Reports: no symptoms Cardiovascular: Reports: no symptoms Gastrointestinal/Abdominal: Reports: no symptoms Genitourinary: Reports: no symptoms Allergies: Coded Allergies: ASPIRIN (Verified Allergy, Intermediate, 06/25/17) Objective Last 24 Hour Vital Signs Date Time Temp Pulse Resp B/P (MAP) Pulse Ox O2 Delivery O2 Flow Rate FiO2 10/19/19 08:00 96.6 89 18 137/65 (89) 98 10/19/19 04:00 97.8 79 18 130/66 (87) 97 10/19/19 04:00 73 10/19/19 00:00 76 10/19/19 00:00 96.6 66 17 125/63 (83) 96 10/18/19 21:00 Nasal Cannula 3.0 10/18/19 20:00 96.9 70 18 122/52 (75) 97 10/18/19 20:00 71 10/18/19 16:00 96.3 90 18 134/68 (90) 95 10/18/19 16:00 71 10/18/19 12:00 96.4 100 18 123/70 (87) 95 10/18/19 12:00 73 10/18/19 09:00 Nasal Cannula 3.0 Intake and Output 10/18/19 10/19/19 19:00 07:00 Intake Total 75 ml 115 ml Output Total 260 ml Balance 75 ml -145 ml Intake Oral 20 ml 115 ml IV Total 55 ml Output Urine Total 200 ml Stool Total 60 ml # Voids 1 2 General Appearance: no acute distress HEENT: normocephalic Respiratory: chest wall non-tender, lungs clear Cardiovascular: normal peripheral pulses, normal rate Abdomen: normal bowel sounds Extremities: no cyanosis Microbiology Date/Time Source Procedure Growth Status 10/17/19 14:10 Nasal Nares MRSA Culture - Final Staphylococcus Aureus - Mrsa Complete 10/17/19 12:49 Urine,Clean Catch Urine Culture - Preliminary Lactobacillus Species Strep Species, Gamma-Hemolytic Resulted 10/17/19 14:10 Rectum VRE Culture - Final NO VANCOMYCIN RESISTANT ENTEROCOCCUS ... Complete Laboratory Tests 10/18/19 10:00: Sodium Level 137, Potassium Level 4.3, Chloride Level 100, Carbon Dioxide Level 25, Anion Gap 12, Blood Urea Nitrogen 75H, Creatinine 1.2, Estimat Glomerular Filtration Rate 42.9, Glucose Level 137H, Calcium Level 9.3 10/19/19 06:05: Sodium Level 144, Potassium Level 4.4, Chloride Level 107, Carbon Dioxide Level 24, Anion Gap 13, Blood Urea Nitrogen 45H, Creatinine 1.0, Estimat Glomerular Filtration Rate 53.0, Glucose Level 101, Calcium Level 9.3, White Blood Count 6.6, Red Blood Count 4.02L, Hemoglobin 12.7, Hematocrit 36.1L, Mean Corpuscular Volume 90, Mean Corpuscular Hemoglobin 31.7H, Mean Corpuscular Hemoglobin Concent 35.3, Red Cell Distribution Width 12.8, Platelet Count 307, Mean Platelet Volume 5.7L, Neutrophils (%) (Auto) 79.1H, Lymphocytes (%) (Auto) 10.4L , Monocytes (%) (Auto) 8.9, Eosinophils (%) (Auto) 0.5, Basophils (%) (Auto) 1.0 Current Medications Medications (Trade) Dose Ordered Sig/Beto Route PRN Reason Start Time Stop Time Status Last Admin Dose Admin Acetaminophen (Tylenol) 650 mg Q4H PRN ORAL Mild Pain (Pain Scale 1-3) 10/17/19 17:00 11/16/19 16:59 Ceftriaxone Sodium 1 gm/ Dextrose 55 ml @ 110 mls/hr Q24H IVPB 10/18/19 09:00 10/25/19 08:59 10/19/19 08:36 Dextrose (Dextrose 50%) 25 ml Q30M PRN IV Hypoglycemia 10/17/19 17:00 01/15/20 16:59 Dextrose (Dextrose 50%) 50 ml Q30M PRN IV Hypoglycemia 10/17/19 17:00 01/15/20 16:59 Famotidine (Pepcid) 20 mg BID ORAL 10/17/19 18:00 01/15/20 17:59 10/19/19 08:37 Heparin Sodium (Porcine) (Heparin 5000 units/ml) 5,000 units EVERY 12 HOURS SUBQ 10/17/19 21:00 12/01/19 20:59 10/19/19 08:37 Olanzapine (ZyPREXA) 2.5 mg BEDTIME PRN ORAL agitation 10/19/19 00:00 12/03/19 00:00 Potassium Chloride/Sodium Chloride 1,000 ml @ 60 mls/hr [id number] IV 10/19/19 01:00 11/18/19 00:59 10/19/19 01:33 Assessment/Plan Assessment/Plan IMPRESSION: 1. Possible CVA. 2. History of rectal wall thickening 3. Morphine overdose. Suspect unintentional 4. Rule out UTI. Current culture likely contaminant 5. Hypertension. 6. MRSA nares DISCUSSION: Seen by psych Continue home medication except narcotics On empiric antibiotics. I will follow. Lencho Givens MD Oct 19, 2019 08:51
--- NOTE | 2019-10-19 16:46 | NUR ---
TRANSFER TO FLOOR: Patient transferred to 4E, per Dr. Lagos. Report given to IZA Frias. No Belongings and medications given to IZA Frias. Family and or S/O informed of transfer.
--- NOTE | 2019-10-19 16:52 | NUR ---
nurse notes received patient from Tele via bed, patient awake, confused no sign of distress, no fascial grimace noted, on going IVF patent and infusing well via left wrist,reoriented to the unit ,v/s taken and recorded on fall and aspiration precaution , patient high risk for fall. kept clean dry and comfortable in bed juan bergman
--- NOTE | 2019-10-19 19:25 | NUR ---
HAND-OFF: Report given to Ms Benny bergman rn .
--- NOTE | 2019-10-19 19:28 | NUR ---
NURSE NOTES: Patient in bed, resting comfortably at this time. On room air with no signs of SOB or distress. IV intact and running IVF as ordered. HOB elevated. Bed locked, and in lowest position. Call light within reach. Bed alarm on. Will continue plan of care.
[2019-10-19] MEDS ORDERED: OLANZapine 2.5mg tab ORAL PRN ×2 (21:00)
--- NOTE | 2019-10-19 23:30 | Progress Note ---
DATE: 10/19/2019 CARDIOLOGY PROGRESS NOTE SUBJECTIVE: The patient is awake and alert. Still confused. OBJECTIVE: VITAL SIGNS: Blood pressure 137/65, pulse 89, respirations 18, and afebrile. Monitored rhythm, sinus with no ectopic. GENERAL: Strength appears grossly symmetrical. NECK: Supple. LUNGS: Clear. CARDIAC: Regular. Normal S1 and S2 with a 1/6 systolic murmur at base. ABDOMEN: Soft. EXTREMITIES: No edema. LABORATORY DATA: Sodium 144, potassium 4.4, bicarb 24, BUN 45, and creatinine 1. White count 6.6 and hemoglobin 12.7. IMPRESSION: 1. Probable subacute cerebrovascular accident. 2. Unintentional morphine overdose, resolved. 3. Possible urinary tract infection. 4. Hypertensive heart disease. 5. History of rectal wall thickening. PLAN: 1. No aspirin due to allergy. 2. Consider clopidogrel. 3. MRI of the brain to be considered. 4. Empiric antimicrobials for urinary infection. Thierry Lagos M.D. DR: SUSANNA JOB#: [id number] CC:
[2019-10-20] VITALS: BP 140/89
[2019-10-20 04:00] VITALS: BP 131/57
--- NOTE | 2019-10-20 07:15 | NUR ---
NURSE NOTES: Received patient in bed. Awake, A/Ox1. On room air. Patient denies pain. Ileostomy in RLQ, site intact. IV in the left wrist, site intact, IVF infusing as ordered. Bed low and locked.
[2019-10-20 08:00] VITALS: BP 122/57
[2019-10-20] MEDS: NS w/KCl 20mEq 1000ml 1,000 ML IV SCH (09:26)
[2019-10-20] MEDS: cefTRIAXone 1 GM in D5W 55 ML IVPB SCH (09:28)
[2019-10-20] MEDS: Heparin 5000 units/ml inj SUBQ SCH ×2 (09:29→20:45)
--- NOTE | 2019-10-20 10:17 | NUR ---
MRI BRAIN W/O COMPLETED. SANJEEV
--- NOTE | 2019-10-20 10:23 | Pulmonology Progress Note ---
Subjective Interval Events: More awake Constitutional: Reports: no symptoms HEENT: Repors: no symptoms Respiratory: Reports: no symptoms Cardiovascular: Reports: no symptoms Gastrointestinal/Abdominal: Reports: no symptoms Genitourinary: Reports: no symptoms Allergies: Coded Allergies: ASPIRIN (Verified Allergy, Intermediate, 06/25/17) Objective Last 24 Hour Vital Signs Date Time Temp Pulse Resp B/P (MAP) Pulse Ox O2 Delivery O2 Flow Rate FiO2 10/20/19 09:00 Room Air 10/20/19 08:00 98.1 58 16 122/57 (78) 97 10/20/19 04:00 97.8 60 19 131/57 (81) 96 10/20/19 00:00 97.8 67 19 140/89 (106) 95 10/19/19 21:00 Room Air 10/19/19 20:00 97.0 63 19 131/71 (91) 96 10/19/19 16:53 Room Air 10/19/19 16:52 97.4 89 18 118/70 (86) 97 10/19/19 16:00 97.8 87 18 106/64 (78) 97 10/19/19 13:04 97.5 85 18 139/58 (85) 98 10/19/19 12:00 96.6 89 18 139/58 (85) 98 Intake and Output 10/19/19 10/20/19 19:00 07:00 Intake Total 1060 ml 300 ml Output Total 400 ml 300 ml Balance 660 ml 0 ml Intake Oral 1000 ml 300 ml IV Total 60 ml Output Urine Total 400 ml 300 ml # Voids 2 General Appearance: no acute distress HEENT: normocephalic Respiratory: chest wall non-tender, lungs clear Cardiovascular: normal peripheral pulses, normal rate Abdomen: normal bowel sounds Extremities: no cyanosis Microbiology Date/Time Source Procedure Growth Status 10/17/19 14:10 Nasal Nares MRSA Culture - Final Staphylococcus Aureus - Mrsa Complete 10/17/19 12:49 Urine,Clean Catch Urine Culture - Preliminary Lactobacillus Species Strep Species, Gamma-Hemolytic Resulted 10/17/19 14:10 Rectum - Final NO CARBAPENEM-RESISTANT ENTEROBACTERI... Complete 10/17/19 14:10 Rectum VRE Culture - Final NO VANCOMYCIN RESISTANT ENTEROCOCCUS ... Complete Current Medications Medications (Trade) Dose Ordered Sig/Beto Route PRN Reason Start Time Stop Time Status Last Admin Dose Admin Acetaminophen (Tylenol) 650 mg Q4H PRN ORAL Mild Pain (Pain Scale 1-3) 10/19/19 17:00 11/16/19 16:59 Ceftriaxone Sodium 1 gm/ Dextrose 55 ml @ 110 mls/hr Q24H IVPB 10/20/19 09:00 10/25/19 08:59 10/20/19 09:28 Dextrose (Dextrose 50%) 25 ml Q30M PRN IV Hypoglycemia 10/19/19 17:00 01/15/20 16:59 Dextrose (Dextrose 50%) 50 ml Q30M PRN IV Hypoglycemia 10/19/19 17:00 01/15/20 16:59 Famotidine (Pepcid) 20 mg BID ORAL 10/19/19 18:00 01/15/20 17:59 10/20/19 09:25 Heparin Sodium (Porcine) (Heparin 5000 units/ml) 5,000 units EVERY 12 HOURS SUBQ 10/19/19 21:00 12/01/19 20:59 10/20/19 09:29 Olanzapine (ZyPREXA) 2.5 mg BEDTIME PRN ORAL agitation 10/19/19 21:00 12/03/19 00:00 Potassium Chloride/Sodium Chloride 1,000 ml @ 60 mls/hr [id number] IV 10/19/19 17:00 11/18/19 00:59 10/20/19 09:26 Assessment/Plan Assessment/Plan IMPRESSION: 1. Possible CVA. 2. History of rectal wall thickening 3. Morphine overdose. Suspect unintentional 4. Rule out UTI. Current culture likely contaminant 5. Hypertension. 6. MRSA nares DISCUSSION: Seen by psych Continue home medication except narcotics On empiric antibiotics. I will follow. MRI brain today Dc planing Lencho Givens MD Oct 20, 2019 10:23
--- NOTE | 2019-10-20 11:22 | NUR ---
*-* INSURANCE *-* ALL CLINICALS AND REVIEWS HAVE BEEN FAXED TO: Nikki Karishma Phelps REF: [id number] CM: [facility] Fax Clinicals: [phone]
[2019-10-20 12:00] VITALS: BP 104/49
--- NOTE | 2019-10-20 13:53 | Diagnostic Imaging Report ---
Indication: Altered mental status Technique: sagittal T1 fast spin echo, axial T1 FLAIR, axial T2 FLAIR, axial T2 FS PROPELLER, axial T2* GRE, axial diffusion weighted images. ADC and exponential ADC maps generated Comparison: Head CT dated 10/17/2019 Findings: Unusual finding of restricted diffusion in the choroid plexus in the left lateral ventricle. There is a small intense focus of abnormal diffusion signal more anteriorly and cephalad which demonstrates very low ADC value. The remainder of the left choroid plexus also demonstrates high diffusion signal although slightly less intense. ADC values are somewhat low but less so. There is questionable slight increased T2 signal on the T2-weighted images, not evident on the T2 FLAIR images. Elsewhere, no focal areas of diffusion restriction are demonstrated. In particular, no findings are demonstrated to correlate with the left [place] radiata abnormality described on recent MRI. There are not any T2 signal changes in this area either. No acute hemorrhage or edema. No mass effect nor midline shift. There is mild age-related enlargement of the ventricles and extra-axial CSF spaces some. There is periventricular deep white matter high T2 signal consistent with chronic microvascular ischemic change. The vascular flow voids are preserved. Visualized orbits and sinuses are unremarkable. Impression: Evidence of restricted diffusion within the left lateral ventricular choroid plexus. 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 Dr. Lagos was notified previously No findings associated with the suspected subacute [place] radiata infarct described on recent head CT. That finding was most likely artifactual. No evidence of acute brain parenchymal infarct, hemorrhage, or mass effect Chronic and age-related changes, as described
--- NOTE | 2019-10-20 13:57 | NUR ---
Social Work This SW followed up with patient (endorsed by SWGuanako) due to possible suicidal ideations. This SW met with patient at length who appears pleasantly confused at times, does not know where she is. Patient aware she is from [facility] and planning to return there upon discharge. Patient requesting her sister, Kavita Vences: [place] [phone] to be notified/contacted as needed. This SW spoke with Allopathic Doctor @ [facility] who explains they plan for patient to return to their facility, and confirmed patients correct contact information. Patient cheerful and laughing throughout this SW assessment, denied any SI/HI, depression or concerns at this time. Patient stating, "people think I'm crazy sometimes, but I act this way because it makes me happy." Patient states she is from [place] and has lived in [facility] for over 35 years, was to a Psychiatrist, does not have any children, use to work for the [employer].
--- NOTE | 2019-10-20 15:08 | NUR ---
TRANSIT WORKER Cognitive Communicative Evaluation PATIENT REFERRED FOR SPEECH, LANGUAGE, AND COGNITIVE COMMUNICATIVE EVALUATION BY DR HWANG: Please see complete report in care activity section. Patient seen at bedside, is alert and orientated to self and general location (state). Patient is agreeable to TRANSIT WORKER cognitive communicative evaluation. Patient further states experiencing odynophagia when swallowing and current diet consistency is full thin liquids diet. INITIAL IMPRESSIONS: Patient presenting with a mild to moderate cognitive communicative deficits. Per Patient's descriptions, initially exhibited symptoms of Wernicke's aphasia given Patients reports of poor comprehension and confabulating speech. However, at this time Patient's auditory comprehension appears intact. Head CT and MRI both with no significant findings. Patient presenting with cognitive communicative deficits in: orientation, memory (immediate, delayed), complex problem solving, reasoning, sequencing, and inhibition control. Patient's speech is fluent, however, verbal output is often non-cohesive with instances of verbal paraphasias (i.e. Patient states 'skiing' when intending to say 'jockey'), mild to moderate anomia noted during naming tasks, however, instances of anomia worsens during running speech. Also, instances of emotional lability (crying). Communication Tips: 1.Ask patient simple yes/no questions, repeat question if Patient is confused 2.If Patients speech does not make sense, ask Patient to clarify self 3.Repeat Patients response back to ensure correct response. 4.Please provide Patient frequent reality- orientation to location, time, and situation to minimize agitation. TRANSIT WORKER provided Patient orientation cue at bedside and plans to f/u 3x a week 1 week for cognitive re-training. TRANSIT WORKER spoke with Dr. Hwang who states Patient also requires a Bedside Swallow Evaluation, TRANSIT WORKER plans to complete with Patient tomorrow AM. TRANSIT WORKER will f/u with Patient tomorrow to complete bedside swallow evaluation and for cognitive re-training.
[2019-10-20 16:00] VITALS: BP 118/64
--- NOTE | 2019-10-20 16:20 | NUR ---
DIRECTOR SHIPDIRECTOR PROCESS ENGINEERING SI: ENCEPHALOPATHY T. 98.3 HR 58 RR 16 B/P 104/49 MRI BRAIN= Evidence of restricted diffusion within the left lateral ventricular choroid plexus. Unilateral choroid plexus infarct. IS: CEFTRIAXONE IV IVF NS KCL @ 60ML/HR HEPARIN SUBC MED/SURG STATUS
--- NOTE | 2019-10-20 16:23 | NUR ---
SCHOOL LABORATORY TECHNICIAN NOTES PLACED A CALL FROM OLU KHOURY FROM [facility] MESSAGE LEFT FOR POSSIBLE SNF PLACEMENT. OLU GOINS [phone] (P) [phone] (F) TRACKING NUMBER [id number]
--- NOTE | 2019-10-20 19:40 | NUR ---
HAND-OFF: Report given to Tk COUCH.
--- NOTE | 2019-10-20 19:41 | NUR ---
NURSE NOTES: Receive Patient in bed asleep and a&o x1 . No sob, pain,fever and cough. IV intact and asymptomatic. Bed in the lowest position,locked and alarm on. call light within reach we will keep monitoring the pt.
[2019-10-20 20:00] VITALS: BP 102/59
--- NOTE | 2019-10-20 23:21 | Psych Consult Progress Note ---
Psychiatry Progress Note Psychiatry Progress Note Subjective the pt is more alert however still confused the pt is min verbal. less irritable and more cooperative Medications Current Medications Medications (Trade) Dose Ordered Sig/Beto Route PRN Reason Start Time Stop Time Status Last Admin Dose Admin Acetaminophen (Tylenol) 650 mg Q4H PRN ORAL Mild Pain (Pain Scale 1-3) 10/19/19 17:00 11/16/19 16:59 10/20/19 20:39 Ceftriaxone Sodium 1 gm/ Dextrose 55 ml @ 110 mls/hr Q24H IVPB 10/20/19 09:00 10/25/19 08:59 10/20/19 09:28 Dextrose (Dextrose 50%) 25 ml Q30M PRN IV Hypoglycemia 10/19/19 17:00 01/15/20 16:59 Dextrose (Dextrose 50%) 50 ml Q30M PRN IV Hypoglycemia 10/19/19 17:00 01/15/20 16:59 Famotidine (Pepcid) 20 mg BID ORAL 10/19/19 18:00 01/15/20 17:59 10/20/19 17:14 Heparin Sodium (Porcine) (Heparin 5000 units/ml) 5,000 units EVERY 12 HOURS SUBQ 10/19/19 21:00 12/01/19 20:59 10/20/19 20:45 Olanzapine (ZyPREXA) 2.5 mg BEDTIME PRN ORAL agitation 10/19/19 21:00 12/03/19 00:00 Potassium Chloride/Sodium Chloride 1,000 ml @ 60 mls/hr [id number] IV 10/19/19 17:00 11/18/19 00:59 10/20/19 09:26 Allergies: Coded Allergies: ASPIRIN (Verified Allergy, Intermediate, 06/25/17) Objective Data Height (Feet): 5 Height (Inches): 2.00 Weight (Pounds): 144 General Appearance: no apparent distress, alert, confused, overweight Appearance: no abnormalities noted Behavior Mannerisms: good eye contact Mental Status Exam - Affect: blunted Mental Status Exam - Mood: depressed Speech: clear Mental Status Exam - Thought P: tangential Mental Status Exam - Suicidal: present Assessment/Plan Merritt I: acute encephalopathy resolved Dementia Zyprexa prn dw nurse Status: stable Bobby Mcarthur MD Oct 20, 2019 23:21
--- NOTE | 2019-10-20 23:30 | Progress Note ---
DATE: 10/20/2019 CARDIOLOGY PROGRESS NOTE SUBJECTIVE: The patient has no new complaints, still withdrawn but alert and confused. MRI of the brain reveals no signs of acute parenchymal infarct, previously noted findings on CT scan were likely artifactual. There was evidence of choroid plexus infarction however. OBJECTIVE: VITAL SIGNS: Blood pressure 104/49, heart rate 60, respiratory rate 18. LUNGS: Clear. CARDIAC: Regular. Normal S1, S2 with fourth heart sound. ABDOMEN: Soft. EXTREMITIES: No edema. IMPRESSION: 1. 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 2. Possible morphine overdose, unintentional with no signs of sequelae. 3. Hypertension with controlled blood pressure and single episode of low range blood pressure today. 4. Cerebrovascular disease with dementia. 5. Functional decline. 6. Urinary tract infection. PLAN: 1. No aspirin due to allergy. 2. Physical therapy and occupational therapy. 3. Empiric antimicrobials. 4. No additional antihypertensive therapy. 5. Hold parameters in place for low range blood pressure. Thierry Lagos M.D. DR: Brien JOB#: [id number] CC:
--- NOTE | 2019-10-20 23:31 | CDS Physician Query ---
Clarification is required for compliance, coding accuracy, and to reflect severity of illness for this patient. Dear Dr. Lencho Givens M.D. Date: 10/20/2019 CDI/CDS: [place] "84-year-old female transferred from a [facility] in [place] , where she had been admitted 10/17/19. Apparently, she overdosed on morphine tablets" [H&P Lencho Givens M.D. 2019 16:55] IMPRESSION: Metabolic encephalopathy, toxic encephalopathy, Hyponatremia, Possible subacute CVA, Acute on chronic renal failure, Moderate protein calorie malnutrition, Leukocytosis, Urinary tract infection, Possible sepsis, Possible history of rectal cancer, Prior compression fractures. Diverticular disease, Morphine overdose unintentionally. [PN Thierry Lagos M.D 10/17/2019 23:17] Clinical Finding Show: Vital sighs (10/16):T 97.1F, Pulse 80, RR 18, BP 115/58 Lab (10/16): Hemat; WBC 14.4, Neut 83.4 Chem; Glucose 143, Alkal. Ph 174 Urines; Ur.bacteria "Few", Ur/ Leuk Annabel 3+ Microbiology (10/16): LACTOBACILLUS SPECIES COLONY COUNT: >100,000 CFU/ ML Organism 2 STREP SPECIES, GAMMA-HEMOLYTIC COLONY COUNT: 30,000 - 40, 000 CFU/ML Treatment: Ceftriaxone Sod IV (10/16-10/24). A posssible diagnois of "SEPSIS" was made in the medical record on PN by Thierry Lagos M.D 10/16. Upon review, it is difficult to determine whether this diagnosis has been ruled in, ruled out,or is still being worked up. Please indicate below the status of the aforementioned diagnosis. [ ] Ruled IN [ ] Ruled out [ ] Other: Present on Admission: [] Yes [] No [] Clinically Undetermined Physician signature Date Please also document in your Progress Notes and/or Discharge Summary and indicate if the condition was present on admission. MTDD
--- NOTE | 2019-10-20 23:48 | CDS Physician Query ---
Clarification is required for compliance, coding accuracy, and to reflect severity of illness for this patient. Dear Dr. Lencho Givens M.D. Date: 10/20/2019 CDI/CDS: [place] "84-year-old female transferred from a [facility] facility in [place] , where she had been admitted 10/17/19. Apparently, she overdosed on morphine tablets" [H&P Lencho Givens M.D. 2019 16:55] IMPRESSION: Possible CVA, Morphine overdose, Rule out UTI, Hypertension. Clinical Finding Show: Vital sighs (10/16):T 97.1F, Pulse 80, RR 18, BP 115/58 Lab (10/16): Hemat; WBC 14.4, Neut 83.4 Chem; Glucose 143 Procedure: MRI Brain no Contrast (10/19): Impression: Evidence of restricted diffusion within the left lateral ventricular choroid plexus. 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 No evidence of acute brain parenchymal infarct, hemorrhage, or mass effect. Treatment: Heparin Sod 5000un SQ (10/16-10/18, 10/18-11/30). A posssible diagnois of "Possible CVA" was made in the medical record multiple times. Upon review, it is difficult to determine whether this diagnosis has been ruled in, ruled out,or is still being worked up. Please indicate below the status of the aforementioned diagnosis. [ x] Ruled IN [ ] Ruled out [ ] Other: Present on Admission: [x] Yes [] No [] Clinically Undetermined [] Ruled out Physician signature Date Please also document in your Progress Notes and/or Discharge Summary and indicate if the condition was present on admission. MTDD
[2019-10-21] VITALS: BP 101/58
[2019-10-21] MEDS: NS w/KCl 20mEq 1000ml 1,000 ML IV SCH ×2 (03:20→19:00)
[2019-10-21 04:00] VITALS: BP 118/53
--- NOTE | 2019-10-21 07:23 | NUR ---
HAND-OFF: Report given to IZA Bai.
--- NOTE | 2019-10-21 07:25 | NUR ---
NURSE NOTES: Received patient in bed. Awake, A/O x4. On room air. Patient denies pain. IV in the Left wrist, site intact, infusing IVF as ordered. Ileostomy in the RLQ, site intact. No signs of distress. Bed low and locked.
[2019-10-21 08:00] VITALS: BP 110/52
[2019-10-21] MEDS: cefTRIAXone 1 GM in D5W 55 ML IVPB SCH (08:55)
[2019-10-21] MEDS: Heparin 5000 units/ml inj SUBQ SCH (09:08)
--- NOTE | 2019-10-21 09:14 | NUR ---
NURSE NOTES: Alyse Ribeiro (sister in law, ) called and does not want the patient to go back to [facility].
--- NOTE | 2019-10-21 09:48 | NUR ---
REPORT: MOSAIC TECHNICIAN Cognitive Communicative Evaluation PATIENT REFERRED FOR SPEECH, LANGUAGE, AND COGNITIVE COMMUNICATIVE EVALUATION BY DR HWANG. (Please see complete report in care activity section.) Patient seen at bedside, alert and orientated to self and general location (state) x2. Patient is agreeable to MOSAIC TECHNICIAN cognitive communicative evaluation. Patient further states experiencing odynophagia when swallowing, with current diet consistency being a full thin liquids diet. INITIAL IMPRESSIONS: Patient presenting with a mild to moderate cognitive communicative deficits. Per Patient's descriptions, initially exhibited symptoms of Wernicke's aphasia given Patients reports of poor comprehension and confabulating speech. However, at this time Patient's auditory comprehension appears intact. Head CT and MRI both with no significant findings. Patient presenting with cognitive communicative deficits in: orientation, memory (immediate, delayed), complex problem solving, reasoning, sequencing, and inhibition control. Speech: Patient's speech is fluent, however, verbal output is often non-cohesive with instances of verbal paraphasias (i.e. Patient states 'skiing' when intending to say 'jockey'), mild to moderate anomia noted during naming tasks; with instances of anomia worsening in running speech. Language: Patient's language output is functional for adequate expression of wants and needs. However Patient noted with mild to moderate amount of verbal paraphasias (i.e. Patient states 'skiing' when intending to say 'jockey'), making spontaneous speech non-cohesive and difficult to comprehend. Patient is able to label +6/10 objects correctly around the room and Patient endorses experiencing mild to moderate anomia (word finding difficulties). Cognitive Communicative: Patients endorses deficits with immediate and delayed recall, with memory impacting Patients ability to complete the story telling task due to poor working memory. Patient presenting with poor sustained attention, divided attention, orientation, abstract reasoning and complex problem solving. Patient noted with instances of emotional lability (crying). The following communication tips may be implemented to increase Patients ability to effectively communicate with caregivers while at [facility]. Communication Tips: 1. Ask patient simple yes/no questions, repeat question if Patient is confused 2. If Patients speech does not make sense, ask Patient to clarify self 3. Repeat Patients response back to ensure correct response. 4. Please provide Patient frequent reality- orientation to location, time, and situation to minimize agitation. MOSAIC TECHNICIAN provided Patient education on POC, visual cue for orientation at bedside and plans to f/u 3x a week 1 week for cognitive re-training. MOSAIC TECHNICIAN plans to target Patient's ability to communicate with caregivers, problem solving for safety, and orientation to optimize Patient's quality of life and safety with at [facility]. MOSAIC TECHNICIAN spoke with Dr. Hwang who states Patient also requires a Bedside Swallow Evaluation, MOSAIC TECHNICIAN plans to complete with Patient tomorrow AM. MOSAIC TECHNICIAN will f/u with Patient tomorrow to complete bedside swallow evaluation and for cognitive re-training.
--- NOTE | 2019-10-21 10:42 | Pulmonology Progress Note ---
Subjective Interval Events: More awake Constitutional: Reports: no symptoms HEENT: Repors: no symptoms Respiratory: Reports: no symptoms Cardiovascular: Reports: no symptoms Gastrointestinal/Abdominal: Reports: no symptoms Genitourinary: Reports: no symptoms Allergies: Coded Allergies: ASPIRIN (Verified Allergy, Intermediate, 06/25/17) Objective Last 24 Hour Vital Signs Date Time Temp Pulse Resp B/P (MAP) Pulse Ox O2 Delivery O2 Flow Rate FiO2 10/21/19 09:00 Room Air 10/21/19 08:00 97.2 67 18 110/52 (71) 100 10/21/19 04:00 96.6 54 20 118/53 (74) 98 10/21/19 00:00 97.9 61 20 101/58 (72) 94 10/20/19 21:00 Room Air 10/20/19 20:00 97.9 60 20 102/59 (73) 94 10/20/19 16:00 96.8 65 18 118/64 (82) 97 10/20/19 12:00 98.3 60 18 104/49 (67) 93 Intake and Output 10/20/19 10/21/19 19:00 07:00 Intake Total 640 ml 660 ml Output Total 375 ml 400 ml Balance 265 ml 260 ml Intake Oral 580 ml IV Total 60 ml 660 ml Output Urine Total 200 ml Stool Total 375 ml 200 ml # Voids 1 General Appearance: no acute distress HEENT: normocephalic Respiratory: chest wall non-tender, lungs clear Cardiovascular: normal peripheral pulses, normal rate Abdomen: normal bowel sounds Extremities: no cyanosis Current Medications Medications (Trade) Dose Ordered Sig/Beto Route PRN Reason Start Time Stop Time Status Last Admin Dose Admin Acetaminophen (Tylenol) 650 mg Q4H PRN ORAL Mild Pain (Pain Scale 1-3) 10/19/19 17:00 11/16/19 16:59 10/20/19 20:39 Ceftriaxone Sodium 1 gm/ Dextrose 55 ml @ 110 mls/hr Q24H IVPB 10/20/19 09:00 10/25/19 08:59 10/21/19 08:55 Dextrose (Dextrose 50%) 25 ml Q30M PRN IV Hypoglycemia 10/19/19 17:00 01/15/20 16:59 Dextrose (Dextrose 50%) 50 ml Q30M PRN IV Hypoglycemia 6/7/20 17:00 01/15/20 16:59 Famotidine (Pepcid) 20 mg BID ORAL 10/19/19 18:00 01/15/20 17:59 10/21/19 08:55 Heparin Sodium (Porcine) (Heparin 5000 units/ml) 5,000 units EVERY 12 HOURS SUBQ 10/19/19 21:00 12/01/19 20:59 10/21/19 09:08 Olanzapine (ZyPREXA) 2.5 mg BEDTIME PRN ORAL agitation 10/19/19 21:00 12/03/19 00:00 10/21/19 02:17 Potassium Chloride/Sodium Chloride 1,000 ml @ 60 mls/hr [id number] IV 10/19/19 17:00 11/18/19 00:59 10/21/19 03:20 Assessment/Plan Assessment/Plan IMPRESSION: 1. Possible CVA. 2. History of rectal wall thickening 3. Morphine overdose. Suspect unintentional 4. Rule out UTI. Current culture likely contaminant 5. Hypertension. 6. MRSA nares DISCUSSION: Seen by psych Continue home medication except narcotics On empiric antibiotics. I will follow. MRI brain reviewed Dc planing to SNF Swallow Lencho Santos MD Oct 21, 2019 10:42
--- NOTE | 2019-10-21 10:52 | NUR ---
LEATHER CRAFTSMAN NOTE CALL RECEIVED FROM LOIS RAINES W/ACCESS [facility] IN RE TO DC PLAN FOR PATIENT. AWARE FAMILY DOES NOT WANT PATIENT TO RETURN TO [facility]. ADVISED THIS CM TO REFER TO THE FOLLOWING CONTRACTED SNF's [facility] WILL FOLLOW UP. OLU: [phone]
[2019-10-21 12:00] VITALS: BP 109/57
--- NOTE | 2019-10-21 12:19 | NUR ---
RD ASSESSMENT & RECOMMENDATIONS SEE CARE ACTIVITY FOR COMPLETE ASSESSMENT DAILY ESTIMATED NEEDS: Needs based on Cardiac 65.5kg 25-30 kcals/kg 6645-2696 total kcals 1-1.2 g protein/kg 66-79 g total protein 25-30 mL/kg 0807-8893 total fluid mLs NUTRITION DIAGNOSIS: 1) Altered nutrition related lab values r/t clinical status as evidenced by elev BUN on adm, now trending down (45), elev BG (101-143). CURRENT DIET: CLD PO DIET RECOMMENDATIONS: REGULAR DIET/ TEXTURE PER SCREEN PRINTING MACHINE LOADER UNLOADER ADDITIONAL RECOMMENDATIONS: 1) Check A1C, BG elevated 2) Obtain an accurate calibrated bed scale wt 3) Add GLUCERNA BID in b/w meals -> F/up w/ SCREEN PRINTING MACHINE LOADER UNLOADER for diet texture/ swallow eval 4) Monitor lytes, replete as needed
--- NOTE | 2019-10-21 13:49 | NUR ---
*-*DISCHARGE PLANNING*-* PATIENT HAS BEEN REFERRED TO: [facility] P: [phone], S/W [facility], ON LOCK DOWN. [facility] P: [phone] S/W [facility], NOT ACCEPTING ANY ADMISSIONS AT THE MOMENT, ON LOCK DOWN. [facility] P: [phone] S/W JARRED, NOT CONTRACTED WITH INSURANCE
--- NOTE | 2019-10-21 13:57 | NUR ---
STUDY ABROAD ADVISOR NOTE CALL MADE TO OLU WITH ACCESS @ [phone] INFORMED HER THAT [facility], [facility] AND [facility] ARE UNABLE TO ACCEPT PATIENT AT THIS TIME. PER OLU, ADVISED TO REFER PATIENT TO [facility] AND [facility]. IF ACCEPTED, OLU WILL PROVIDE CELINA. ENDORSED TO MONI LOZANO GOVERNMENT GAUGER TO REFER TO ABOVE SNF's
--- NOTE | 2019-10-21 14:10 | NUR ---
*-*DISCHARGE PLANNING*-* PATIENT HAS BEEN REFERRED TO: [facility] P: [phone] [facility] P: [phone] [facility] P: [phone] Addendum: 10/21/19 at 1447 by SURYA IYER LVN LVN [facility] CORRECT PHONE # [phone]
--- NOTE | 2019-10-21 15:14 | NUR ---
TUB WASHER BEDSIDE SWALLOW EVALUATION (Please see complete report in care activity section) PATIENT REFERRED FOR BEDSIDE SWALLOW EVALUATION BY DR. HWANG. DYSPHAGIA RISK FACTORS FOR THIS 84 Y.O. FEMALE: ACUTE ISSUES: Metabolic and toxic encephalopathies, Sub acute Cerebrovascular accident (MRI BRAIN= Evidence of restricted diffusion within the left lateral ventricular choroid plexus. Unilateral choroid plexus infarct), unintentional morphine overdose, MRSA Nares, Acute respiratory failure, Acute kidney injury with pre-renal azotemia, moderate protein-calorie malnutrition, hyponatremia, UTI. H/O: History of rectal wall thickening, COPD, GERD, RELEVANT MEDS: Zyprexa (antipsychotic); Pepcid (GERD). PLOF: Patient reports previously consuming regular solids with thin liquids. However, no transfer documents from prior living facility and TUB WASHER is unable to corroborate this. VITALS ON ROOM AIR: HR: 62; RR: 18; SP02: 98% Patient seen at bedside, is alert and orientated x4 (self, location, situation, and time). Patient's overall cognitive communicative status, speech, and language appearing to be improving. No instances of paraphasia noted, ongoing anomia. Patient's current diet consistently is Full Thin Liquids Diet. Patient reports mild to moderate Odynophagia and Globus Sensations; when asked where, Patient point to near manubrium. INITIAL IMPRESSIONS: Mild Oropharyngeal Dysphagia (pharyngeal phase appears to be worse versus oral phase) compounded by poor respiratory-swallow coordination (acute respiratory failure; h/o COPD), cognitive-behavioral deficits (Encephalopathies; Sub acute CVA) with prolonged and delayed oral and pharyngeal transit times, laryngeal elevation is fair per palpations and no significant overt s/s of aspiration with any PO trials. PATIENT PRESENTING A HIGH RISK FOR ASPIRATION GIVEN NEW CVA AND POOR BREATHING-SWALLOW COORDINATION. PO Trials: -Given Thin Liquids via cup sip and straw: No significant overt s/s of aspiration, intermittent slightly wet vocal quality noted s/p sequential sips via straw; suspect some trace penetration versus aspiration. -Given Hershey Thick Liquids via cup sip and Puree Solids: Adequate bolus control and labial seal, no oral residuals remaining in oral cavity, laryngeal elevation present upon palpation; No significant overt s/s of aspiration. -Given Soft Solids (Cracker): Increased and prolonged rotary mastication, mild oral residuals remaining on blade of tongue, cleared with liquid rinse. No significant overt s/s of aspiration. Patient did not present with any overt s/s of aspiration with any PO trials. Patient states wanting to 'start slow' and TUB WASHER educated Patient on various textures, aspiration precautions, and safe swallow strategies. Patient in agreement with recommended diet, and goal for Dysphagia tx is to safely and consistently consume >75% of recommended diet without overt s/s of aspiration or pulmonary compromise. Patient was also seen for cognitive re-training session, please see care activity daily progress report section for additional details. RECOMMENDATIONS: 1. Upgrade Patient to Moist Puree with Thin Liquids, please assist Patient with tray set-up; type and supplements per RD 2. TUB WASHER plans to f/u for dysphagia tx and management 3x a week x 1 week. 3. Patient also seen for cognitive re-training (tx note in care activity, TUB WASHER daily progress report). 4. Patient will require MBSS to determine swallow physiology and etiology of odynophagia and to further evaluate swallow efficacy and r/o silent aspiration. TUB WASHER plans to attempt tomorrow (10/22/19) if Patient is still in house. TUB WASHER made RN aware of results, recommendations, and TUB WASHER POC. Thank you for this referral! TUB WASHER [phone]
--- NOTE | 2019-10-21 15:32 | NUR ---
*-* INSURANCE *-* UPDTED CLINICALS AND REVIEWS HAVE BEEN FAXED TO: Nikki Karishma Phelps REF: [id number] CM: Monika Frank[facility] Fax Clinicals: [phone]
--- NOTE | 2019-10-21 15:40 | NUR ---
GROUND HAND DAILY TX NOTE Patient seen at bedside, is alert and pleasant for the duration of the session. Patient was seen s/p completion of Bedside Swallow Evaluation for cognitive re-training. Patient was also further educated and trained on aspiration precautions, safe swallow strategies, and results/recommendations of bedside swallow evaluation. Patients VSS for the duration of the session. VITALS ON ROOM AIR: HR: 62; RR: 18; SP02: 98% Patient was educated on GROUND HAND results, recommendations, and provided with education on the different levels/diet textures. Patient expresses agreement to moist Puree and Thin Liquids diet. -Of note, Patient did not exhibit any overt s/s of aspiration with soft solids, and prognosis for Patient's ability to be safely upgraded to soft solids/regular solids diet texture s/p Dysphagia tx and management is good. Patient's orientation is improving and upon entering the room, Patient is independently oriented x4 (self, location, situation, and time). Overall, cognitive communicative, speech, and language appear to be slowly improving. No instances of paraphasia noted, ongoing anomia. Per RN, Patient's ability to effectively express wants and needs continues to improve. -Patient with improving anomia, able to label objects around the room with 80% accuracy (yesterday 70% accuracy). Patient was trained and educated on word-finding strategies such as association and circumlocution techniques. Patient expressed understanding. -Patient educated and trained on memory compensatory strategies such as writing information down, rehearsal, repetition, using a calendar for important dates; and importance of a routine to optimize safety and memory during ADLs. Patient expressed understanding however would benefit from f/u education and training session. Patient does endorse changes in vocal quality since admission. Per Patient, voice is abnormally low in pitch, reduced vocal intensity/volume, and noted to have moderately reduced sustained phonation (sustained phonation of ah being >6 seconds). -Patient's vocal quality per perceptual analysis presents as strained, abnormally high in pitch, reduced intensity, instances of pitch breaks during sustained phonation task, reduced pitch variation, with cough strength additionally appearing slightly weak. Patient trained in diaphragmatic breathing, and after brief practice with diaphragmatic breathing, Patient given a break due to slight SOB. Suspect Patients change in vocal quality may be related to Patient being intubated for colectomy. GROUND HAND plans to continue to monitor Patients vocal quality and need for further voice tx. GROUND HAND plans to continue to f/u for dysphagia tx and management, cognitive re-training, and monitoring vocal quality. GROUND HAND [phone]
--- NOTE | 2019-10-21 15:54 | NUR ---
DISCHARGE PLANNING CALL RECE[facility] FROM [facility]. INFORMED THIS CM PATIENT ACCEPTED FOR ADMISSION. PATIENT ASSIGNED BED 216-B SKILLED. [facility] [address] [facility] [phone] - RN TO CALL THIS NUMBER FOR REPORT
[2019-10-21 16:00] VITALS: BP 112/58
--- NOTE | 2019-10-21 16:03 | NUR ---
ENGINEER OPERATIONS AND MAINTENANCE NOTE CALL RECEIVED FROM IRAIDA RAINES AT [facility] P: [phone]. [facility] CONFIRMED AUTHORIZATION WILL BE PROVIDED TO [facility]. SHE WILL HAVE AUTH GENERATED FOR TRANSPORTATION AND CALL THIS CM WITH AMBULANCE INFORMATION AND AUTH #.
--- NOTE | 2019-10-21 17:23 | NUR ---
DISCHARGE PLAN PATIENT TO BE DISCHARGE TO [facility]. TRANSPORTATION SCHEDULED WITH [facility] BY [facility] AT [facility]. CM CONFIRMED TRANSPORTATION WITH KELLY AT [facility] EXT [id number] WITH ETA AT 1830. IZA URIBE.
--- NOTE | 2019-10-21 17:28 | NUR ---
*-*DISCHARGE PLANNED*-* PATIENT HAS BEEN ACCEPTED AND WILL BE DISCHARGED WITH: [facility] P: [phone] FOR NURSE TO NURSE REPORT ROOM# 216.B SKILLED TRANSPORTATION SCHEDULED WITH [facility] BY [facility] AT [facility]. LOIS CONFIRMED TRANSPORTATION WITH KELLY AT [facility] EXT [id number] WITH ETA AT 1830. IZA URIBE. PLACED A CALL TO PATIENT SISTER, KEVIN CAPUTO, NO ANSWER.
[2019-10-21] MEDS ORDERED: LEVAQUIN500 MG ORAL (17:58)
[2019-10-21] MEDS ORDERED: OLANZAPINE2.5 MG ORAL (17:59)
[2019-10-21] MEDS ORDERED: ACETAMINOPHEN325 M1 ORAL ×2 (17:59→18:00)
[2019-10-21] MEDS ORDERED: LOVENOX40 MG/0.4 SUBQ (18:02)
[2019-10-21] MEDS ORDERED: ZOFRAN4 M1 ORAL (18:02)
--- NOTE | 2019-10-21 18:19 | NUR ---
NURSE NOTES: Report given to Ofelia COUCH at [facility].
--- NOTE | 2019-10-21 19:28 | NUR ---
HAND-OFF: Report given to Delaney COUCH.
--- NOTE | 2019-10-21 19:55 | NUR ---
NURSE NOTES: Received patient comfortably sleeping, awaiting ambulance for transfer.
[2019-10-21 20:00] VITALS: BP 98/71
--- NOTE | 2019-10-21 21:01 | NUR ---
NURSE NOTES: Patient transferred to SNF as ordered by ambulance.
--- NOTE | 2019-10-21 23:06 | Psych Consult Progress Note ---
Psychiatry Progress Note Psychiatry Progress Note Subjective the pt is not in acute distress. poor memory easily agitated. no si/hi Allergies: Coded Allergies: ASPIRIN (Verified Allergy, Intermediate, 06/25/17) Objective Data Height (Feet): 5 Height (Inches): 2.00 Weight (Pounds): 144 General Appearance: WD/WN, no apparent distress, alert, confused, overweight Appearance: disheveled Behavior Mannerisms: poor eye contact Mental Status Exam - Affect: blunted Mental Status Exam - Mood: irritable Speech: clear Mental Status Exam - Suicidal: not present Assessment/Plan Status: stable Bobby Mcarthur MD Oct 21, 2019 23:06
--- NOTE | 2019-10-22 09:45 | Progress Note ---
DATE: 10/21/2019 CARDIOLOGY PROGRESS NOTE SUBJECTIVE: The patient passed swallow evaluation. There is no evidence of cerebrovascular infarct, but choroid plexus infarct. OBJECTIVE: VITAL SIGNS: Blood pressure 110/52, heart rate 67, respiratory rate 18. Monitored rhythm, sinus and sinus bradycardia and no pauses prior to transfer of the monitor. LUNGS: Clear. CARDIAC: Regular. ABDOMEN: Soft. EXTREMITIES: No edema. IMPRESSION: 1. No residual deficits following unintentional morphine overdose. 2. Choroidal plexus infarct. 3. Hypertension with low-range blood pressure now. 4. Paroxysmal sinus bradycardia of no clinical consequence. 5. Cerebrovascular disease with dementia. 6. Urinary tract infection. PLAN: 1. No role for antihypertensive therapy at this time. 2. No indication for permanent pacemaker. 3. Maintain adequate hydration. 4. Antimicrobial management. Thierry Lagos M.D. DR: Denise JOB#: [id number] CC:
--- NOTE | 2019-10-23 08:13 | Discharge Summary ---
Discharge Summary Discharge Summary _ DATE OF ADMISSION: 10/17/2019 DATE OF DISCHARGE: 10/21/2019 DISCHARGED BY: Dr. Givens REASON FOR ADMISSION: 84 years old female with past medical history of COPD, was transferred from [facility] for evaluation. Patient apparently overdosed on morphine pills. No further information initially was available. Patient was brought for altered mental status. Patient received Narcan with some improvement in mental status. Upon evaluation vital signs were stable. Pulse oximetry was stable on room air. Laboratory work-up revealed leukocytosis WBC 14.4, hemoglobin 13.7, hematocrit 30.4, platelet count 325. Urinalysis revealed +1 protein ,+3 leukocyte esterase, pyuria and few bacteria. Sodium 131, chloride 94. BUN 77, creatinine 1.6. Glucose 143. Troponin 0.015. EKG revealed sinus rhythm , no acute ischemic changes. Albumin 2.8. Urine toxicology screen was positive for opiates and benzodiazepine. Chest x-ray revealed no acute cardiopulmonary pathology. CT of the head revealed findings of possible subacute lacunar infarct. Negative for acute intracranial bleeding or mass-effect. Chronic and age-related changes noted. Patient subsequently admitted for further management . CONSULTANTS: cord splicer psychiatrist [facility] COURSE: Patient admitted. Patient subsequently undergone MRI of the brain ,which revealed evidence of restricted diffusion within the left lateral ventricular choroid plexus. Findings most likely represented unilateral choroid plexus infarct. No findings associated with suspected subacute middleton radiate infarct , described on recent CT head ; the finding was most likely artifactual. No evidence of acute brain parenchymal infarct, hemorrhage or mass-effect. Chronic and age-related changes noted. Urine culture revealed Enterococcus faecalis and Lactobacillus. Patient received antibiotic for UTI. Leukocytosis resolved. No fevers. DVT and GI prophylaxis provided. Renal parameters and electrolytes were closely monitored, electrolytes corrected as needed, and nephrotoxins were avoided. Creatinine from 1.6 down to 1.0. Patient had a history of hypertension, but at this time patient exhibited low range blood pressures . No need for antihypertensive therapy at this time. No indication for permanent pacemaker as per cord splicer. Sinus bradycardia was paroxysmal and of no clinical consequences. Adequate hydration maintained. Bedside swallow evaluation revealed high risk for aspiration. Diet texture provided as per speech therapist recommendations with strict aspiration precautions. Zyprexa provided as needed as per psychiatrist recommendations. Patient clinically stabilized and was ready for discharge to residential facility for continuation of care. 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 DISCHARGE INSTRUCTIONS: Patient was discharged to the residential facility. Follow up with medical doctor at the facility. I have been assigned to dictate discharge summary for this account. I was not involved in the patient's management. Gaby Richards NP Oct 23, 2019 08:13
--- NOTE | 2019-10-23 15:53 | NUR ---
*-* INSURANCE *-* discharge summary has been faxed to: [facility] [employer] #: [id number] P: [phone] F: [phone]
== END 2019-10-21 20:50 | disposition short-term general hospital (02) | DRG 917 ==
LOC: EDBD 11:57 → EDBEDREQ 12:48 → EMR 13:33 → 2E 14:18 → EDBEDREQ 14:26 → 2E 22:19 → 4E 10-19 16:43
DX: T40.2X1A Poisoning by other opioids, accidental (unintentional), initial encounter (principal); A41.9 Sepsis, unspecified organism; I63.89 Other cerebral infarction; G92 Toxic encephalopathy; N39.0 Urinary tract infection, site not specified; E87.1 Hypo-osmolality and hyponatremia; N17.9 Acute kidney failure, unspecified; E44.0 Moderate protein-calorie malnutrition; K57.90 Diverticulosis of intestine, part unspecified, without perforation or abscess without bleeding; J44.9 Chronic obstructive pulmonary disease, unspecified; Z88.6 Allergy status to analgesic agent; I11.9 Hypertensive heart disease without heart failure; F01.50 Vascular dementia, unspecified severity, without behavioral disturbance, psychotic disturbance, mood disturbance, and anxiety; R00.1 Bradycardia, unspecified; R13.10 Dysphagia, unspecified; Y92.099 Unspecified place in other non-institutional residence as the place of occurrence of the external cause
CPT/HCPCS: 36415; 70450; 70551; 71045; 80048; 80053; 80307; 81003; 84484; 85025; 85610; 85730; 87081; 87086; 87181; 92610; 93005; 96361; 96365; 96375; 99285; J2310; J7030